=== PATIENT | male | born 1960 | race Caucasian/White ===

== ENCOUNTER 2020-07-30 09:34 | Outpatient (REF) | payer BC, SELFPAY ==
--- NOTE | 2020-07-30 09:30 | EMG_ITS ---
Bilateral median and ulnar motor and sensory studies were performed. Bilateral radial sensory study was performed and paraspinal muscles were tested. IMPRESSION: 1. Mild left median neuropathy across carpal tunnel, the right was normal. 2. No evidence of cervical radiculopathy or any other nerve entrapment neuropathy. MD JARROD Goodwin/CARLEE / [phone]
== END 2020-07-30 09:35 | disposition home or self-care (01) ==
LOC: HO.NEURO 09:34
PROVIDERS: Absent Provider Internal Medicine; Visit Provider Internal Medicine
DX: Z20.828 Contact with and (suspected) exposure to other viral communicable diseases (principal); G56.03 Carpal tunnel syndrome, bilateral upper limbs; M47.812 Spondylosis without myelopathy or radiculopathy, cervical region
CPT/HCPCS: 95860; 95886; 95911; C9803; U0003

== ENCOUNTER 2020-09-02 06:37 | Outpatient (REF) | payer BC, SELFPAY | END 2020-09-02 06:38 | disposition home or self-care (01) | LOC: HO.LAB 06:37 | PROVIDERS: Visit Provider Internal Medicine | DX: Z20.828 Contact with and (suspected) exposure to other viral communicable diseases (principal) | CPT/HCPCS: C9803; U0003 ==

== ENCOUNTER 2020-09-30 05:52 | Emergency (ER) | payer OTHER, SELFPAY ==
--- NOTE | 2020-09-30 | ECG_ITS ---
Test Reason : PALPATATIONS Blood Pressure : / mmHG Vent. Rate : 073 BPM Atrial Rate : 073 BPM P-R Int : 142 ms QRS Dur : 088 ms QT Int : 380 ms P-R-T Axes : 051 028 049 degrees QTc Int : 418 ms Normal sinus rhythm Possible Left atrial enlargement Borderline ECG When compared with ECG of 25-DEC-2019 04:15, No significant change was found Referred By: Audra Linsdey Electronically Signed By:Fidel Webster
[2020-09-30 05:57] VITALS: PULSE 73; RESP 19; TEMP 36.6; O2SAT 97; BMI 30.9
--- NOTE | 2020-09-30 06:16 | PC.NURSE ---
MD is at bedside for evaluation
--- NOTE | 2020-09-30 06:33 | ED.GENADULT ---
HPI - General Adult General Chief complaint: General Medical Stated complaint: TACHYCARDIA Time Seen by Provider: 09/30/20 06:23 Source: patient Mode of arrival: ambulatory History of Present Illness HPI narrative: This is a 60-year-old male who suffers from anxiety and states that he noticed that his heart was having palpitation once every 3rd beat and then began feeling the palpitation more frequently these are not associated with any headache, dizziness, lightheadedness, nausea, diaphoresis, chest pain, shortness of breath and patient states that he drink a glass of water and that his symptoms have since subsided. He states he is currently under workup and had an echo last week but no one has called him with the results and that he is in line to undergo a Holter monitor which he states was done approximately 5 years ago but states that that result was not significant. Patient states he does suffer from anxiety but not until his heart starts having palpitations. Related Data Home Medications Medication Instructions Recorded Confirmed amlodipine 1 tab PO DAILY 09/30/20 09/30/20 aspirin 1 tab PO DAILY 09/30/20 09/30/20 lisinopril-hydrochlorothiazide 1 tab PO BID 09/30/20 09/30/20 Allergies Allergy/AdvReac Type Severity Reaction Status Date / Time No Known Allergies Allergy Verified 09/30/20 06:08 [No Known Allergies*] Review of Systems Review of Systems: Pertinent positives and negatives as stated in HPI and 10 point review of systems is otherwise negative. [facility] Past Medical History Source: nursing notes reviewed Medical History HTN (hypertension) Palpitation Social History Social History Alcohol intake: unknown Smoking Status: Never smoker Use of substances other than those prescribed or required for medical reasons: No Advance Directives: No Physical Exam Vital Signs: Vital Signs: Last Vital Signs Temp 98 F 09/30/20 05:57 Pulse 73 09/30/20 05:57 Resp 19 09/30/20 05:57 Pulse Ox 97 09/30/20 05:57 Body Mass Index 30.9 VITAL SIGNS: Reviewed. GENERAL: Well developed, well nourished, in no acute distress. NOSE: Nares patent bilateral OROPHARYNX: no oral lesions noted, posterior pharynx clear and non-erythematous without noted tonsillar enlargement/erythema/exudates NECK: Supple, no adenopathy LUNGS: Normal breath sounds. No adventitious sounds or accessory muscle use. SpO2<97> CARDIOVASCULAR: Regular rate and rhythm without noted murmurs, no JVD or lower extremity edema. ABDOMEN: Soft, non-tender, non-distended with bowel sounds. No rigidity. No guarding. No palpable masses or hernias noted NEUROLOGIC: Alert and oriented x 4. Course Course Course Narrative: This is a 60 year male with history and clinical presentation most consistent with suspected anxiety associated with the palpitations and currently asymptomatic. Will evaluate with labs, EKG, TSH. On review of all investigations there are no acute findings from baseline. All results and findings were discussed with patient at bedside and he was discharged in stable condition and instructed to continue with his current workup. Medical Decision Making Lab Data Result diagrams: 09/30/20 06:26 09/30/20 06:26 Labs: Lab Results 09/30/20 09/30/20 09/30/20 Range/Units 06:26 06:26 06:26 WBC 6.4 (4.8-10.8) X10*3/uL RBC 4.60 (4.60-5.80) X10*6/uL Hgb 14.7 (14.0-18.0) g/dl Hct 43.4 (42-52) % MCV 94.3 (80-98) fL MCH 32.0 (27.0-33.0) pg MCHC 33.9 (31.0-36.0) g/dl RDW 13.2 (11.0-16.0) % Plt Count 172 (160-400) X10*3/uL MPV 11.0 (9.4-12.4) fL Immature Gran % (Auto) 0.2 (0.0-0.4) % Neut % (Auto) 52.2 (45-73) % Lymph % (Auto) 36.4 (20-40) % Dunn % (Auto) 9.1 (2-11) % Eos % (Auto) 1.6 (0-4) % Baso % (Auto) 0.5 (0-2) % Lymph # (Auto) 2.3 (1.2-4.9) X10*3/uL Dunn # (Auto) 0.6 (0.1-1.2) X10*3/uL Eos # (Auto) 0.1 (0.0-0.4) X10*3/uL Baso # (Auto) 0.0 (0.0-0.2) X10*3/uL Abs Immat Gran (auto) 0.01 (0.00-0.03) X10*3/uL Absolute Neuts (auto) 3.4 (2.0-8.3) X10*3/uL Absolute Nucleated RBC 0.000 (0.0-0.012) X10*3/uL Nucleated RBC % (auto) 0.0 (0.0-0.2) /100WBC Sodium 136 (135-145) mmol/L Potassium 3.9 (3.3-5.1) mmol/l Chloride 102 (96-108) mmol/L Carbon Dioxide 23 (22-29) mmol/L Anion Gap 15 (12-20) BUN 34 H (9-16) mg/dL Creatinine 1.25 (0.5-1.4) mg/dL Estim Creat Clear Calc 73.7 Estimated GFR 59 Random Glucose 135 H (60-115) mg/dL Calcium 9.0 (8.4-10.2) mg/dL Magnesium 1.8 (1.6-2.6) mg/dL Total Bilirubin 0.5 (0.0-1.0) mg/dL AST 20 (5-37) U/L ALT 29 (0-40) U/L Alkaline Phosphatase 60 (39-117) U/L Total Protein 6.9 (6.5-8.0) g/dL Albumin 4.2 (3.5-5.0) g/dL ECG Data Attestation: I personally reviewed and interpreted this ECG as follows: Prior ECG tracings: available for review (12/25/2019 no acute changes in comparison) Interpretation: Normal sinus rhythm, HR -73, no evidence of acute ischemia, AR/QRS/QTC are within normal limits. Discharge Plan Discharge Clinical Impression: Anxiety, Heart palpitations Patient Disposition: Home, Self-Care Instructions: Heart Palpitations (ED), Anxiety (ED) Additional Instructions: Resume all home medications as prescribed. Continue with recommended workup for your palpitations and follow-up with your primary care provider by calling the office today. Avoid caffeinated products, this includes sodas/T/coffee. Prescriptions: No Action lisinopril-hydrochlorothiazide 20-12.5 mg tablet 1 tab PO BID RF: 0 amlodipine 2.5 mg tablet 1 tab PO DAILY RF: 0 aspirin 81 mg tablet,chewable 1 tab PO DAILY RF: 0 Referrals: [facility] [Primary Care Provider] - 2 days (Re-evaluation for her palpitations)
[2020-09-30 06:38] LABS: MANUAL DIFF FLAG NO
[2020-09-30 06:45] LABS: Basophils Percent Auto 0.5 % (0-2); Eosinophils Absolute Auto 0.1 X10*3/uL (0.0-0.4); Eosinophils Percent Auto 1.6 % (0-4); Hematocrit 43.4 % (42-52); Hemoglobin 14.7 g/dl (14.0-18.0); Imm Gran Abs Auto 0.01 X10*3/uL (0.00-0.03); Imm Gran Pct Auto 0.2 % (0.0-0.4); Lymphocytes Absolute Auto 2.3 X10*3/uL (1.2-4.9); Lymphocytes Percent Auto 36.4 % (20-40); Mean Corpuscular HGB Conc 33.9 g/dl (31.0-36.0); Mean Corpuscular Volume 94.3 fL (80-98); Monocytes Absolute Auto 0.6 X10*3/uL (0.1-1.2); Monocytes Percent Auto 9.1 % (2-11); Neutrophils Absolute Auto 3.4 X10*3/uL (2.0-8.3); Neutrophils Percent Auto 52.2 % (45-73); Platelet Count 172 X10*3/uL (160-400); Red Cell Distribution Width 13.2 % (11.0-16.0); White Blood Count 6.4 X10*3/uL (4.8-10.8)
[2020-09-30 07:04] LABS: Magnesium 1.8 mg/dL (1.6-2.6)
[2020-09-30 07:05] LABS: Alanine Aminotransferase 29 U/L (0-40); Albumin Level 4.2 g/dL (3.5-5.0); Alkaline Phosphatase 60 U/L (39-117); Anion Gap 15 (12-20); Aspartate Amino Transferase 20 U/L (5-37); Bilirubin Total 0.5 mg/dL (0.0-1.0); Blood Urea Nitrogen 34 mg/dL (9-16); Carbon Dioxide 23 mmol/L (22-29); Chloride 102 mmol/L (96-108); Creatinine Clr Calc Pharmacy 73.7; Estimated Glomerular Filt Rate 59; Glucose Random 135 mg/dL (60-115); Potassium 3.9 mmol/l (3.3-5.1); Sodium 136 mmol/L (135-145); Total Protein 6.9 g/dL (6.5-8.0)
[2020-09-30 07:25] LABS: TSH reflex Free T4 0.88 mIU/mL (0.32-4.0)
[2020-09-30 07:48] VITALS: BP 169/97; PULSE 65; RESP 18; TEMP 36.7; O2SAT 96
== END 2020-09-30 07:52 | disposition home or self-care (01) ==
PROVIDERS: Emergency Provider Student in an Organized Health Care Education/Training Program
DX: R00.0 Tachycardia, unspecified (principal); R00.2 Palpitations; F41.9 Anxiety disorder, unspecified; Z79.899 Other long term (current) drug therapy
CPT/HCPCS: 36415; 80053; 83735; 84443; 85025; 93005; 99283; 99284

== ENCOUNTER 2020-10-18 03:43 | Emergency (ER) | payer OTHER, SELFPAY ==
--- NOTE | 2020-10-18 03:51 | ED.ARRPALP ---
HPI - Arrhythmia/Palpitations General Chief Complaint: Anxiety Stated Complaint: PALPITATIONS, ANXIETY Time Seen by Provider: 10/18/20 03:48 Source: patient and old records reviewed Mode of arrival: ambulatory Limitations: no limitations History of Present Illness HPI narrative: anxiety - states he was told by his Manager [employer] that he might have renal insufficiency and for the past 3 days he cannot get past it and wants his kidney function checked, c/o sore back that went away not sure if its where his kidneys are, took a xanax yesterday, noted its making his heart race, drank before bed complaint: heart racing Onset (ago): day(s) (3) Duration: intermittent Severity: mild Context: occurred during rest Arrhythmia history: other (hx of palpitations in the past has had holter and ECHO with cards follow up no known cause) Associated symptoms: denies other symptoms Related Data Home Medications Medication Instructions Recorded Confirmed amlodipine 1 tab PO DAILY 09/30/20 09/30/20 aspirin 1 tab PO DAILY 09/30/20 09/30/20 lisinopril-hydrochlorothiazide 1 tab PO BID 09/30/20 09/30/20 Allergies Allergy/AdvReac Type Severity Reaction Status Date / Time No Known Allergies Allergy Verified 09/30/20 06:08 [No Known Allergies*] Review of Systems Review of Systems: Constitutional : No Weight loss, No Fever, No Chills, No Fatigue, No Malaise ENT/Mouth : No sore throat, No Rhinorrhea Eyes: No Eye Pain, No Swelling, No Redness Cardiovascular : No Chest Pain, No SOB, No Dyspnea on Exertion, No Orthopnea, No Edema, pos Palpitations Respiratory : No Cough, No Sputum, No Wheezing Gastrointestinal : No Nausea, No Vomiting, No Diarrhea, No Constipation, No abdominal Pain, No Hematochezia, No Melena Genitourinary : No Dysuria, No Urinary Frequency, No Hematuria, Musculoskeletal : No joint pain, No Myalgias, No Joint Swelling, pos intermittent back pain Skin : No Skin Lesions, No rash Neuro : No Weakness, No Numbness, No Dizziness, No Headache Psych : pos Anxiety/Panic, No Depression Heme/Lymph: No Bruising, No Bleeding,No Lymphadenopathy Endocrine : No Polyuria, No Polydipsia All other systems reviewed and are negative [facility] Past Medical History Attestation statement: The following information was validated with the patient. Medical History HTN (hypertension) Palpitation Social History Social History Alcohol intake: unknown Smoking Status: Never smoker Advance Directives: No Advance Directives Information Provided: No Physical Exam Vital Signs: Vital Signs: Last Vital Signs Temp 97.3 F 10/18/20 03:58 Pulse 84 10/18/20 03:58 Resp 16 10/18/20 03:58 BP 173/111 H 10/18/20 03:58 Pulse Ox 96 10/18/20 03:58 Body Mass Index 30.9 Appearance: Alert. Oriented X3. No acute distress. Anxious Eyes: Pupils equal, round and reactive to light. ENT: Pharynx normal. Neck: Normal inspection. Neck supple. CVS: Normal heart rate and rhythm. Pulses normal. Respiratory: No respiratory distress. Breath sounds normal. Abdomen: Soft and nontender. Back: nontender, no CVA ttp Skin: Skin warm and dry. Normal skin color. Normal skin turgor. Extremities: No lower extremity edema. No calf ttp Neuro: Oriented X 3. No motor deficit. No sensory deficit. Course Course Course Narrative: BP improved, workup negative, stable for DC MDM - Arrhythmia/Palpitations MDM Narrative Medical decision making narrative: 60 yo male with anxiety and lonstanding palpitations with no source followed by Cardiology comes in requesting a blood test to make sure his kidneys are okay, patient is very anxious, he has no current pain to suggest stone - at this time will obtain EKG, UA, BMP - suspect ETOH is playing a part in his symptoms, xanax ordered, if workup negative stable for DC. Lab Data Result diagrams: 10/18/20 04:28 Labs: Lab Results 10/18/20 10/18/20 10/18/20 Range/Units 04:28 04:28 04:28 Sodium 137 (135-145) mmol/L Potassium 3.9 (3.3-5.1) mmol/l Chloride 102 (96-108) mmol/L Carbon Dioxide 25 (22-29) mmol/L Anion Gap 14 (12-20) BUN 39 H (9-16) mg/dL Creatinine 1.49 H (0.5-1.4) mg/dL Estim Creat Clear Calc 61.8 Estimated GFR 48 Random Glucose 155 H (60-115) mg/dL Calcium 9.2 (8.4-10.2) mg/dL Urine Color YELLOW Urine Appearance CLEAR Urine pH 6.0 (5.0-8.0) Ur Specific [place] 1.010 (1.005-1.025) Urine Protein NEG (NEG-TRACE) MG/DL Urine Glucose (UA) NEG (NEG) MG/DL Urine Ketones NEG (NEG) MG/DL Urine Blood NEG (NEG) Urine Nitrite NEG (NEG) Ur Leukocyte Esterase NEG (NEG) Ethyl Alcohol < 10 mg/dL ECG Data Attestation: I personally reviewed and interpreted this ECG as follows: ECG interpretation date: 10/18/20 ECG interpretation time: 04:24 Interpretation: Rate: 75 Rhythm: NSR [place]: normal Normal P waves. Normal DIVYA. Normal QRS complex. ST T wave : normal no CRISTEL qTC: normal prior studies: no acute ischemia The study has been interpreted contemporaneously by me. . Discharge Plan Discharge Clinical Impression: Acute anxiety, Chronic kidney insufficiency Patient Disposition: Home, Self-Care Instructions: Anxiety (ED), Chronic Kidney Disease (ED) Additional Instructions: return to ED for any worsening symptoms or concerns YOUR CREATININE IS 1.49 IN 2018 IT WAS 1.54 IT IS REMAINING STABLE AT THIS TIME Prescriptions: No Action lisinopril-hydrochlorothiazide 20-12.5 mg tablet 1 tab PO BID RF: 0 amlodipine 2.5 mg tablet 1 tab PO DAILY RF: 0 aspirin 81 mg tablet,chewable 1 tab PO DAILY RF: 0 Referrals: Navarro Saucedo PA-C [Primary Care Provider] - 2 days (if not better)
--- NOTE | 2020-10-18 03:52 | ECG_ITS ---
Test Reason : ANXIETY Blood Pressure : / mmHG Vent. Rate : 075 BPM Atrial Rate : 075 BPM P-R Int : 140 ms QRS Dur : 096 ms QT Int : 382 ms P-R-T Axes : 051 029 053 degrees QTc Int : 426 ms Normal sinus rhythm Normal ECG When compared with ECG of 30-SEP-2020 05:56, No significant change was found Referred By: Amada Whipple Electronically Signed By:ELMER CULVER
[2020-10-18 03:58] VITALS: BP 173/111; PULSE 84; RESP 16; TEMP 36.3; O2SAT 96; BMI 30.9
[2020-10-18] MEDS: ALPRAZolam 0.5 MG TABLET PO (04:17)
[2020-10-18 04:35] LABS: Glucose Urine UA NEG (NEG); Leukocyte Esterase Urine NEG (NEG); Nitrite Urine NEG (NEG); Urine Blood NEG (NEG); Urine Ketones NEG (NEG); Urine Protein NEG (NEG-TRACE)
[2020-10-18 04:36] LABS: Appearance Urine CLEAR; Color Urine YELLOW
[2020-10-18 04:57] LABS: Ethanol < 10 mg/dL
[2020-10-18 04:58] LABS: Anion Gap 14 (12-20); Blood Urea Nitrogen 39 mg/dL (9-16); Calcium 9.2 mg/dL (8.4-10.2); Carbon Dioxide 25 mmol/L (22-29); Chloride 102 mmol/L (96-108); Creatinine Clr Calc Pharmacy 61.8; Estimated Glomerular Filt Rate 48; Glucose Random 155 mg/dL (60-115); Potassium 3.9 mmol/l (3.3-5.1); Sodium 137 mmol/L (135-145)
[2020-10-18 05:02] VITALS: BP 139/86; PULSE 63; RESP 16; O2SAT 97
== END 2020-10-18 05:27 | disposition home or self-care (01) ==
PROVIDERS: Emergency Provider Emergency Medicine; PCP Physician Assistant
DX: R00.2 Palpitations (principal); F41.1 Generalized anxiety disorder; F43.0 Acute stress reaction; I12.9 Hypertensive chronic kidney disease with stage 1 through stage 4 chronic kidney disease, or unspecified chronic kidney disease; N18.9 Chronic kidney disease, unspecified; Z79.899 Other long term (current) drug therapy
CPT/HCPCS: 36415; 80048; 80320; 81003; 93005; 99283

== ENCOUNTER 2020-10-28 07:16 | Outpatient (REF) | payer OTHER, SELFPAY ==
[2020-10-28 08:01] LABS: Hematocrit 45.6 % (42-52); Mean Corpuscular HGB Conc 32.9 g/dl (31.0-36.0); Mean Corpuscular Hemoglobin 31.2 pg (27.0-33.0); Mean Corpuscular Volume 94.8 fL (80-98); Mean Platelet Volume 10.8 fL (9.4-12.4); Platelet Count 184 X10*3/uL (160-400); Red Blood Count 4.81 X10*6/uL (4.60-5.80); Red Cell Distribution Width 13.6 % (11.0-16.0); White Blood Count 6.5 X10*3/uL (4.8-10.8)
[2020-10-28 08:06] LABS: Estimated Average Glucose 114 mg/dL; Hemoglobin A1c % 5.6 %
[2020-10-28 08:43] LABS: Creatinine Urine 118.75 mg/dL; Microalbum/Creatinine Ratio Ur 9.2 ug/mg cr
[2020-10-28 08:43] LABS: Alanine Aminotransferase 26 U/L (0-40); Albumin Level 4.4 g/dL (3.5-5.0); Alkaline Phosphatase 58 U/L (39-117); Anion Gap 14 (12-20); Aspartate Amino Transferase 26 U/L (5-37); Bilirubin Total 0.8 mg/dL (0.0-1.0); Blood Urea Nitrogen 38 mg/dL (9-16); Calcium 9.4 mg/dL (8.4-10.2); Carbon Dioxide 27 mmol/L (22-29); Chloride 106 mmol/L (96-108); Cholesterol 207 mg/dL; Estimated Glomerular Filt Rate 47; Glucose Fasting 112 mg/dL (60-99); HDL Cholesterol 36 mg/dL; LDL Cholesterol Calculated 152 mg/dl; Potassium 4.6 mmol/L (3.3-5.1); Sodium 142 mmol/L (135-145); Total Protein 7.1 g/dL (6.5-8.0); Triglycerides 96 mg/dL
[2020-10-28 09:03] LABS: TSH reflex Free T4 0.69 uIU/mL (0.32-4.0)
== END 2020-10-28 07:17 | disposition home or self-care (01) ==
LOC: HO.LAB 07:16
PROVIDERS: PCP Physician Assistant; Visit Provider Physician Assistant
DX: I10 Essential (primary) hypertension (principal)
CPT/HCPCS: 36415; 80053; 80061; 82043; 83036; 84443; 85027

== ENCOUNTER → 2020-11-03 13:57 | Outpatient (BNVA) | payer OTHER, SELFPAY | PROVIDERS: PCP Physician Assistant; Visit Provider Internal Medicine ==

== ENCOUNTER 2020-11-13 12:06 | Outpatient (REF) | payer OTHER, SELFPAY ==
--- NOTE | 2020-11-16 11:24 | MHC.AU.P13 ---
Adult Audiological Evaluation Date of Visit: 11/13/20 Reason for Appointment: Audiological evaluation due to concern for tinnitus. Mr. Foley reports constant ringing in his ears which has become very loud and has been worsening over time. He notes that his hearing seems to gradually be worsening as well and he has been turning the TV up a bit louder. He denies any significant history of noise exposure. Mr. Foley also reports episodes of vertigo that became very frequent between May-2019. He notes that when he would turn his head in certain positions, look up or down, or going over bumps in the car, he would start to experience spinning sensations that would last for a few minutes. Mr. Foley notes that since having ear wax removed from his ears in August [address] Carrion, the vertigo has been occurring less frequently, but he still experiences it on occasion. Does patient feel they have a hearing loss?: Unsure Hearing Handicap Inventory: HHIE SCORE: 8 Based on HHIE score, patient has: No perceived hearing handicap Ear History: Recent Ear Pain: Both Ears History of Ear Wax Buildup: Both Ears Bothersome Tinnitus/Ringing/Noises in Ears: Both Ears Medical History: Medical History: High Blood Pressure Medical History (Other): Anxiety Medication List: Amlodipine 2.5 mg, Lisinopril HCTZ 20-12.5, IC Alprazolam 0.25 Otoscopy: Right Ear: Unremarkable Left Ear: Unremarkable Tympanometry: Tympanometry performed due to: To assess integrity of the middle ear system Right Ear: Normal Middle Ear System (Type A) Left Ear: Hypercompliant Middle Ear System (Type Ad) Hearing Evaluation: Transducer(s) Used: Insert Earphones, Bone Conduction Method: Conventional Audiometry Stimuli Used: Right Ear: Description of Hearing: Normal hearing from 250-1000 Hz, sloping to a mild sensorineural hearing loss at 2000 Hz, rising to normal hearing 4464-9484 Hz, and sloping to a mild hearing loss at 8000 Hz. Left Ear: Description of Hearing: Normal hearing from 250-2000 Hz, sloping to a mild sensorineural hearing loss at 3000 Hz, rising to normal hearing at 4000 Hz, and sloping to a mild hearing loss at 6000 Hz and a moderate hearing loss at 8000 Hz. Thresholds are 10-15 dBHL worse than the right ear at 5246-6225 Hz. Speech Recognition Threshold (SRT): Method Used: Monitored Live Voice Stimuli Used: Spondee Words Right Ear: 15 dBHL Left Ear: 15 dBHL Word Discrimination: Method: Recorded Lists Word Lists Used: NU-6 Right Ear: 100% at 55 dBHL Left Ear: 100% at 55 dBHL Recommendations: Audiological re-evaluation in one year. Amplification is not warranted at this time. Referral for vestibular testing (VNG or ENG) Referral to Ear, Nose, and Throat is recommended. Discussed tinnitus management and exacerbating factors, including high salt intake, caffeine, nicotine, certain medications, aspirin, and stress/anxiety. Recommend use of background noise (i.e. fan, music, radio, ambient noise generator) to help mask tinnitus when it is bothersome. Diagnosis: Primary Diagnosis: H90.3 Bilateral Sensorineural Hearing Loss Secondary Diagnosis: H93.13 Tinnitus, Bilateral Services Performed: Services Performed: Comprehensive Audiological Evaluation (CPT 92016) Tympanometry (CPT 63377) Signature: Provider: Pebbles Brice, CCC-A
== END 2020-11-13 12:07 | disposition home or self-care (01) ==
LOC: HO.SH 12:06
PROVIDERS: Visit Provider Physician Assistant
DX: H90.3 Sensorineural hearing loss, bilateral (principal); H93.13 Tinnitus, bilateral
CPT/HCPCS: 92557; 92567

== ENCOUNTER 2020-11-27 07:53 | Emergency (ER) | payer OTHER, SELFPAY ==
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
[2020-11-27 08:14] VITALS: BP 145/88; PULSE 68; RESP 20; TEMP 36.6; O2SAT 97; BMI 30.7
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
== END 2020-11-27 10:27 | disposition home or self-care (01) ==
PROVIDERS: Emergency Provider Emergency Medicine; PCP Physician Assistant
DX: R51.9 Headache, unspecified (principal); S13.4XXA Sprain of ligaments of cervical spine, initial encounter; V43.52XA Car driver injured in collision with other type car in traffic accident, initial encounter; Y93.89 Activity, other specified; Y92.414 Local residential or business street as the place of occurrence of the external cause; Y99.9 Unspecified external cause status
CPT/HCPCS: 70450; 99284

== ENCOUNTER → 2020-12-02 08:07 | Outpatient (BNVA) | payer OTHER, SELFPAY | PROVIDERS: PCP Physician Assistant; Visit Provider Internal Medicine ==

== ENCOUNTER → 2020-12-02 | Outpatient (REF) | payer OTHER, SELFPAY ==
--- NOTE | 2020-12-02 11:39 | HM_ITS ---
TEST PERFORMED: Cardiac event monitoring. ENROLLMENT PERIOD: 12/02/2020 to 01/01/2021 - 30 days. INDICATION: Palpitations. FINDINGS: In the above monitoring period, the underlying rhythm was sinus. Average rate was 71/min. Slowest was 46/min. Fastest 130/min. There was no evidence of any atrial fibrillation. There was evidence of supraventricular ectopy and some very short runs. There were also PVCs and ventricular couplets noted. During the time, he had reported palpitations, there was supraventricular ectopy. CONCLUSION: Study positive for PACs, short atrial runs, PVCs, ventricular couplets. Symptoms of palpitations correlate with atrial runs. Byron Peace MD HS/MODDes / [id number] MTDD
== END ==
LOC: HO.CARD
PROVIDERS: Visit Provider Internal Medicine
DX: R00.2 Palpitations (principal)
CPT/HCPCS: 93270; 93272

== ENCOUNTER → 2020-12-09 12:54 | Outpatient (REF) | payer OTHER, SELFPAY ==
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
== END ==
LOC: HO.CARD 12:54
PROVIDERS: Visit Provider Internal Medicine Cardiovascular Disease
DX: R00.2 Palpitations (principal)
CPT/HCPCS: 93306

== ENCOUNTER 2020-12-18 14:35 | Outpatient (REF) | payer OTHER, SELFPAY ==
--- NOTE | ~2020-12-18 | XR_ITS ---
EXAMINATION: XR SHOULDER, LEFT CLINICAL INFORMATION: Pain COMPARISON: None TECHNIQUE: AP external rotation, Grashey, scapular Y, and axillary views of the left shoulder. FINDINGS: Bone alignment is normal. No fracture or dislocation is seen. There is mild arthritis at the glenohumeral and acromioclavicular joint. There is mild soft tissue calcification adjacent to the left greater tuberosity suggestive of calcific tendinitis or bursitis. XR/XR shoulder LT min 2V IMPRESSION: Mild arthritis. Soft tissue calcification adjacent to the left greater tuberosity suggestive of calcific tendinitis or bursitis.
== END 2020-12-18 14:36 | disposition home or self-care (01) ==
LOC: HO.XRAY 14:35
PROVIDERS: PCP Physician Assistant; Visit Provider Physician Assistant
DX: M25.512 Pain in left shoulder (principal)
CPT/HCPCS: 73030

== ENCOUNTER 2020-12-21 15:57 | Outpatient (REF) | payer OTHER, SELFPAY ==
--- NOTE | ~2020-12-21 | XR_ITS ---
EXAMINATION: XR FOOT, LEFT CLINICAL INFORMATION: Pain left foot. COMPARISON: None TECHNIQUE: AP, lateral, and oblique views of the left foot. FINDINGS: There is loss of joint space with moderate periarticular spurring first MCP joint. No lytic or sclerotic process seen. The soft tissues are normal. The ankle mortise and subtalar joints are normal. There is a small retrocalcaneal spur. The soft tissues unremarkable. XR/XR foot LT 2V IMPRESSION: Small retrocalcaneal spur. Moderate degenerative changes first metacarpophalangeal joint. No visible acute fracture, dislocation or lytic process.
== END 2020-12-21 15:58 | disposition home or self-care (01) ==
LOC: HO.XRAY 15:57
PROVIDERS: PCP Physician Assistant; Visit Provider Physician Assistant
DX: M79.672 Pain in left foot (principal)
CPT/HCPCS: 73620

== ENCOUNTER 2021-01-12 08:07 | Outpatient (REF) | payer OTHER, SELFPAY ==
[2021-01-12 08:34] LABS: COVID-19 Test Negative (Negative)
== END 2021-01-12 08:08 | disposition home or self-care (01) ==
LOC: HO.LAB 08:07
PROVIDERS: Visit Provider Internal Medicine
DX: Z20.822 Contact with and (suspected) exposure to COVID-19 (principal)
CPT/HCPCS: 36415; 87635; C9803

== ENCOUNTER → 2021-01-13 08:03 | Outpatient (BNVA) | payer OTHER, SELFPAY | PROVIDERS: PCP Physician Assistant; Visit Provider Internal Medicine ==

== ENCOUNTER 2021-01-24 07:01 | Emergency (ER) | payer OTHER, SELFPAY ==
--- NOTE | ~2021-01-24 | CT_ITS ---
EXAMINATION: CT SOFT TISSUE NECK WITH CONTRAST CLINICAL INFORMATION: Throat pain. Evaluate for mass. COMPARISON: None TECHNIQUE: Following the intravenous administration of 100 mL of Omnipaque 350 intravenous contrast, helical imaging was performed in the axial plane with generation of coronal and sagittal reformatted images. This CT examination was performed using dose optimization techniques as appropriate, variously including the following: *Automated exposure control *Adjustment of mA and/or kV according to patient size (this includes techniques or standardized protocols for targeted exams where dose is matched to indication/reason for exam; i.e. extremities or head) *Use of iterative reconstruction technique DLP: 879 mGy-cm FINDINGS: No cervical adenopathy is identified. The parotid glands are homogeneous in attenuation. The submandibular glands are normal. No contour abnormality or pathologic enhancement is seen within the oral cavity or pharyngeal mucosal space. The laryngeal structures are normal. The parapharyngeal fat is preserved. The carotid sheath vasculature opacify normally. No extra mucosal soft tissue mass or fluid collection is seen. No retropharyngeal fluid collection is seen. The thyroid gland is normal. The superior mediastinum is unremarkable. The lung apices are clear. Small secretions present within the right anterior ethmoid air cells. Chronic the indwelling of the left lamina papyracea. Mastoid air cells are clear. Mandible and temporomandibular joints are intact. Imaged brain parenchyma unremarkable. CT/CT soft tissue neck w con IMPRESSION: No neck mass is identified. No evidence of inflammation or deep space infection.
--- NOTE | ~2021-01-24 | XR_ITS ---
EXAMINATION: XR CHEST CLINICAL INFORMATION: Rule out aspiration pneumonia COMPARISON: None TECHNIQUE: Frontal view of the chest was obtained. FINDINGS: Normal symmetric lung volumes. No parenchymal consolidation. No pleural effusion. No pneumothorax. Cardiomediastinal silhouette and pulmonary vascularity are within normal limits. No acute osseous abnormalities. XR/XR chest 1V IMPRESSION: Unremarkable examination.
[2021-01-24 07:08] VITALS: BP 174/100; PULSE 81; RESP 18; TEMP 36.5; O2SAT 97; BMI 30.9
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
[2021-01-24 08:42] VITALS: BP 152/87; PULSE 65; RESP 16; O2SAT 95
[2021-01-24] MEDS: 0.9 % Sodium Chloride 1,000 ML 999 ML IVCONT (08:45)
[2021-01-24 08:52] LABS: MANUAL DIFF FLAG NO
[2021-01-24 08:55] LABS: Basophils Percent Auto 0.5 % (0-2); Eosinophils Absolute Auto 0.1 X10*3/uL (0.0-0.4); Eosinophils Percent Auto 1.5 % (0-4); Hematocrit 45.1 % (42-52); Hemoglobin 14.8 g/dl (14.0-18.0); Imm Gran Abs Auto 0.02 X10*3/uL (0.00-0.03); Imm Gran Pct Auto 0.3 % (0.0-0.4); Lymphocytes Absolute Auto 1.8 X10*3/uL (1.2-4.9); Lymphocytes Percent Auto 29.3 % (20-40); Mean Corpuscular HGB Conc 32.8 g/dl (31.0-36.0); Mean Corpuscular Hemoglobin 30.9 pg (27.0-33.0); Mean Corpuscular Volume 94.2 fL (80-98); Mean Platelet Volume 10.6 fL (9.4-12.4); Monocytes Absolute Auto 0.7 X10*3/uL (0.1-1.2); Monocytes Percent Auto 10.7 % (2-11); Neutrophils Absolute Auto 3.5 X10*3/uL (2.0-8.3); Neutrophils Percent Auto 57.7 % (45-73); Platelet Count 181 X10*3/uL (160-400); Red Blood Count 4.79 X10*6/uL (4.60-5.80); Red Cell Distribution Width 13.4 % (11.0-16.0); White Blood Count 6.1 X10*3/uL (4.8-10.8)
[2021-01-24 09:28] LABS: Anion Gap 13 (12-20); Blood Urea Nitrogen 33 mg/dL (9-16); Calcium 9.4 mg/dL (8.4-10.2); Carbon Dioxide 28 mmol/L (22-29); Chloride 101 mmol/L (96-108); Creatinine Clr Calc Pharmacy 63.1; Estimated Glomerular Filt Rate 49; Glucose Random 126 mg/dL (60-115); Potassium 4.6 mmol/L (3.3-5.1); Sodium 137 mmol/L (135-145)
[2021-01-24 10:29] LABS: Glucose, Whole Blood 114 mg/dL (60-115)
[2021-01-24] MEDS: iohexoL 350 MG/ML 100 ML INFUS..BTL IV (10:54)
--- NOTE | 2021-01-24 11:25 | PC.NURSE ---
pt's is at bedside, pt states that he is not as anxious as he was earlier and has refused ativan 1mg and iv fluids. pt states that when he goes home he will drink alot of fluids. dr. cabrales aware.
[2021-01-24 11:27] VITALS: BP 158/91; PULSE 65; RESP 16; TEMP 36.7; O2SAT 97
== END 2021-01-24 12:16 | disposition home or self-care (01) ==
PROVIDERS: Emergency Provider Emergency Medicine; PCP Physician Assistant
DX: R68.89 Other general symptoms and signs (principal); K21.9 Gastro-esophageal reflux disease without esophagitis; I10 Essential (primary) hypertension
CPT/HCPCS: 36415; 70491; 71045; 80048; 82947; 85025; 96360; 96361; 99284; Q9967

== ENCOUNTER 2021-01-25 15:00 | Outpatient (RCR) | payer OTHER, SELFPAY ==
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
== END 2021-03-15 13:48 | disposition other institution (70) ==
LOC: HO.PT 15:00
PROVIDERS: PCP Physician Assistant; Visit Provider Physician Assistant
DX: M79.672 Pain in left foot (principal); V89.2XXA Person injured in unspecified motor-vehicle accident, traffic, initial encounter; H81.10 Benign paroxysmal vertigo, unspecified ear
CPT/HCPCS: 97110; 97112; 97140; 97162

== ENCOUNTER 2021-02-01 07:34 | Outpatient (REF) | payer OTHER, SELFPAY ==
[2021-02-01 07:51] LABS: COVID-19 Test Negative (Negative)
== END 2021-02-01 07:35 | disposition home or self-care (01) ==
LOC: HO.LAB 07:34
PROVIDERS: Visit Provider Internal Medicine
DX: Z20.822 Contact with and (suspected) exposure to COVID-19 (principal)
CPT/HCPCS: 36415; 87635; C9803

== ENCOUNTER 2021-02-01 14:16 | Outpatient (REF) | payer OTHER, SELFPAY ==
--- NOTE | ~2021-02-01 | FL_ITS ---
EXAMINATION: FL BARIUM SWALLOW CLINICAL INFORMATION: Dysphagia. COMPARISON: None TECHNIQUE: Barium swallow examination is performed using fluoroscopic evaluation in addition to multiple fluoroscopic spot views. The patient is imaged both upright and prone and using both thick and thin sulfate along with effervescent granules. Fluoroscopy time: 1.6 minutes DAP: 22.72 Gycm2 Images: 64 FINDINGS: Following oral administration of thick barium and barium coated turkey there is normal propagation of bolus from the oral cavity through the pharynx, esophagus into stomach without obstruction or narrowing or stricture. There is no laryngeal penetration or aspiration seen. On placing patient prone and oral administration of thin barium there is good opacification of entire esophagus without any intraluminal filling defect or extrinsic compression. Small hiatal hernia noted with minimal gastroesophageal reflux. FL/FL barium swallow IMPRESSION: Small hiatal hernia with minimal gastroesophageal reflux. Rest of the barium swallow exam is unremarkable.
== END 2021-02-01 14:17 | disposition home or self-care (01) ==
LOC: HO.XRAY 14:16
PROVIDERS: PCP Physician Assistant; Visit Provider Physician Assistant
DX: R13.14 Dysphagia, pharyngoesophageal phase (principal); K44.9 Diaphragmatic hernia without obstruction or gangrene
CPT/HCPCS: 74220

== ENCOUNTER 2021-02-08 07:12 | Emergency (ER) | payer OTHER, SELFPAY ==
--- NOTE | ~2021-02-08 | XR_ITS ---
EXAMINATION: CHEST AND LUMBAR SPINE.. CLINICAL INFORMATION: Low back pain with breathing. COMPARISON: Chest 01/24/2021 TECHNIQUE: Chest 2 views. Lumbar spine 3 views. FINDINGS: CHEST: Both lungs are fairly well-expanded and clear of acute process. Heart size and pulmonary vascularity is normal. There is moderate spondylosis dorsal spine. No lytic process. LUMBAR SPINE: There is normal lumbar lordosis. The vertebral heights, alignment and disc heights are normal. There is no visible acute fracture, dislocation or lytic process seen. The SI joints are normal. The soft tissues are normal. XR/XR chest 2V IMPRESSION: Unremarkable lumbar spine exam. Unremarkable chest exam. There is moderate spondylosis dorsal spine.
--- NOTE | ~2021-02-08 | XR_ITS ---
EXAMINATION: CHEST AND LUMBAR SPINE.. CLINICAL INFORMATION: Low back pain with breathing. COMPARISON: Chest 01/24/2021 TECHNIQUE: Chest 2 views. Lumbar spine 3 views. FINDINGS: CHEST: Both lungs are fairly well-expanded and clear of acute process. Heart size and pulmonary vascularity is normal. There is moderate spondylosis dorsal spine. No lytic process. LUMBAR SPINE: There is normal lumbar lordosis. The vertebral heights, alignment and disc heights are normal. There is no visible acute fracture, dislocation or lytic process seen. The SI joints are normal. The soft tissues are normal. XR/XR lumbar spine 2-3V IMPRESSION: Unremarkable lumbar spine exam. Unremarkable chest exam. There is moderate spondylosis dorsal spine.
[2021-02-08 07:45] VITALS: BP 140/81; PULSE 80; RESP 16; TEMP 36.6; O2SAT 97; BMI 29.9
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
[2021-02-08] MEDS: Acetaminophen 325 MG TABLET 650 MG PO (08:23)
[2021-02-08 08:37] LABS: Glucose Urine UA NEG (NEG); Leukocyte Esterase Urine NEG (NEG); Nitrite Urine NEG (NEG); Urine Blood NEG (NEG); Urine Ketones NEG (NEG); Urine Protein NEG (NEG-TRACE)
[2021-02-08 08:38] LABS: Appearance Urine CLEAR; Color Urine YELLOW
== END 2021-02-08 09:29 | disposition home or self-care (01) ==
PROVIDERS: Emergency Provider Emergency Medicine; PCP Physician Assistant
DX: S39.012A Strain of muscle, fascia and tendon of lower back, initial encounter (principal); X58.XXXA Exposure to other specified factors, initial encounter; I12.9 Hypertensive chronic kidney disease with stage 1 through stage 4 chronic kidney disease, or unspecified chronic kidney disease; N18.30 Chronic kidney disease, stage 3 unspecified; Y93.9 Activity, unspecified; Y92.9 Unspecified place or not applicable; Y99.9 Unspecified external cause status
CPT/HCPCS: 71046; 72100; 81003; 99283; 99284

== ENCOUNTER → 2021-03-16 12:49 | Outpatient (BNVA) | payer OTHER, SELFPAY | PROVIDERS: PCP Physician Assistant; Referring Provider Physician Assistant; Visit Provider Physician Assistant ==

== ENCOUNTER 2021-03-22 12:51 | Day surgery (SDC) | payer OTHER, SELFPAY ==
[2021-03-22 13:46] VITALS: BP 126/69; PULSE 74; RESP 16; TEMP 36.4; O2SAT 98; BMI 27.9
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
--- NOTE | 2021-03-22 14:21 | PM.OP ---
Brief Operative Note Date of Service: 03/22/21 Pre-op diagnosis: dysphagia Post-op diagnosis: same Procedure: see op note Surgeon: Navya Nicolas MD Anesthesia: MAC Was an Mill Beam Fitter used for this Procedure?: No Estimated blood loss (mL): 0 Condition: stable Disposition: PACU
--- NOTE | 2021-03-22 14:21 | W.PM.OPN ---
Operative Note Operative Note Date of Service: 03/22/21 Narrative: Procedure Description: EGD FLEXIBLE TRANSORAL UPPER GASTROINTESTINAL ENDOSCOPY UPPER ENDOSCOPY Consent: Indications for the procedure and potential complications of bleeding, perforation, reaction to medications and missed diagnosis were discussed with the patient and informed consent was obtained. Instrument: Olympus GIF H 190 J mid size upper endoscope Monitoring: Vital signs and clinical assessment, continuous EKG monitoring, Pulse oximetry, Carbon Dioxide monitoring and blood pressure monitoring were done throughout the procedure. Procedure: The patient was placed in the left lateral decubitis position and pre-procedure medications were administered and a bite block was placed. The endoscope was inserted into the mouth and advanced under direct vision to the third part of duodenum. A careful inspection was made as the upper endoscope was withdrawn including a retroflexed examination of the proximal stomach; Findings and interventions are described below. Findings: Larynx:normal Esophagus: GE junction at 38 cm, diaphragm hiatus at 38 cm, moderate severe esophagitis, LA grade B, bx taken, also non obstructive schatzki ring noted. The LES seemed a little lax. Stomach: Patchy gastric erythema. Biopsies were obtained. Grade 2 flap valve on retroflexed examination of the cardia. Duodenum: Moderate severe erosive duodenitis in bulb and second part of duodenum, bx taken Intervention: Biopsies as noted above Impression/Findings: schatzki ring esophagitis gastritis duodenitis PLAN: recommend high dose PPI for 3 months then titrated down confirm NSAId hx if h pylori pos then treat
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
[2021-03-22] MEDS: Lactated Ringers 500 ML 20 ML IVCONT (14:31)
[2021-03-22 14:55] VITALS: BP 83/47; PULSE 72; RESP 14; TEMP 36.4; O2SAT 96
[2021-03-22 15:10] VITALS: BP 101/67; PULSE 65; RESP 17; TEMP 36.4; O2SAT 98
== END 2021-03-22 15:44 | disposition home or self-care (01) ==
PROVIDERS: PCP Physician Assistant; Visit Provider Internal Medicine Gastroenterology
PROC: 0DJ08ZZ Inspection of Upper Intestinal Tract, Via Natural or Artificial Opening Endoscopic (ICD-10-PCS; CPT 43235; principal; 2021-03-22 14:30)
DX: K20.90 Esophagitis, unspecified without bleeding (principal); K22.2 Esophageal obstruction; K29.50 Unspecified chronic gastritis without bleeding; K29.80 Duodenitis without bleeding; K44.9 Diaphragmatic hernia without obstruction or gangrene; I10 Essential (primary) hypertension; Z79.899 Other long term (current) drug therapy; Z87.891 Personal history of nicotine dependence
CPT/HCPCS: 43239; 88305; 88342

== ENCOUNTER → 2021-04-07 08:06 | Outpatient (BNVA) | payer OTHER, SELFPAY | PROVIDERS: PCP Physician Assistant; Referring Provider Physician Assistant; Visit Provider Internal Medicine ==

== ENCOUNTER → 2021-06-22 11:33 | Outpatient (BNVA) | payer OTHER, SELFPAY | PROVIDERS: PCP Physician Assistant; Referring Provider Physician Assistant; Visit Provider Internal Medicine Gastroenterology ==

== ENCOUNTER 2021-09-03 11:35 | Outpatient (REF) | payer OTHER, SELFPAY ==
[2021-09-03 12:01] LABS: IDNOW Serial# 16C4AD1C
[2021-09-03 12:02] LABS: COVID-19 Test Negative (Negative)
== END 2021-09-03 11:36 | disposition home or self-care (01) ==
LOC: HO.LAB 11:35
PROVIDERS: Visit Provider Internal Medicine
DX: Z20.822 Contact with and (suspected) exposure to COVID-19 (principal)
CPT/HCPCS: 36415; 87635; C9803

== ENCOUNTER 2021-09-30 08:06 | Outpatient (REF) | payer OTHER, SELFPAY ==
[2021-09-30 11:56] LABS: Binax Now Covid-19 Ag Negative (Negative)
[2021-09-30 11:57] LABS: Binax Internal Control QC Valid
== END 2021-09-30 08:07 | disposition home or self-care (01) ==
LOC: HO.LAB 08:06
PROVIDERS: Visit Provider Internal Medicine
DX: Z20.822 Contact with and (suspected) exposure to COVID-19 (principal)
CPT/HCPCS: 36415; C9803

== ENCOUNTER → 2021-10-22 09:49 | Outpatient (BNVA) | payer OTHER, SELFPAY | PROVIDERS: PCP Physician Assistant; Referring Provider Physician Assistant; Visit Provider Internal Medicine Gastroenterology ==

== ENCOUNTER 2021-10-27 07:28 | Outpatient (REF) | payer OTHER, SELFPAY ==
--- NOTE | ~2021-10-27 | XR_ITS ---
EXAMINATION: XR SINUSES CLINICAL INFORMATION: Sinusitis COMPARISON: Chest radiographs 02/08/2021 TECHNIQUE: The sinuses are imaged in 4 views. FINDINGS: The sinuses show no air-fluid levels or polypoid mass or definite mucosal thickening. There is no sinus expansion or bony thickening or sclerosis or destructive process. Lateral view shows unremarkable nasopharynx. XR/XR sinus min 3V IMPRESSION: Unremarkable examination.
[2021-10-27 08:03] LABS: Hemoglobin 15.6 g/dl (14.0-18.0); Mean Corpuscular HGB Conc 32.5 g/dl (31.0-36.0); Mean Corpuscular Hemoglobin 30.8 pg (27.0-33.0); Mean Corpuscular Volume 94.7 fL (80.0-98.0); Mean Platelet Volume 10.6 fL (9.4-12.4); Platelet Count 174 X10*3/uL (160-400); Red Blood Count 5.07 X10*6/uL (4.60-5.80); Red Cell Distribution Width 14.2 % (11.0-16.0); White Blood Count 5.9 X10*3/uL (4.8-10.8)
[2021-10-27 08:39] LABS: Alanine Aminotransferase 20 U/L (0-40); Albumin Level 4.1 g/dL (3.5-5.0); Alkaline Phosphatase 81 U/L (39-117); Anion Gap 10 (12-20); Aspartate Amino Transferase 22 U/L (5-37); Bilirubin Total 0.4 mg/dL (0.0-1.0); Blood Urea Nitrogen 21 mg/dL (9-16); Calcium 9.5 mg/dL (8.4-10.2); Carbon Dioxide 29 mmol/L (22-29); Chloride 104 mmol/L (96-108); Cholesterol 184 mg/dL; Estimated Glomerular Filt Rate 60; Glucose Fasting 123 mg/dL (60-99); HDL Cholesterol 37 mg/dL; LDL Cholesterol Calculated 125 mg/dl; Potassium 4.5 mmol/L (3.3-5.1); Sodium 138 mmol/L (135-145); Total Protein 6.8 g/dL (6.5-8.0); Triglycerides 113 mg/dL
[2021-10-27 08:47] LABS: Prostate Specific Antigen Scr 1.81 ng/mL (<0.05-4.0); TSH reflex Free T4 0.79 uIU/mL (0.32-4.0)
== END 2021-10-27 07:29 | disposition home or self-care (01) ==
LOC: HO.LAB 07:28
PROVIDERS: Absent Provider Otolaryngology; PCP Physician Assistant; Visit Provider Physician Assistant
DX: J32.9 Chronic sinusitis, unspecified (principal); I10 Essential (primary) hypertension; Z12.5 Encounter for screening for malignant neoplasm of prostate
CPT/HCPCS: 36415; 70220; 80053; 80061; 84153; 84443; 85027

== ENCOUNTER 2021-11-03 10:59 | Outpatient (REF) | payer OTHER, SELFPAY ==
--- NOTE | ~2021-11-03 | XR_ITS ---
EXAMINATION: XR KNEE, RIGHT CLINICAL INFORMATION: Right knee pain. COMPARISON: None TECHNIQUE: AP and lateral views of the right knee. FINDINGS: There is no evidence of acute fracture or dislocation of the right knee. No right knee effusion identified. Right knee joint spaces are maintained. There is mild soft tissue prominence seen overlying the anterior patella. XR/XR knee RT 2V IMPRESSION: No significant bony abnormality of the right knee identified. No right knee effusion.
[2021-11-03 11:27] LABS: MANUAL DIFF FLAG NO
[2021-11-03 12:08] LABS: Basophils Percent Auto 0.3 % (0-2); Eosinophils Percent Auto 0.7 % (0-4); Hematocrit 48.6 % (42.0-52.0); Hemoglobin 15.9 g/dl (14.0-18.0); Imm Gran Abs Auto 0.02 X10*3/uL (0.00-0.03); Imm Gran Pct Auto 0.3 % (0.0-0.4); Lymphocytes Absolute Auto 1.8 X10*3/uL (1.2-4.9); Lymphocytes Percent Auto 31.2 % (20-40); Mean Corpuscular HGB Conc 32.7 g/dl (31.0-36.0); Mean Corpuscular Hemoglobin 31.2 pg (27.0-33.0); Mean Corpuscular Volume 95.3 fL (80.0-98.0); Mean Platelet Volume 10.9 fL (9.4-12.4); Monocytes Absolute Auto 0.5 X10*3/uL (0.1-1.2); Monocytes Percent Auto 8.7 % (2-11); Neutrophils Absolute Auto 3.5 x10*3/uL (2.0-8.3); Neutrophils Percent Auto 58.8 % (45-73); Platelet Count 175 X10*3/uL (160-400); Red Cell Distribution Width 14.5 % (11.0-16.0); White Blood Count 5.9 X10*3/uL (4.8-10.8)
[2021-11-03 12:30] LABS: Creatinine Urine 53.89 mg/dL; Microalbum/Creatinine Ratio Ur 35.2 ug/mg cr
[2021-11-03 12:33] LABS: Alanine Aminotransferase 26 U/L (0-40); Albumin Level 4.4 g/dL (3.5-5.0); Alkaline Phosphatase 65 U/L (39-117); Anion Gap 12 (12-20); Aspartate Amino Transferase 26 U/L (5-37); Carbon Dioxide 29 mmol/L (22-29); Chloride 102 mmol/L (96-108); Cholesterol 208 mg/dL; Estimated Glomerular Filt Rate > 60; Glucose Fasting 112 mg/dL (60-99); HDL Cholesterol 43 mg/dL; LDL Cholesterol Calculated 148 mg/dl; Potassium 4.8 mmol/L (3.3-5.1); Sodium 138 mmol/L (135-145); Total Protein 7.4 g/dL (6.5-8.0); Triglycerides 89 mg/dL
[2021-11-03 12:48] LABS: Erythrocyte Sedimentation Rate 4 MM/HR (0-15)
[2021-11-03 15:00] LABS: Blood Urea Nitrogen 24 mg/dL (9-16); Calcium 9.6 mg/dL (8.4-10.2)
[2021-11-03 15:19] LABS: Uric Acid 8.2 mg/dL (3.4-7.0)
== END 2021-11-03 11:00 | disposition home or self-care (01) ==
LOC: HO.XRAY 10:59
PROVIDERS: Absent Provider Physician Assistant; PCP Physician Assistant; Visit Provider Nurse Practitioner Family
DX: M25.561 Pain in right knee (principal); M25.461 Effusion, right knee; I10 Essential (primary) hypertension
CPT/HCPCS: 36415; 73560; 80053; 80061; 82043; 84550; 85025; 85652; 86140

== ENCOUNTER 2021-11-09 09:17 | Day surgery (SDC) | payer OTHER, SELFPAY ==
[2021-11-03 10:38] VITALS: BMI 28.7
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
[2021-11-09 09:55] VITALS: BP 157/97; PULSE 62; RESP 16; TEMP 36.4; O2SAT 97
[2021-11-09] MEDS: Lactated Ringers 1,000 ML 100 ML IVCONT (10:12)
--- NOTE | 2021-11-09 11:34 | PM.OP ---
Brief Operative Note Date of Service: 11/09/21 Pre-op diagnosis: barretts, esophagitis Post-op diagnosis: same Procedure: see op note Surgeon: Navya Nicolas MD Anesthesia: MAC Was an Cold Work Operator used for this Procedure?: No Estimated blood loss (mL): 0 Condition: stable Disposition: PACU
--- NOTE | 2021-11-09 11:34 | W.PM.OPN ---
Operative Note Operative Note Date of Service: 11/09/21 Narrative: Procedure Description: EGD FLEXIBLE TRANSORAL UPPER GASTROINTESTINAL ENDOSCOPY UPPER ENDOSCOPY Consent: Indications for the procedure and potential complications of bleeding, perforation, reaction to medications and missed diagnosis were discussed with the patient and informed consent was obtained. Instrument: Olympus GIF H 190 J mid size upper endoscope Monitoring: Vital signs and clinical assessment, continuous EKG monitoring, Pulse oximetry, Carbon Dioxide monitoring and blood pressure monitoring were done throughout the procedure. Procedure: The patient was placed in the left lateral decubitis position and pre-procedure medications were administered and a bite block was placed. The endoscope was inserted into the mouth and advanced under direct vision to the third part of duodenum. A careful inspection was made as the upper endoscope was withdrawn including a retroflexed examination of the proximal stomach; Findings and interventions are described below. Findings: Larynx:normal Esophagus: GE junction at 36? cm, diaphragm hiatus at 38 cm, 2 cm sliding hiatal hernia noted, moderate esophagitis, LA grade A, bx taken, also non obstructive schatzki ring noted. The LES seemed a little lax as before Stomach: Patchy gastric erythema. Biopsies were obtained. Grade 2 flap valve on retroflexed examination of the cardia. Duodenum: normal Intervention: Biopsies as noted above Impression/Findings: schatzki ring esophagitis gastritis hiatal hernia PLAN: increase PPI to BId dosing again- will change forumlation maybe prevacid if insurance allows reflux precautions
[2021-11-09 11:39] VITALS: BP 107/58; PULSE 62; RESP 18; TEMP 36.4; O2SAT 99
[2021-11-09 12:00] VITALS: BP 126/80; PULSE 61; RESP 16; TEMP 36.4; O2SAT 99
== END 2021-11-09 12:49 | disposition home or self-care (01) ==
PROVIDERS: PCP Physician Assistant; Visit Provider Internal Medicine Gastroenterology
PROC: 0DJ08ZZ Inspection of Upper Intestinal Tract, Via Natural or Artificial Opening Endoscopic (ICD-10-PCS; CPT 43235; principal; 2021-11-09 10:40)
DX: K22.70 Barrett's esophagus without dysplasia (principal); K22.2 Esophageal obstruction; K29.50 Unspecified chronic gastritis without bleeding; K20.80 Other esophagitis without bleeding; K44.9 Diaphragmatic hernia without obstruction or gangrene; K21.9 Gastro-esophageal reflux disease without esophagitis; I10 Essential (primary) hypertension; N28.9 Disorder of kidney and ureter, unspecified; R09.82 Postnasal drip; Z79.899 Other long term (current) drug therapy; Z87.891 Personal history of nicotine dependence
CPT/HCPCS: 43239; 88305; 88342

== ENCOUNTER → 2021-12-03 09:55 | Outpatient (REF) | payer OTHER, SELFPAY ==
--- NOTE | 2021-12-03 09:58 | CA_ITS ---
Acquisition Time: 2021-12-03 10:09:21 Total Exercise Time: 00:10:28 Test Indications: Chest Pain Medications: LISINOPRIL/HCTZ CROMOLYN PANTOPRAZOLE ALPRAZOLAM Protocol: KYLER Max HR: 153 BPM 96% of Pred: 159 BPM Max BP: 150/096 mmHG Max Work Load: 12.4 METS Exercise stress test with exercise 10 min 28 sec of Kyler protocol, achieving 96% MPHR, 12.4 METs, without anginal symptoms, with isolated PACs and a few atrial cuplets, with blunted BP response to exercise with baseline BP 140/90 and max BP 150/96 per er medical technician, without EKG changes meeting criteria for ischemia. In recovery there is J point depression with upsloping ST segements inferiorly - nonspecific. BP 134/88 after 7 min recovery. Test reviewed with Dr Quevedo. Referred By: Navarro Saucedo Overread By: MISHA GRANDE
== END ==
LOC: HO.CARD 09:55
PROVIDERS: Visit Provider Physician Assistant
DX: R07.89 Other chest pain (principal)
CPT/HCPCS: 93017

== ENCOUNTER → 2021-12-20 10:18 | Outpatient (BNVA) | payer OTHER, SELFPAY | PROVIDERS: PCP Physician Assistant; Referring Provider Physician Assistant; Visit Provider Internal Medicine Gastroenterology | DX: K22.70 Barrett's esophagus without dysplasia (principal); K21.9 Gastro-esophageal reflux disease without esophagitis | CPT/HCPCS: 99212 ==

== ENCOUNTER 2021-12-29 11:08 | Outpatient (REF) | payer OTHER, SELFPAY ==
[2021-12-29 12:36] LABS: Uric Acid 8.6 mg/dL (3.4-7.0)
== END 2021-12-29 11:09 | disposition home or self-care (01) ==
LOC: HO.LAB 11:08
PROVIDERS: Podiatrist; PCP Physician Assistant; Visit Provider Internal Medicine Rheumatology
DX: M10.072 Idiopathic gout, left ankle and foot (principal); M79.675 Pain in left toe(s)
CPT/HCPCS: 36415; 84550

== ENCOUNTER 2022-02-08 06:16 | Emergency (ER) | payer OTHER, SELFPAY ==
--- NOTE | ~2022-02-08 | XR_ITS ---
EXAMINATION: XR KNEE, LEFT CLINICAL INFORMATION: Left knee injury COMPARISON: None TECHNIQUE: Four views of the left knee. FINDINGS: No fracture or subluxation. Compartmental joint spaces are maintained. Small marginal osteophytes at the medial and patellofemoral compartments. No joint effusion. The soft tissues are unremarkable. XR/XR knee LT 4V IMPRESSION: No fracture or malalignment.
[2022-02-08 06:31] VITALS: BP 178/100; PULSE 70; RESP 18; TEMP 36.6; O2SAT 97; BMI 28.7
--- NOTE | 2022-02-08 06:58 | ED.LOWEXIN ---
HPI - Extremity Injury (Lower) General Chief Complaint: Extremity Injury, Lower Stated Complaint: work inj below L knee Time Seen by Provider: 02/08/22 06:51 Source: patient Mode of arrival: ambulatory Limitations: no limitations History of Present Illness HPI Narrative: this is 61 years old patient presentedto the emergency department complaining of left knee pain, he stated that he injured the left knee against a recliner and since then he has been experiencing pain. Denies any fever chills. complaint: knee injury Onset (ago): day(s) ( Four days) Injury: Left: knee Type of Injury: blunt Place: home Severity: moderate Severity scale (1-10): 4 Relieving factors: nothing Exacerbating factors: nothing Context: direct blow Associated symptoms: ambulatory Other symptoms: none Treatments prior to arrival: cold therapy Related Data Previous Rx's Medication Instructions Recorded omeprazole 40 mg capsule,delayed 40 mg PO BID #90 cap 03/23/21 release cephalexin 500 mg capsule 500 mg PO Q8H #21 cap 02/08/22 naproxen 500 mg tablet (Naprosyn) 500 mg PO BID PRN #20 tab 02/08/22 Allergies Allergy/AdvReac Type Severity Reaction Status Date / Time No Known Allergies Allergy Verified 02/08/22 06:57 Review of Systems Review of Systems: denies any fever chill any systemic symptoms Yes all other systems are reviewed and are negative Constitutional: Constitutional: Reports no additional constitutional complaints ENT: Reports system reviewed and no additional complaints, except as documented Cardiovascular: Cardiovascular: Reports no additional cardiovascular complaints Neurologic: Reports system reviewed and no additional complaints, except as documented PMFSH Past Medical History [facility] Narrative: patient denies any medical problems Social History Social History Advance Directives: No Advance Directives Information Provided: No Physical Exam Vital Signs: Vital Signs: Last Vital Signs Temp 97.9 F 02/08/22 06:31 Pulse 70 02/08/22 06:31 Resp 18 02/08/22 06:31 BP 178/100 H 02/08/22 06:31 Pulse Ox 97 02/08/22 06:31 BMI result Body Mass Index 28.7 Const: Other: he looks well he is not toxic-appearing General: healthy appearing, comfortable, no acute distress, well developed, alert and awake; No acute distress Nutritional Appearance: average body habitus Orientation/consciousness: patient oriented x3 Limitations: no limitations HEENT: Head: Yes normal to inspection and Yes No palpable skull fracture present General nose exam: Normal external nose present Face and sinus: Yes normal facial exam Mouth: Normal oral and palatal mucosa present Throat: Yes posterior oropharynx normal Neck: Neck: Yes normal visual inspection, Yes full ROM and Yes no lymphadenopathy Chest: Chest palpation & inspection: normal inspection of the chest and normal palpation of entire chest wall Resp: Effort & Inspection: normal respiratory effort Auscultation: clear to auscultation bilaterally Cardio: Rate: regular rate Rhythm: regular rhythm GI: Inspection: Yes normal to inspection Palpation (GI): Soft to palpation, not firm, nontender and no guarding Neuro: General: patient oriented x3 Extrem: Other: examination of the left lower extremity shows redness in the prepatellar area, no effusion noted clinically no laceration or abrasion seen. The patient has excellent pulses in the lower extremity General: Yes full ROM, Yes capillary refill normal and Yes normal exam except as noted Left lower extremity: full ROM, no joint enlargement and knee (redness ,warm, no deformity no effusion) Course Course Course Narrative: patient is afebrile, nontoxic, he looks well I do not think we need to do blood work on this patient MDM - Extremity Injury (Lower) Imaging Data left knee: Radiologist's impression: EXAMINATION: XR KNEE, LEFT CLINICAL INFORMATION: Left knee injury? COMPARISON: None? TECHNIQUE: Four views of the left knee. FINDINGS: No fracture or subluxation. Compartmental joint spaces are maintained. Small marginal osteophytes at the medial and patellofemoral compartments. No joint effusion. The soft tissues are unremarkable.? XR/XR knee LT 4V IMPRESSION: No fracture or malalignment. ? Discharge Plan Discharge Clinical Impression: Bursitis, prepatellar, left, Cellulitis and abscess of left lower extremity Patient Disposition: Home, Self-Care Instructions: Cellulitis (DC) Additional Instructions: please call your primary care physician to make an appointment for follow-up, return if you have a fever, vomiting, worse. Rest your left lower extremity keep it elevated Prescriptions: New cephalexin 500 mg capsule 500 mg PO Q8H Qty: 21 0RF naproxen [Naprosyn] 500 mg tablet 500 mg PO BID PRN (Reason: PAIN) Qty: 20 0RF No Action omeprazole 40 mg capsule,delayed release(DR/EC) 40 mg PO BID Qty: 90 2RF Referrals: Navarro Saucedo PA-C [Primary Care Provider] - Interventions: ED Discharge Assessment Last Done: 02/08/22 07:36 Discharge Date/Time: 02/08/22 07:37
[2022-02-08] MEDS: NaPROXEN 500 MG TABLET PO (07:21)
[2022-02-08] MEDS: cephALEXin 500 MG CAPSULE PO (07:22)
== END 2022-02-08 07:37 | disposition home or self-care (01) ==
LOC: HO.ED 07:15
PROVIDERS: Emergency Provider Emergency Medicine; PCP Physician Assistant
DX: M70.52 Other bursitis of knee, left knee (principal); L03.116 Cellulitis of left lower limb; Z79.899 Other long term (current) drug therapy
CPT/HCPCS: 73564; 99282; 99283

== ENCOUNTER 2022-03-27 07:52 | Emergency (ER) | payer OTHER, SELFPAY ==
--- NOTE | ~2022-03-27 | XR_ITS ---
EXAMINATION: XR KNEE, LEFT CLINICAL INFORMATION: Left knee pain and swelling. COMPARISON: Left knee radiographs dated 02/08/2022. TECHNIQUE: Four views of the left knee. FINDINGS: No significant segmental degenerative joint changes are seen. There is no acute fracture or dislocation. There is no joint effusion. Mild prepatellar soft tissue swelling is seen. XR/XR knee LT 3V IMPRESSION: Mild prepatellar soft tissue swelling was not seen previously. Correlate with physical exam. No acute underlying osseous abnormality.
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
[2022-03-27 08:56] VITALS: BP 147/87; PULSE 86; RESP 18; TEMP 36.6; O2SAT 96; BMI 28.7
[2022-03-27] MEDS: Ketorolac Tromethamine 30 MG/ML VIAL IM (09:40)
[2022-03-27 10:42] LABS: MANUAL DIFF FLAG NO
[2022-03-27 11:00] LABS: Basophils Percent Auto 0.4 % (0-2); Eosinophils Absolute Auto 0.1 X10*3/uL (0.0-0.4); Eosinophils Percent Auto 1.2 % (0-4); Hematocrit 45.7 % (42.0-52.0); Hemoglobin 15.5 g/dl (14.0-18.0); Imm Gran Abs Auto 0.01 X10*3/uL (0.00-0.03); Imm Gran Pct Auto 0.1 % (0.0-0.4); Lymphocytes Absolute Auto 1.7 X10*3/uL (1.2-4.9); Lymphocytes Percent Auto 25.6 % (20-40); Mean Corpuscular HGB Conc 33.9 g/dl (31.0-36.0); Mean Corpuscular Hemoglobin 32.5 pg (27.0-33.0); Mean Corpuscular Volume 95.8 fL (80.0-98.0); Mean Platelet Volume 10.9 fL (9.4-12.4); Monocytes Absolute Auto 0.8 X10*3/uL (0.1-1.2); Monocytes Percent Auto 11.2 % (2-11); Neutrophils Absolute Auto 4.1 x10*3/uL (2.0-8.3); Neutrophils Percent Auto 61.5 % (45-73); Platelet Count 158 X10*3/uL (160-400); Red Blood Count 4.77 X10*6/uL (4.60-5.80); Red Cell Distribution Width 13.5 % (11.0-16.0); White Blood Count 6.7 X10*3/uL (4.8-10.8)
[2022-03-27 11:08] LABS: Alanine Aminotransferase 22 U/L (0-40); Albumin Level 4.3 g/dL (3.5-5.0); Alkaline Phosphatase 72 U/L (39-117); Anion Gap 12 (12-20); Aspartate Amino Transferase 23 U/L (5-37); Bilirubin Total 0.8 mg/dL (0.0-1.0); Blood Urea Nitrogen 23 mg/dL (9-16); C Reactive Protein 2.36 mg/dL (< or = 0.50); Calcium 9.1 mg/dL (8.4-10.2); Carbon Dioxide 26 mmol/L (22-29); Chloride 103 mmol/L (96-108); Creatinine Clr Calc Pharmacy 73.5; Estimated Glomerular Filt Rate > 60; Glucose Random 118 mg/dL (60-115); Potassium 4.2 mmol/L (3.3-5.1); Sodium 137 mmol/L (135-145); Total Protein 6.9 g/dL (6.5-8.0)
[2022-03-27 11:38] LABS: Erythrocyte Sedimentation Rate 8 MM/HR (0-15)
== END 2022-03-27 12:37 | disposition home or self-care (01) ==
PROVIDERS: Physician Assistant; Emergency Provider Emergency Medicine Emergency Medical Services; PCP Physician Assistant
DX: M25.562 Pain in left knee (principal); Z79.899 Other long term (current) drug therapy
CPT/HCPCS: 36415; 73562; 80053; 85025; 85652; 86140; 96372; 99283; 99284; J1885

== ENCOUNTER → 2022-03-30 09:46 | Outpatient (BNVA) | payer OTHER, SELFPAY | PROVIDERS: PCP Physician Assistant; Visit Provider Physician Assistant | DX: S76.102A Unspecified injury of left quadriceps muscle, fascia and tendon, initial encounter (principal); S86.812A Strain of other muscle(s) and tendon(s) at lower leg level, left leg, initial encounter; M70.52 Other bursitis of knee, left knee; M25.462 Effusion, left knee | CPT/HCPCS: 99202 ==

== ENCOUNTER → 2022-04-01 09:59 | Outpatient (BNVA) | payer OTHER, SELFPAY | PROVIDERS: PCP Physician Assistant; Visit Provider Physician Assistant | DX: M70.42 Prepatellar bursitis, left knee (principal) | CPT/HCPCS: 20610; 99212; J1100 ==

== ENCOUNTER → 2022-04-07 08:41 | Outpatient (BNVA) | payer OTHER, SELFPAY | PROVIDERS: PCP Physician Assistant; Visit Provider Physician Assistant | DX: S76.102A Unspecified injury of left quadriceps muscle, fascia and tendon, initial encounter (principal) | CPT/HCPCS: 99212 ==

== ENCOUNTER 2022-04-14 07:57 | Outpatient (REF) | payer OTHER, SELFPAY ==
--- NOTE | ~2022-04-14 | XR_ITS ---
EXAMINATION: PRE-MRI SCREENING CLINICAL INFORMATION: Rule out foreign body pre-MRI COMPARISON: None TECHNIQUE: 3 views. FINDINGS: There is no radiopaque foreign body seen in the visualized orbits. Visualized paranasal sinuses and mastoid air cells are well-aerated and clear. The soft tissues are normal. XR/XR pre mri screening IMPRESSION: No radiopaque foreign body seen in the orbits.
--- NOTE | ~2022-04-14 | MR_ITS ---
EXAMINATION: MR KNEE WITHOUT CONTRAST, LEFT CLINICAL INFORMATION: Left knee pain and swelling. Superior to the patella. Effusion. COMPARISON: Most recent left knee radiographs dated 03/27/2022. TECHNIQUE: MRI of the knee without contrast was performed using routine sequences on a high-field scanner. FINDINGS: MENISCI: Medial Meniscus: Oblique inner margin/tibial articular surface tear of the posterior meniscal body and posterior horn with irregular tearing along the inner margin of the posterior root. Lateral Meniscus: Mild fraying of the posterior root. LIGAMENTS: Cruciate: Intact Collateral: Intact EXTENSOR MECHANISM: Distal quadriceps tendinosis. There is linear intrasubstance fluid signal proximally within the rectus femoris tendon measuring up to 2 cm in craniocaudal dimension with adjacent edema. Findings are consistent with partial tearing. Mild proximal patellar tendinosis. Subcutaneous edema with thin fluid signal anterior to the patella, consistent with mild prepatellar bursitis. ARTICULAR CARTILAGE/BONE: Patellofemoral Compartment: Inferior medial trochlear articular cartilage signal heterogeneity. Tiny marginal osteophytes. Medial Compartment: Articular cartilage signal heterogeneity and surface irregularity with tiny marginal osteophytes. Lateral Compartment: Normal. JOINT FLUID AND BURSAE: Small joint effusion. MR/MR knee LT wo con IMPRESSION: 1. Distal quadriceps tendinosis and tenosynovitis with focal undersurface partial tearing of the rectus femoris tendon measuring 2 cm in craniocaudal dimension. No full-thickness transverse tendon tear or tendon retraction. 2. Oblique inner margin/tibial articular surface tear of the medial meniscus posterior body and posterior horn with irregular tearing along the inner margin of the posterior root. 3. Mild fraying of the lateral meniscus posterior root. 4. Minimal patellofemoral and medial compartment arthrosis. Trace joint effusion.
== END 2022-04-14 07:58 | disposition home or self-care (01) ==
LOC: HO.MRI 07:57
PROVIDERS: Visit Provider Physician Assistant
DX: M25.462 Effusion, left knee (principal); S76.102A Unspecified injury of left quadriceps muscle, fascia and tendon, initial encounter; S86.812A Strain of other muscle(s) and tendon(s) at lower leg level, left leg, initial encounter
CPT/HCPCS: 73721

== ENCOUNTER → 2022-04-20 13:32 | Outpatient (BNVA) | payer OTHER, SELFPAY | PROVIDERS: Visit Provider Physician Assistant | DX: S83.207A Unspecified tear of unspecified meniscus, current injury, left knee, initial encounter (principal) | CPT/HCPCS: 99212 ==

== ENCOUNTER → 2022-05-16 08:43 | Outpatient (BNVA) | payer OTHER, SELFPAY | PROVIDERS: PCP Physician Assistant; Visit Provider Orthopaedic Surgery | DX: S83.242A Other tear of medial meniscus, current injury, left knee, initial encounter (principal) | CPT/HCPCS: 99212 ==

== ENCOUNTER 2022-05-24 12:46 | Day surgery (SDC) | payer OTHER, SELFPAY ==
[2022-05-19 16:00] VITALS: BMI 28.7
[2022-05-20 09:08] VITALS: BMI 28.7
[2022-05-24] VITALS (8 sets, daily range): BP systolic 83–153; BP diastolic 58–92; PULSE 57–64; RESP 14–16; TEMP 36.3–36.6; O2SAT 95–98
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
[2022-05-24] MEDS: Lactated Ringers 1,000 ML 50 ML IVCONT (13:39)
--- NOTE | 2022-05-24 15:15 | MHC.SHP ---
Pre-Procedural Eval Section A Date of Service: 05/24/22 The patient is an INPATIENT: No Changes since office visit: Yes Patient answered all questions; No Cold of Flu in the past 2 weeks, No New Medical Problems and No Changes in Medication The History & Physical has been completed within 30 days and I have reviewed it.: Yes Section B Chief Complaint: Unspecified tear of unspecified meniscus, current Allergies: Allergies Allergy/AdvReac Type Severity Reaction Status Date / Time venlafaxine [From Effexor] AdvReac Intermediate sweats Verified 05/24/22 12:54 Plan I have reviewed the history and physical and performed a pertinent physical examination on my patient. No changes have occurred unless specified.
[2022-05-24] MEDS: Acetaminophen 325 MG TABLET 650 MG PO (16:52)
--- NOTE | 2022-05-24 17:16 | PM.OP ---
Brief Operative Note Date of Service: 05/24/22 Pre-op diagnosis: Left knee MMT Post-op diagnosis: other (1) Left knee MMT 2) Left knee chondrocalcinosis) Procedure: Left knee with partial medial meniscectomy Surgeon: Arnulfo Lawler MD Anesthesia: GETA and local Was an Fitter Type Bar And Segment used for this Procedure?: No Estimated blood loss (mL): 0 Tourniquet time (min): 16 IV fluids (mL): 50 Pathology: none sent Condition: stable Disposition: PACU
--- NOTE | 2022-05-27 15:55 | W.PM.OPN ---
Operative Note Operative Note Date of Service: 05/24/22 Narrative: Date of Service: 05/24/22 Pre-op diagnosis: Left knee MMT Post-op diagnosis: other (1) Left knee MMT 2) Left knee chondrocalcinosis) Procedure: Left knee with partial medial meniscectomy Surgeon: Arnulfo Lawler MD Anesthesia: GETA and local Was an Securities Underwriter used for this Procedure?: No Estimated blood loss (mL): 0 Tourniquet time (min): 16 IV fluids (mL): 50 Pathology: none sent Condition: stable Disposition: PACU Procedure in detail: Patient was brought to the operating room placed supine on the arthroscopic table and prepped and draped in standard sterile fashion. A time-out was called to identify proper site proper procedure proper surgeon and IV antibiotics per weight were administered. I began by exsanguinating the limb and insufflating tourniquet to 300 mm Hg. Then made a standard anterolateral stab incision. The knee was insufflated with water and 30 degree arthroscope was placed. There was grade 1/2 fibrillations of the patella but overall suprapatellar pouch and the gutters were clean. I descended into the medial compartment where I made my medial portal under direct visualization. There was obvious of complex tear of the body and posterior horn of the medial meniscus. Root was intact and there was grade 1 changes with some scattered grade 2 changes throughout the medial compartment. There was chonrocalcinosis articularis involving the mensicus and scattered prortions of the MFC. I used a combination of biter shaver and cautery to remove unstable portions of the meniscus. Approximately 30% meniscal volume was removed. Once I was happy with this the ACL was examined and found to be intact and the lateral compartment also was without the need for intervention. I then removed all instrumentation and closed the portals with skin glue. 25 mL of 2% Marcaine with epinephrine was injected into the joint and the surrounding soft tissues. Patient was then placed in sterile dressing extubated brought recovery room stable condition. There were no known complications.
== END 2022-05-24 17:30 | disposition home or self-care (01) ==
LOC: HO.SSS 12:47
PROVIDERS: PCP Physician Assistant; Visit Provider Orthopaedic Surgery
PROC: (CPT 29870; principal; 2022-05-24 15:00)
DX: S83.232A Complex tear of medial meniscus, current injury, left knee, initial encounter (principal); M11.262 Other chondrocalcinosis, left knee; I12.9 Hypertensive chronic kidney disease with stage 1 through stage 4 chronic kidney disease, or unspecified chronic kidney disease; N18.9 Chronic kidney disease, unspecified; R00.2 Palpitations; Z79.899 Other long term (current) drug therapy; F41.1 Generalized anxiety disorder; F17.210 Nicotine dependence, cigarettes, uncomplicated
CPT/HCPCS: 29881; J0171; J0690; J1100; J2250; J2405; J2795; J3010

== ENCOUNTER 2022-07-12 10:00 | Outpatient (RCR) | payer OTHER, SELFPAY ==
[2022-05-31 10:46] VITALS: BP 131/85; PULSE 65; O2SAT 99
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
--- NOTE | 2022-07-13 14:47 | MHC.PT.DC ---
[facility] [place] Office [place] Office [place] Office [address] Brielle Bo [address] [phone] F: [phone] F: [phone] F: [phone] F: [phone] Physical Therapy Discharge Report Diagnosis: Left knee with partial medial meniscectomy 05/24/22 Date of Surgery: 05/24/22 Date of Evaluation: 05/31/22 Date of Discharge: 07/12/22 Treatments to Date: 10 Cancellations to Date: 1 No Shows to Date: 2 Discharge Status: Improved Function Independent with HEP Recommend MD Follow-up Discharge Summary: Pt HAD MADE SIGNIF PROGRESS IN PT DURING HIS POST-OP COURSE AND HE HAD MET THE GOALS SET FOR HIM IN PT. HOWEVER, HE ARRIVED TO PT TODAY NOTING HE TWISTED HIS LEFT ANKLE ON 07/11/22 AND WAS UNABLE TO PERFORM HIS REGULAR LEVEL OF EXER OR FUNCTIONAL MOBILITY. AROM IN LEFT KNEE 0* TO 125*; AT PREVIOUS PT APPT : LEFT SLS x 10 SEC, PROPER SQUAT MECHANICS AND RANGE, EFFICIENT GAIT MECHANICS W/O ASST DEVICE, IMPROVED SPADI SCORE, AND STRENGTH WAS 5/5 IN LEFT KNEE EXT AND FLEX. Pt IS D/C'D THIS DATE W A THOROUGH AND PROGRESSIVE HEP. WE EDUC AND RECOMMENDED Pt F/U WITH HIS MD RE THIS RECENT AND ACUTE LEFT ANKLE INJURY IF SXS PERSIST AND CONTINUE TO IMPACT HIS ADLs/ FUNCTIONAL MOBILITY. Electronically signed by: Tessy White,PT Please sign and return to therapist. Thank you for your referral.
== END 2022-07-13 14:48 | disposition home or self-care (01) ==
LOC: HO.PT 10:00
PROVIDERS: PCP Physician Assistant; Visit Provider Orthopaedic Surgery
DX: M70.40 Prepatellar bursitis, unspecified knee (principal)
CPT/HCPCS: 97110; 97140; 97162; 97530

== ENCOUNTER 2022-09-28 14:48 | Emergency (ER) | payer OTHER, SELFPAY | END 2022-09-28 15:20 | disposition left against medical advice (07) | LOC: HO.ED 15:07 | PROVIDERS: Emergency Provider Emergency Medicine | DX: Z77.21 Contact with and (suspected) exposure to potentially hazardous body fluids (principal) ==

== ENCOUNTER 2022-09-29 07:01 | Emergency (ER) | payer OTHER, SELFPAY ==
[2022-09-29 07:14] VITALS: BP 173/100; PULSE 65; RESP 18; TEMP 36.1; O2SAT 98; BMI 29.4
--- NOTE | 2022-09-29 07:47 | PC.NURSE ---
PT IS UNSURE OF LAST TETNUS
[2022-09-29 08:51] LABS: MANUAL DIFF FLAG NO
[2022-09-29 08:52] LABS: Basophils Percent Auto 0.5 % (0-2); Eosinophils Absolute Auto 0.1 X10*3/uL (0.0-0.4); Eosinophils Percent Auto 1.6 % (0-4); Hemoglobin 17.6 g/dl (14.0-18.0); Imm Gran Abs Auto 0.02 X10*3/uL (0.00-0.03); Imm Gran Pct Auto 0.3 % (0.0-0.4); Lymphocytes Absolute Auto 2.2 X10*3/uL (1.2-4.9); Lymphocytes Percent Auto 35.9 % (20-40); Mean Corpuscular HGB Conc 33.8 g/dl (31.0-36.0); Mean Corpuscular Volume 94.5 fL (80.0-98.0); Mean Platelet Volume 10.6 fL (9.4-12.4); Monocytes Absolute Auto 0.5 X10*3/uL (0.1-1.2); Monocytes Percent Auto 8.5 % (2-11); Neutrophils Absolute Auto 3.3 x10*3/uL (2.0-8.3); Neutrophils Percent Auto 53.2 % (45-73); Platelet Count 175 X10*3/uL (160-400); Red Cell Distribution Width 13.1 % (11.0-16.0); White Blood Count 6.1 X10*3/uL (4.8-10.8)
[2022-09-29 09:07] LABS: Alanine Aminotransferase 47 U/L (0-40); Albumin Level 4.4 g/dL (3.5-5.0); Alkaline Phosphatase 64 U/L (39-117); Anion Gap 13 (12-20); Aspartate Amino Transferase 37 U/L (5-37); Bilirubin Total 0.8 mg/dL (0.0-1.0); Blood Urea Nitrogen 20 mg/dL (9-16); Calcium 9.7 mg/dL (8.4-10.2); Carbon Dioxide 28 mmol/L (22-29); Chloride 102 mmol/L (96-108); Creatinine Clr Calc Pharmacy 67.4; Estimated Glomerular Filt Rate 56; Glucose Random 119 mg/dL (60-115); Potassium 4.8 mmol/L (3.3-5.1); Sodium 138 mmol/L (135-145); Total Protein 7.2 g/dL (6.5-8.0)
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
[2022-09-30 09:25] LABS: HBS Num1 80.54 mIU/mL (0-7.99); HBc Num1 0.12 S/CO (0.00-0.79); HBsAGNum1 0.35 S/CO (0.00-0.99); HIV AB/AG Nonreactive (Nonreactive); HIV Num 1 0.06 S/CO (0.00-0.99); Hepatitis B Core Antibody Nonreactive (Nonreactive); Hepatitis B Surface Antigen Negative (Negative); ~HepC Num1 0.06 S/CO (0.00-0.79); ~Hepatitis B Surface Antibody REACTIVE (Nonreactive); ~Hepatitis C Antibody Nonreactive (Nonreactive)
== END 2022-09-29 10:11 | disposition home or self-care (01) ==
PROVIDERS: Emergency Provider Emergency Medicine Emergency Medical Services; PCP Physician Assistant
DX: S61.230A Puncture wound without foreign body of right index finger without damage to nail, initial encounter (principal); Y28.9XXA Contact with unspecified sharp object, undetermined intent, initial encounter; Y93.9 Activity, unspecified; Y92.9 Unspecified place or not applicable; Y99.0 Civilian activity done for income or pay; Z79.899 Other long term (current) drug therapy; Z20.828 Contact with and (suspected) exposure to other viral communicable diseases
CPT/HCPCS: 36415; 80053; 85025; 86704; 86706; 86803; 87340; 87389; 99282; 99283

== ENCOUNTER → 2022-10-24 12:31 | Outpatient (BNVA) | payer OTHER, SELFPAY | PROVIDERS: PCP Physician Assistant; Visit Provider Internal Medicine | DX: I47.1 Supraventricular tachycardia (principal) | CPT/HCPCS: 93005; 99212 ==

== ENCOUNTER → 2022-10-25 10:43 | Outpatient (REF) | payer OTHER, SELFPAY ==
--- NOTE | 2022-10-25 10:46 | HM_ITS ---
* Total monitoring time 4 days and 13 hours. * Underlying rhythm is sinus. Average ventricular rate 70/Min. Range 45 to 144/Min. * Occasional PACs. [place] of 0.7%. Short runs noted. Longest 23 beats. Fastest 202/Min. * No significant pauses or AV blocks. * Palpitations could be from supraventricular ectopy, but patient also documents palpitations in diary when he is in sinus rhythm. MTDD
== END ==
LOC: HO.CARD 10:43
PROVIDERS: Visit Provider Internal Medicine
DX: I49.1 Atrial premature depolarization (principal); I49.3 Ventricular premature depolarization
CPT/HCPCS: 93242

== ENCOUNTER 2022-11-29 06:47 | Outpatient (REF) | payer OTHER, SELFPAY ==
[2022-11-29 07:46] LABS: Hematocrit 48.9 % (42.0-52.0); Hemoglobin 16.5 g/dl (14.0-18.0); Mean Corpuscular HGB Conc 33.7 g/dl (31.0-36.0); Platelet Count 182 X10*3/uL (160-400); Red Blood Count 5.15 X10*6/uL (4.60-5.80); Red Cell Distribution Width 13.2 % (11.0-16.0); White Blood Count 6.5 X10*3/uL (4.8-10.8)
[2022-11-29 08:16] LABS: Alanine Aminotransferase 35 U/L (0-40); Albumin Level 4.3 g/dL (3.5-5.0); Alkaline Phosphatase 57 U/L (39-117); Anion Gap 15 (12-20); Aspartate Amino Transferase 30 U/L (5-37); Bilirubin Total 1.1 mg/dL (0.0-1.0); Blood Urea Nitrogen 24 mg/dL (9-16); Calcium 9.1 mg/dL (8.4-10.2); Carbon Dioxide 24 mmol/L (22-29); Chloride 105 mmol/L (96-108); Cholesterol 240 mg/dL; Estimated Glomerular Filt Rate > 60; Glucose Fasting 118 mg/dL (60-99); HDL Cholesterol 32 mg/dL; LDL Cholesterol Calculated 172 mg/dl; Potassium 4.4 mmol/L (3.3-5.1); Sodium 140 mmol/L (135-145); Total Protein 6.9 g/dL (6.5-8.0); Triglycerides 180 mg/dL
[2022-11-29 08:32] LABS: TSH reflex Free T4 1.06 uIU/mL (0.32-4.0)
[2022-11-29 08:52] LABS: Creatinine Urine 219.25 mg/dL; Microalbum/Creatinine Ratio Ur 7.7 ug/mg cr
== END 2022-11-29 06:48 | disposition home or self-care (01) ==
LOC: HO.LAB 06:47
PROVIDERS: PCP Physician Assistant; Visit Provider Physician Assistant
DX: I10 Essential (primary) hypertension (principal)
CPT/HCPCS: 36415; 80053; 80061; 82043; 84443; 85027

== ENCOUNTER → 2022-12-16 10:50 | Outpatient (BNVA) | payer OTHER, SELFPAY | PROVIDERS: PCP Physician Assistant; Visit Provider Internal Medicine Gastroenterology | DX: Z13.89 Encounter for screening for other disorder (principal) ==

== ENCOUNTER 2023-01-02 09:45 | Outpatient (REF) | payer OTHER, SELFPAY ==
--- NOTE | ~2023-01-02 | XR_ITS ---
EXAMINATION: XR LUMBOSACRAL SPINE CLINICAL INFORMATION: Lower back pain. COMPARISON: Radiographs dated 02/08/2021. TECHNIQUE: AP and lateral views of the lumbar spine and lateral view of the lumbosacral junction. FINDINGS: There is bony demineralization. Vertebral body heights and alignment are normal. The disc spaces are well-maintained. No acute fracture or spondylolisthesis is seen. There is multi-level marked lower thoracic and moderate lumbar spondylosis. There is marked facet arthropathy at L4-L5 and L5-S1. The paravertebral soft tissues are unremarkable. XR/XR lumbar spine 2-3V IMPRESSION: 1. The lumbar disc spaces are well-maintained. 2. There is multi-level thoracolumbar spondylosis. 3. There is marked facet arthropathy L4-L5 and L5-S1.
--- NOTE | ~2023-01-02 | US_ITS ---
EXAMINATION: US ABDOMEN LIMITED CLINICAL INFORMATION: Right upper quadrant pain. Rule out gallstone. COMPARISON: CT abdomen and pelvis 06/30/2018. TECHNIQUE: Real-time imaging of the right upper quadrant abdominal viscera. FINDINGS: PANCREAS: Visualized portions of the pancreas are unremarkable. The pancreatic tail is obscured by bowel gas. LIVER: The liver is normal in size. The liver contour is normal. There is diffuse increased liver parenchymal echogenicity, consistent with hepatic steatosis, with focal fatty sparing. No focal hepatic lesion. There is no intrahepatic biliary duct dilatation seen. GALLBLADDER: The gallbladder is physiologically distended without evidence of stones, sludge, polyps, or pericholecystic fluid. Focal wall thickening of the gallbladder fundus possibly reflective of fundal adenomyomatosis, however recommend confirmation with MR. COMMON BILE DUCT: Normal in caliber measuring 0.4 cm in diameter. RIGHT KIDNEY: Normal. No hydronephrosis. No renal calculi or focal parenchymal lesions. The kidney measures 11.3 cm in maximum dimension. FREE FLUID: None. US/US abdomen limited IMPRESSION: 1. No cholelithiasis or evidence of acute cholecystitis. 2. Focal wall thickening of the gallbladder fundus possibly reflective of fundal adenomyomatosis, however recommend confirmation with/MRCP abdomen with and without contrast. 3. Hepatic steatosis.
--- NOTE | ~2023-01-02 | XR_ITS ---
EXAMINATION: XR SHOULDER, RIGHT CLINICAL INFORMATION: Disorder of right shoulder synovium and tendon. COMPARISON: None available. TECHNIQUE: AP external rotation, Grashey, scapular Y, and axillary views of the right shoulder. FINDINGS: Bony alignment and mineralization are normal. The glenohumeral joint is intact and shows mild osteoarthritic change. The acromioclavicular joint is widened to 9 mm, and the coracoclavicular interval is widened to 1.4 cm. There is a small distal acromial osteophyte. No soft tissue calcification or body is seen. There is no right pneumothorax. XR/XR shoulder RT min 2V IMPRESSION: 1. Findings are consistent with mild right acromioclavicular and coracoclavicular separation injuries of indeterminate chronicity. 2. There is mild osteoarthritic change of the right glenohumeral joint.
== END 2023-01-02 09:46 | disposition home or self-care (01) ==
LOC: HO.US 09:45
PROVIDERS: PCP Physician Assistant; Visit Provider Physician Assistant
DX: R10.11 Right upper quadrant pain (principal); M54.50 Low back pain, unspecified; M67.911 Unspecified disorder of synovium and tendon, right shoulder
CPT/HCPCS: 72100; 73030; 76705

== ENCOUNTER 2023-02-16 09:00 | Outpatient (REF) | payer OTHER, SELFPAY ==
--- NOTE | ~2023-02-16 | MR_ITS ---
EXAMINATION: MR ABDOMEN WITHOUT AND WITH CONTRAST CLINICAL INFORMATION: Benign neoplasm of extrahepatic bile ducts pain and nausea. COMPARISON: Previous abdominal ultrasound December [address] of the abdomen and pelvis June 2018 TECHNIQUE: MR abdomen was performed without and with use of 10 mL intravenous gadolinium contrast. Postcontrast images are performed in multiphase dynamic sequences. Imaging was performed in 3 planes. FINDINGS: LUNG BASES: The visualized lung bases are unremarkable. LIVER, GALLBLADDER, AND BILIARY TREE: The liver is normal in size and shape. There is fatty infiltration of the liver. There is abnormal signal seen in the fundus of the gallbladder. This is not well-visualized on T1-weighted sequences. This is a heterogeneous in signal on T2 weighted and probably represents focal adenomyomatosis of the gallbladder wall. The intra and extrahepatic bile ducts are normal in caliber. The common bile duct measures 3 mm. No common bile duct stone is seen. PANCREAS: Unremarkable. The main pancreatic duct is normal. SPLEEN: Normal. ADRENAL GLANDS: Normal. KIDNEYS AND URETERS: 1.2 x 2.2 cm lobulated lesion exophytic to the posterior upper pole of the right kidney in AP and transverse dimension and 2.3 cm in longitudinal dimension. This is heterogeneous in signal on T1 and T2-weighted sequences. This demonstrates enhancement following contrast suggestive of enhancing renal mass. GASTROINTESTINAL TRACT: No bowel obstruction. Diverticulosis of the colon. No ascites or fluid collection. ABDOMINAL WALL: Umbilical hernia containing fat. LYMPH NODES: No lymphadenopathy. VASCULAR: Unremarkable. OSSEOUS STRUCTURES: Marrow signal normal. Degenerative disc disease. MR/MR abdomen wo/w con IMPRESSION: Probable focal adenomyomatosis of the fundus of the gallbladder. Fatty infiltration of the liver. 1.2 x 2.2 x 2.3 cm heterogeneous enhancing lesion exophytic to the posterior upper pole the right kidney suggestive of a renal mass. Urology consultation recommended. Diverticulosis of the colon. Findings will be communicated by the [facility] work flow slate picker.
== END 2023-02-16 09:01 | disposition home or self-care (01) ==
LOC: HO.MRI 09:00
PROVIDERS: PCP Physician Assistant; Visit Provider Physician Assistant
DX: D13.5 Benign neoplasm of extrahepatic bile ducts (principal); R10.11 Right upper quadrant pain
CPT/HCPCS: 74183; A9585

== ENCOUNTER 2023-03-16 08:21 | Outpatient (REF) | payer OTHER, SELFPAY ==
[2023-03-16 16:48] LABS: Urine Cytology See Pathology rpt
== END 2023-03-16 08:22 | disposition home or self-care (01) ==
LOC: HO.LAB 08:21
PROVIDERS: PCP Physician Assistant; Visit Provider Urology
DX: N28.89 Other specified disorders of kidney and ureter (principal); Z79.899 Other long term (current) drug therapy
CPT/HCPCS: 88112

== ENCOUNTER 2023-03-16 08:21 | Outpatient (AMB) | payer OTHER, SELFPAY ==
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
== END 2023-03-16 09:10 | disposition home or self-care (01) ==
LOC: HO.HUSH 08:21
PROVIDERS: PCP Physician Assistant; Visit Provider Urology
DX: N28.89 Other specified disorders of kidney and ureter (principal)
CPT/HCPCS: 99204

== ENCOUNTER 2023-03-21 11:37 | Outpatient (REF) | payer OTHER, SELFPAY ==
--- NOTE | ~2023-03-21 | XR_ITS ---
EXAMINATION: XR FOOT, RIGHT CLINICAL INFORMATION: Right foot pain without injury COMPARISON: None available. TECHNIQUE: AP, lateral, and oblique views of the right foot. FINDINGS: There is no evidence of acute fracture or dislocation of the right foot. Right foot joint spaces are maintained. There is some mild spurring with calcification about the 1st metatarsophalangeal joint. There is soft tissue swelling seen overlying the metatarsophalangeal joints. 2 mm calcification seen along the lateral base of the 4th proximal phalanx likely represents an old avulsion injury. No radiopaque foreign body. Small plantar calcaneal spur. XR/XR foot RT 2V IMPRESSION: 1. Mild degenerative change of the 1st metatarsophalangeal joint. 2. Small plantar calcaneal spur.
== END 2023-03-21 11:38 | disposition home or self-care (01) ==
LOC: HO.XRAY 11:37
PROVIDERS: Visit Provider Nurse Practitioner Family
DX: M79.671 Pain in right foot (principal)
CPT/HCPCS: 73620

== ENCOUNTER 2023-04-03 08:25 | Outpatient (AMB) | payer OTHER, SELFPAY ==
[2023-04-03 08:33] VITALS: BP 132/72; PULSE 61; O2SAT 96; BMI 32.0
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
== END 2023-04-03 09:09 | disposition home or self-care (01) ==
PROVIDERS: PCP Physician Assistant; Visit Provider Physician Assistant
DX: I10 Essential (primary) hypertension (principal); F17.210 Nicotine dependence, cigarettes, uncomplicated; F41.1 Generalized anxiety disorder; Z68.32 Body mass index [BMI] 32.0-32.9, adult; E78.2 Mixed hyperlipidemia; M79.671 Pain in right foot; F10.10 Alcohol abuse, uncomplicated; E66.09 Other obesity due to excess calories; M67.911 Unspecified disorder of synovium and tendon, right shoulder; N28.89 Other specified disorders of kidney and ureter
CPT/HCPCS: 99214

== ENCOUNTER 2023-04-06 08:48 | Day surgery (SDC) | payer OTHER, MEDICAID, SELFPAY ==
[2023-04-06] VITALS (9 sets, daily range): BP systolic 123–146; BP diastolic 63–84; PULSE 52–78; RESP 16–20; TEMP 36.1–36.6; O2SAT 97–99; BMI 30.6
--- NOTE | ~2023-04-06 | CT_ITS ---
History: 63-year-old male with posterior right upper pole renal mass suspicious for renal cell carcinoma Procedure performed: 1. CT-guided core biopsy of right renal mass. 2. CT-guided cryoablation of right renal mass [employer]: Mary Jo Clifton M.D. Anesthesia: IV MAC sedation. See anesthesiology note. Specimen: Single 18-gauge core specimen Drain: None Estimated blood loss: Minimal Complications: None Procedure in detail: Informed and written consent was obtained. The patient was positioned prone on the CT examination table. Preliminary CT scan with contrast demonstrated an enhancing mass at the posterior superior cortex of the right kidney. The appropriate sites for both the biopsy as well as a subsequent ablation were marked on the skin. The overlying skin was prepped and draped. 1% lidocaine was injected subcutaneously at the biopsy site as well as flanking this on either side for the two planned locations for the cryoablation needles. Local anesthesia was extended to the deep soft tissues. Three small incisions were made in the skin with a #11 blade. Through the central incision and under progressive CT guidance, a 17-gauge coaxial needle was advanced to the edge of the mass. Through this, a single 18-gauge core specimen of the mass was obtained and placed directly in formalin. The tissue was deemed to be adequate. The 17-gauge coaxial needle was then removed. Measurements had been obtained on the preprocedural MRI. Based upon this, we selected two Icepearl cryoablation needles. Individually, these produce a lethal -20 degree sphere that is 3.2 cm in length and 2.7 cm in width. The needles were first tested on the back table and confirmed to be functional. Under CT guidance, the two needles spaced roughly 1 cm apart from one another were advanced directly into the mass. The needles were activated simultaneously producing an ablation zone of 3.4 cm in depth x 4.1 cm in transverse diameter. Our ablation consisted of an initial 10 minute freeze followed by a 5 minute passive thaw followed by a second 10 minute freeze cycle followed by a 3 minute active thaw cycle. We monitored the ice ball production with follow-up CT examinations. We felt that we had an excellent ablative zone that peripherally encompassed the mass with surgical margins. The needles were removed after an appropriate thaw cycle. Follow-up CT showed no evidence of hemorrhage nor other complication. A sterile dressing was applied at the needle access sites. Summary: Successful CT-guided biopsy and cryoablation of a right renal mass.
[2023-04-06 09:51] LABS: MANUAL DIFF FLAG NO
[2023-04-06 09:56] LABS: Basophils Absolute Auto 0.1 X10*3/uL (0.0-0.2); Eosinophils Absolute Auto 0.1 X10*3/uL (0.0-0.4); Eosinophils Percent Auto 1.9 % (0-4); Hemoglobin 16.4 g/dl (14.0-18.0); Imm Gran Abs Auto 0.04 X10*3/uL (0.00-0.03); Imm Gran Pct Auto 0.6 % (0.0-0.4); Lymphocytes Absolute Auto 1.8 X10*3/uL (1.2-4.9); Lymphocytes Percent Auto 28.9 % (20-40); Mean Corpuscular HGB Conc 34.2 g/dl (31.0-36.0); Mean Corpuscular Hemoglobin 32.6 pg (27.0-33.0); Mean Corpuscular Volume 95.4 fL (80.0-98.0); Monocytes Absolute Auto 0.5 X10*3/uL (0.1-1.2); Monocytes Percent Auto 8.5 % (2-11); Neutrophils Absolute Auto 3.7 x10*3/uL (2.0-8.3); Neutrophils Percent Auto 59.1 % (45-73); Platelet Count 183 X10*3/uL (160-400); Red Blood Count 5.03 X10*6/uL (4.60-5.80); White Blood Count 6.2 X10*3/uL (4.8-10.8)
[2023-04-06 10:02] LABS: INTERNATIONAL NORM RATIO 0.9 (0.9-1.1); Prothrombin Time 10.8 SEC (10.0-13.1)
[2023-04-06 10:05] LABS: Partial Thromboplastin Time 34.5 SEC (26.0-36.4)
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
[2023-04-06 10:41] LABS: Anion Gap 13 (12-20); Blood Urea Nitrogen 22 mg/dL (9-16); Carbon Dioxide 22 mmol/L (22-29); Chloride 106 mmol/L (96-108); Creatinine Clr Calc Pharmacy 76.5; Estimated Glomerular Filt Rate > 60; Potassium 4.3 mmol/L (3.3-5.1); Sodium 137 mmol/L (135-145)
[2023-04-06] MEDS: Acetaminophen 325 MG TABLET 650 MG PO (13:43)
[2023-04-06] MEDS: oxyCODONE HCl Immed Release 5 MG TABLET PO (13:55)
== END 2023-04-06 15:45 | disposition home or self-care (01) ==
PROVIDERS: Radiology Diagnostic Radiology; PCP Physician Assistant; Visit Provider Radiology Diagnostic Radiology
DX: N28.89 Other specified disorders of kidney and ureter (principal); I12.9 Hypertensive chronic kidney disease with stage 1 through stage 4 chronic kidney disease, or unspecified chronic kidney disease; F17.211 Nicotine dependence, cigarettes, in remission; N18.9 Chronic kidney disease, unspecified; F41.1 Generalized anxiety disorder; K76.0 Fatty (change of) liver, not elsewhere classified; K57.30 Diverticulosis of large intestine without perforation or abscess without bleeding; K42.9 Umbilical hernia without obstruction or gangrene; Z79.899 Other long term (current) drug therapy; Z88.1 Allergy status to other antibiotic agents
CPT/HCPCS: 36415; 50593; 77013; 80051; 82565; 84520; 85025; 85610; 85730; 88305; C2618; J0171; J0690; J2250; J3010

== ENCOUNTER → 2023-04-06 11:15 | Outpatient (BNV) | payer OTHER, SELFPAY | PROVIDERS: PCP Physician Assistant; Visit Provider Radiology Vascular & Interventional Radiology | DX: N28.89 Other specified disorders of kidney and ureter (principal) | CPT/HCPCS: 50593 ==

== ENCOUNTER 2023-04-11 14:40 | Outpatient (REF) | payer OTHER, MEDICAID, SELFPAY ==
[2023-04-11 16:00] LABS: Appearance Urine Clear; Color Urine Yellow; Glucose Urine UA Negative (Negative); Leukocyte Esterase Urine Trace (Negative); Nitrite Urine Negative (Negative); Specific Gravity - Urine 1.025 (1.005-1.025); UMIC TRIGGER UA YES; Urine Blood Large (3+) (Negative); Urine Ketones Negative (Negative); Urine Protein 30 (1+) mg/dL (Neg-Trace)
[2023-04-11 16:10] LABS: Bacteria Urine None Seen (None Seen); Hyaline Casts Urine 0-2 /LPF (0-2); Squamous Epithelial Cell Urine 0-2 /HPF (0-2); WBC Urine 0-5 /HPF (0-5)
== END 2023-04-11 14:41 | disposition home or self-care (01) ==
LOC: HO.LAB 14:40
PROVIDERS: PCP Physician Assistant; Visit Provider Radiology Vascular & Interventional Radiology
DX: N15.1 Renal and perinephric abscess (principal)
CPT/HCPCS: 81001; 87086

== ENCOUNTER → 2023-06-19 13:04 | Outpatient (REF) | payer OTHER, SELFPAY ==
--- NOTE | 2023-06-19 13:18 | HM_ITS ---
Conclusion: 1. Patient was monitored for total period of 7 days 2. Baseline was normal sinus with average heart of 66 beats per minute 3. No significant pauses noted 4. Occasional PACs and PVCs noted with frequent short runs of supraventricular arrhythmias with fastest at 185 beats per minute and longest of 8 beats 5. Patient reported 13 events including skipped heartbeats and palpitations some of which correlated with artifact data others with isolated PVCs MTDD
[2023-06-19 14:16] LABS: Blood Urea Nitrogen 23 mg/dL (9-16); Estimated Glomerular Filt Rate 59
[2023-06-19 14:17] LABS: Alanine Aminotransferase 67 U/L (0-40); Albumin Level 4.4 g/dL (3.5-5.0); Alkaline Phosphatase 64 U/L (39-117); Anion Gap 13 (12-20); Aspartate Amino Transferase 48 U/L (5-37); Bilirubin Total 0.8 mg/dL (0.0-1.0); Blood Urea Nitrogen 24 mg/dL (9-16); Calcium 9.3 mg/dL (8.4-10.2); Carbon Dioxide 24 mmol/L (22-29); Chloride 103 mmol/L (96-108); Cholesterol 226 mg/dL (<200); Estimated Glomerular Filt Rate 60; Glucose Fasting 97 mg/dL (60-99); HDL Cholesterol 30 mg/dL (>40); LDL Cholesterol Calculated 154 mg/dL (<100); Potassium 3.6 mmol/L (3.3-5.1); Sodium 136 mmol/L (135-145); Total Protein 7.8 g/dL (6.5-8.0); Triglycerides 213 mg/dL (<150)
[2023-06-19 14:24] LABS: Estimated Average Glucose 111 mg/dL; Hemoglobin A1c % 5.5 % (<6.0)
== END ==
LOC: HO.CARD 13:04
PROVIDERS: Absent Provider Radiology Vascular & Interventional Radiology; PCP Physician Assistant; Visit Provider Nurse Practitioner Family
DX: I47.1 Supraventricular tachycardia (principal); R00.2 Palpitations; R73.01 Impaired fasting glucose; E78.2 Mixed hyperlipidemia; R79.89 Other specified abnormal findings of blood chemistry; R94.4 Abnormal results of kidney function studies
CPT/HCPCS: 36415; 80053; 80061; 82565; 83036; 84520; 93242

== ENCOUNTER 2023-07-12 14:10 | Outpatient (AMB) | payer OTHER, SELFPAY ==
[2023-07-12 14:26] VITALS: BP 132/74; PULSE 64; BMI 31.8
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
== END 2023-07-12 14:53 | disposition home or self-care (01) ==
PROVIDERS: PCP Physician Assistant; Visit Provider Internal Medicine
DX: I47.1 Supraventricular tachycardia (principal); I49.1 Atrial premature depolarization; I49.3 Ventricular premature depolarization; I10 Essential (primary) hypertension
CPT/HCPCS: 93010; 99214

== ENCOUNTER → 2023-07-12 14:10 | Outpatient (BNVA) | payer OTHER, SELFPAY | PROVIDERS: PCP Physician Assistant; Visit Provider Internal Medicine | DX: I49.1 Atrial premature depolarization (principal); I49.3 Ventricular premature depolarization; I10 Essential (primary) hypertension; I47.10 Supraventricular tachycardia, unspecified | CPT/HCPCS: 93005; 99212 ==

== ENCOUNTER 2023-08-10 08:33 | Outpatient (AMB) | payer OTHER, SELFPAY ==
[2023-08-10 08:41] VITALS: BP 134/74; PULSE 58; O2SAT 98; BMI 32.0
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
== END 2023-08-10 10:08 | disposition home or self-care (01) ==
PROVIDERS: PCP Physician Assistant; Visit Provider Physician Assistant
DX: I10 Essential (primary) hypertension (principal); E78.2 Mixed hyperlipidemia; M79.671 Pain in right foot; F41.1 Generalized anxiety disorder; N28.89 Other specified disorders of kidney and ureter; E66.09 Other obesity due to excess calories; Z68.32 Body mass index [BMI] 32.0-32.9, adult; I49.3 Ventricular premature depolarization; M79.672 Pain in left foot
CPT/HCPCS: 99214

== ENCOUNTER 2023-08-21 13:34 | Outpatient (AMB) | payer OTHER, SELFPAY ==
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
[2023-08-21 13:42] VITALS: BP 145/85; PULSE 60; BMI 31.8
== END 2023-08-21 14:24 | disposition home or self-care (01) ==
PROVIDERS: PCP Physician Assistant; Visit Provider Internal Medicine Gastroenterology
DX: K21.9 Gastro-esophageal reflux disease without esophagitis (principal)
CPT/HCPCS: 99213

== ENCOUNTER → 2023-08-21 13:34 | Outpatient (BNVA) | payer OTHER, SELFPAY | PROVIDERS: PCP Physician Assistant; Visit Provider Internal Medicine Gastroenterology | DX: K21.9 Gastro-esophageal reflux disease without esophagitis (principal); R00.2 Palpitations | CPT/HCPCS: 99212 ==

== ENCOUNTER → 2023-08-24 08:51 | Outpatient (REF) | payer OTHER, SELFPAY | LOC: HO.SL 08:51 | PROVIDERS: PCP Physician Assistant; Visit Provider Internal Medicine | DX: G47.33 Obstructive sleep apnea (adult) (pediatric) (principal) | CPT/HCPCS: 95806 ==

== ENCOUNTER → 2023-08-24 09:08 | Outpatient (BNV) | payer OTHER, SELFPAY | PROVIDERS: PCP Physician Assistant; Visit Provider Internal Medicine | DX: G47.33 Obstructive sleep apnea (adult) (pediatric) (principal) | CPT/HCPCS: 95806 ==

== ENCOUNTER 2023-10-18 10:47 | Outpatient (AMB) | payer OTHER, SELFPAY ==
[2023-10-18 10:49] VITALS: BP 148/102; PULSE 56; O2SAT 97; BMI 31.7
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
== END 2023-10-18 11:45 | disposition home or self-care (01) ==
PROVIDERS: PCP Physician Assistant; Visit Provider Physician Assistant
DX: S76.312A Strain of muscle, fascia and tendon of the posterior muscle group at thigh level, left thigh, initial encounter (principal); K57.92 Diverticulitis of intestine, part unspecified, without perforation or abscess without bleeding
CPT/HCPCS: 99214

== ENCOUNTER 2023-10-18 11:53 | Outpatient (REF) | payer OTHER, SELFPAY ==
[2023-10-18 12:57] LABS: Urine Cytology See Pathology rpt
[2023-10-18 13:03] LABS: Appearance Urine Clear; Color Urine Yellow; Glucose Urine UA Negative (Negative); Leukocyte Esterase Urine Negative (Negative); Nitrite Urine Negative (Negative); PH 5.5 (5.0-9.0); Specific Gravity - Urine 1.015 (1.005-1.025); Urine Blood Negative (Negative); Urine Ketones Negative (Negative); Urine Protein Negative (Neg-Trace)
== END 2023-10-18 11:54 | disposition home or self-care (01) ==
LOC: HO.LAB 11:53
PROVIDERS: PCP Physician Assistant; Visit Provider Physician Assistant
DX: N28.89 Other specified disorders of kidney and ureter (principal); R30.0 Dysuria
CPT/HCPCS: 81003; 88112

== ENCOUNTER 2023-10-19 10:00 | Outpatient (AMB) | payer OTHER, SELFPAY ==
[2023-10-19 10:16] VITALS: BMI 32.0
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
[2023-10-31 13:47] VITALS: BMI 32.0
== END 2023-10-19 10:52 | disposition home or self-care (01) ==
PROVIDERS: PCP Physician Assistant; Visit Provider Dietitian, Registered
DX: K75.81 Nonalcoholic steatohepatitis (NASH) (principal)

== ENCOUNTER → 2023-10-19 10:00 | Outpatient (BNVA) | payer OTHER, SELFPAY | PROVIDERS: PCP Physician Assistant; Visit Provider Dietitian, Registered | DX: K75.81 Nonalcoholic steatohepatitis (NASH) (principal) | CPT/HCPCS: 97802 ==

== ENCOUNTER 2023-11-15 07:16 | Day surgery (SDC) | payer OTHER, SELFPAY ==
[2023-11-10 14:01] VITALS: BMI 31.7
[2023-11-15 08:05] VITALS: BMI 31.8; BMI 32.4
[2023-11-15 08:08] VITALS: BP 160/106; PULSE 51; RESP 18; TEMP 36.8; O2SAT 98
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
[2023-11-15] MEDS: Lactated Ringers 1,000 ML 50 ML IVCONT (08:45)
--- NOTE | 2023-11-15 09:13 | W.PM.OPN ---
Operative Note Operative Note Date of Service: 11/15/23 Narrative: Procedure Description: EGD Indication: hx of esophagitis Anesthesia: MAC FLEXIBLE TRANSORAL UPPER GASTROINTESTINAL ENDOSCOPY UPPER ENDOSCOPY Consent: Indications for the procedure and potential complications of bleeding, perforation, reaction to medications and missed diagnosis were discussed with the patient and informed consent was obtained. Instrument: Olympus GIF H 190 J mid size upper endoscope Monitoring: Vital signs and clinical assessment, continuous EKG monitoring, Pulse oximetry, Carbon Dioxide monitoring and blood pressure monitoring were done throughout the procedure. Procedure: The patient was placed in the left lateral decubitis position and pre-procedure medications were administered and a bite block was placed. The endoscope was inserted into the mouth and advanced under direct vision to the third part of duodenum. A careful inspection was made as the upper endoscope was withdrawn including a retroflexed examination of the proximal stomach; Findings and interventions are described below. Findings: Larynx:normal Esophagus: GE junction at 36? cm, diaphragm hiatus at 38 cm, 2 cm sliding hiatal hernia noted, moderate erosive esophagitis, LA grade B with short linear streaks noted, bx taken, also non obstructive schatzki ring noted. The LES was lax as before. Bx also taken from distal and proximal esophagus Stomach: Patchy gastric erythema. Biopsies were obtained. Grade 2 flap valve on retroflexed examination of the cardia. Duodenum: normal Intervention: Biopsies as noted above Impression/Findings: schatzki ring erosive esophagitis gastritis hiatal hernia PLAN: try to get back on PPI, and repeat EGD at some point when he is able to at least take PPI for 3 months to r/o underlying barretts reflux precautions
[2023-11-15 09:23] VITALS: BP 111/52; PULSE 52; RESP 16; TEMP 36.1; O2SAT 95
[2023-11-15 09:38] VITALS: BP 116/70; PULSE 59; RESP 15; O2SAT 97
[2023-11-15 09:53] VITALS: BP 158/95; PULSE 56; RESP 16; TEMP 36.3; O2SAT 98
== END 2023-11-15 10:28 | disposition home or self-care (01) ==
PROVIDERS: PCP Physician Assistant; Visit Provider Internal Medicine Gastroenterology
PROC: 0DJ08ZZ Inspection of Upper Intestinal Tract, Via Natural or Artificial Opening Endoscopic (ICD-10-PCS; CPT 43235; principal; 2023-11-15 10:00)
DX: K22.2 Esophageal obstruction (principal); K22.10 Ulcer of esophagus without bleeding; K29.60 Other gastritis without bleeding; K44.9 Diaphragmatic hernia without obstruction or gangrene; I10 Essential (primary) hypertension; E78.5 Hyperlipidemia, unspecified; K21.9 Gastro-esophageal reflux disease without esophagitis; K75.81 Nonalcoholic steatohepatitis (NASH); F17.200 Nicotine dependence, unspecified, uncomplicated; Z87.19 Personal history of other diseases of the digestive system
CPT/HCPCS: 43239; 88305; 88313; 88342; J1596; J2250; J2704

== ENCOUNTER → 2023-11-15 07:16 | Outpatient (BNV) | payer OTHER, SELFPAY | PROVIDERS: PCP Physician Assistant; Visit Provider Internal Medicine Gastroenterology | DX: K22.2 Esophageal obstruction (principal); K20.90 Esophagitis, unspecified without bleeding; K29.70 Gastritis, unspecified, without bleeding; K44.9 Diaphragmatic hernia without obstruction or gangrene | CPT/HCPCS: 43239 ==

== ENCOUNTER 2023-11-20 13:18 | Outpatient (AMB) | payer OTHER, SELFPAY ==
--- NOTE | 2023-11-20 12:50 | AM.OFFVISNUR ---
Intake Intake Visit Reasons: EKG Intake Note: Pt came to office w c/o palpitations and fast HR. Denies CP, SOB, dizziness. He states before he got here he was feeling rapid heart rate and like he couldn't catch his breath. States it feels weird and does provoke anxiety . Quality Engineering Manager Required: No Accompanied by: Self / Same As Patient Allergies venlafaxine [From Effexor] Adverse Reaction (Intermediate, Verified 10/18/23 10:57) sweats Followed by:: Dr. Torres Nursing Note I connected pt to EKG and ran it continuously for ~ 6-7 mins. No abnormal rhythm or palpitations noted. EKG completed, EKG auto-reading sinus bradycardia at 54bpm. He also had a single lead telephone device that did show a 30 second rhythm strip that had a small section of what appeared to be artifact. The EKG was reviewed by Dr. Peace as normal and he reviewed the single lead telephone device rhythm as artifact. Pt was offered reassurance and his holter monitor appt will be moved to a sooner date. Office Procedures EKG [id number], Complete Coding Level of Care Code Est Pt Level 1 (64864) CPT Codes EKG - CPT: 88217-[id number], Complete ([id number]) Time Spent (min) 30 Comment EKG, Med Rec, Document, Reassurance, Ed, Physician communication, diagnostic arrangement
== END 2023-11-20 13:19 | disposition home or self-care (01) ==
LOC: HO.HCS 13:19
PROVIDERS: PCP Physician Assistant; Visit Provider Internal Medicine
DX: R00.1 Bradycardia, unspecified (principal)
CPT/HCPCS: 93010

== ENCOUNTER → 2023-11-20 13:18 | Outpatient (BNVA) | payer OTHER, SELFPAY | PROVIDERS: PCP Physician Assistant; Visit Provider Internal Medicine | DX: R00.2 Palpitations (principal) | CPT/HCPCS: 93005; 99211 ==

== ENCOUNTER 2023-11-21 10:56 | Outpatient (AMB) | payer OTHER, SELFPAY ==
[2023-11-21 10:57] VITALS: BP 162/92; PULSE 53; O2SAT 98; BMI 32.0
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
[2023-11-21 11:31] VITALS: BP 142/70
== END 2023-11-21 11:49 | disposition home or self-care (01) ==
PROVIDERS: PCP Physician Assistant; Visit Provider Physician Assistant
DX: I10 Essential (primary) hypertension (principal); F41.1 Generalized anxiety disorder; E78.2 Mixed hyperlipidemia; N28.89 Other specified disorders of kidney and ureter; E66.09 Other obesity due to excess calories; Z68.32 Body mass index [BMI] 32.0-32.9, adult; I49.3 Ventricular premature depolarization
CPT/HCPCS: 99214

== ENCOUNTER 2023-12-02 08:01 | Emergency (ER) | payer OTHER, SELFPAY ==
--- NOTE | 2023-12-02 08:04 | ECG_ITS ---
Test Reason : CP Blood Pressure : / mmHG Vent. Rate : 119 BPM Atrial Rate : 000 BPM P-R Int : 000 ms QRS Dur : 078 ms QT Int : 314 ms P-R-T Axes : 000 015 042 degrees QTc Int : 441 ms Atrial fibrillation with rapid ventricular response Abnormal ECG When compared with ECG of 18-OCT-2020 04:17, Atrial fibrillation has replaced Sinus rhythm Vent. rate has increased BY 44 BPM Referred By: Generic ED Physician Electronically Signed By:RAVEN ALEXANDRE MD
[2023-12-02 08:21] VITALS: BP 145/90; PULSE 101; RESP 20; TEMP 37.1; O2SAT 97; BMI 36.9
[2023-12-02 08:22] LABS: MANUAL DIFF FLAG NO
[2023-12-02 08:27] LABS: Basophils Percent Auto 0.4 % (0-2); Eosinophils Absolute Auto 0.1 X10*3/uL (0.0-0.4); Eosinophils Percent Auto 1.8 % (0-4); Hematocrit 49.5 % (42.0-52.0); Hemoglobin 16.9 g/dl (14.0-18.0); Imm Gran Abs Auto 0.02 X10*3/uL (0.00-0.03); Imm Gran Pct Auto 0.3 % (0.0-0.4); Lymphocytes Absolute Auto 2.9 X10*3/uL (1.2-4.9); Lymphocytes Percent Auto 40.2 % (20-40); Mean Corpuscular HGB Conc 34.1 g/dl (31.0-36.0); Mean Corpuscular Hemoglobin 31.2 pg (27.0-33.0); Mean Corpuscular Volume 91.5 fL (80.0-98.0); Mean Platelet Volume 10.8 fL (9.4-12.4); Monocytes Absolute Auto 0.7 X10*3/uL (0.1-1.2); Monocytes Percent Auto 9.6 % (2-11); Neutrophils Absolute Auto 3.4 x10*3/uL (2.0-8.3); Neutrophils Percent Auto 47.7 % (45-73); Platelet Count 183 X10*3/uL (160-400); Red Blood Count 5.41 X10*6/uL (4.60-5.80); White Blood Count 7.1 X10*3/uL (4.8-10.8)
--- NOTE | 2023-12-02 08:34 | ECG_ITS ---
Test Reason : ? AFIB Blood Pressure : / mmHG Vent. Rate : 056 BPM Atrial Rate : 056 BPM P-R Int : 154 ms QRS Dur : 084 ms QT Int : 400 ms P-R-T Axes : 030 036 050 degrees QTc Int : 386 ms Sinus bradycardia Nonspecific ST abnormality Abnormal ECG When compared with ECG of 02-DEC-2023 08:09, Sinus rhythm has replaced Atrial fibrillation Vent. rate has decreased BY 63 BPM Referred By: Audra Lindsey Electronically Signed By:RAVEN ALEXANDRE MD
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
[2023-12-02 08:50] LABS: Anion Gap 13 (12-20); Blood Urea Nitrogen 28 mg/dL (9-16); Calcium 10.3 mg/dL (8.4-10.2); Carbon Dioxide 24 mmol/L (22-29); Chloride 105 mmol/L (96-108); Creatinine Clr Calc Pharmacy 57.2; Estimated Glomerular Filt Rate 48; Ethanol < 10 mg/dL; Glucose Random 140 mg/dL (60-115); Potassium 3.7 mmol/L (3.3-5.1); Sodium 138 mmol/L (135-145)
[2023-12-02 08:52] LABS: Troponin-I High Sensitivity 4.6 ng/L (<3.5-35.0)
--- NOTE | 2023-12-02 09:00 | PC.NURSE ---
This RN brought patient to room, was noted to have a HR of 100-160, IV placed, provider at bedside. repeat EKG completed, pt HR now 53, provider aware, 5 Lopressor on hold at this time per provider. Pt remains on monitor 50-60. Denies SOB at this time, at bedside
[2023-12-02] MEDS: 0.9 % Sodium Chloride 1,000 ML 999 ML IV (09:07)
[2023-12-02 09:29] LABS: Influenza A PCR NEGATIVE (Negative); Influenza B PCR NEGATIVE (Negative); Resp Syncy Virus RNA Qual PCR NEGATIVE (Negative); SARS COV2 PCR INHOUSE NEGATIVE (Negative)
[2023-12-02 09:56] LABS: Appearance Urine Clear; Color Urine Yellow; Glucose Urine UA Negative (Negative); Leukocyte Esterase Urine Negative (Negative); Nitrite Urine Negative (Negative); PH 6.5 (5.0-9.0); Specific Gravity - Urine <= 1.005 (1.005-1.025); Urine Blood Negative (Negative); Urine Ketones Negative (Negative); Urine Protein Trace mg/dL (Neg-Trace)
[2023-12-02 10:54] VITALS: BP 158/87; PULSE 52; RESP 18; TEMP 36.5; O2SAT 98
[2023-12-02 11:20] LABS: Anion Gap 11 (12-20); Blood Urea Nitrogen 27 mg/dL (9-16); Calcium 9.9 mg/dL (8.4-10.2); Carbon Dioxide 28 mmol/L (22-29); Chloride 107 mmol/L (96-108); Creatinine Clr Calc Pharmacy 55.3; Estimated Glomerular Filt Rate 46; Glucose Random 121 mg/dL (60-115); Potassium 4.5 mmol/L (3.3-5.1); Sodium 141 mmol/L (135-145)
[2023-12-02 12:02] VITALS: BP 145/90; PULSE 68; RESP 18; O2SAT 97
== END 2023-12-02 12:03 | disposition home or self-care (01) ==
PROVIDERS: Emergency Provider Student in an Organized Health Care Education/Training Program; PCP Physician Assistant
DX: I48.0 Paroxysmal atrial fibrillation (principal); N17.9 Acute kidney failure, unspecified; R00.2 Palpitations; I12.9 Hypertensive chronic kidney disease with stage 1 through stage 4 chronic kidney disease, or unspecified chronic kidney disease; N18.9 Chronic kidney disease, unspecified; Z11.52 Encounter for screening for COVID-19; Z20.828 Contact with and (suspected) exposure to other viral communicable diseases
CPT/HCPCS: 0241U; 36415; 80048; 80307; 81003; 84484; 85025; 93005; 99284; 99285

== ENCOUNTER → 2023-12-02 08:04 | Outpatient (BNV) | payer OTHER, SELFPAY | PROVIDERS: Emergency Provider Student in an Organized Health Care Education/Training Program; PCP Physician Assistant; Visit Provider Internal Medicine Cardiovascular Disease | DX: I48.91 Unspecified atrial fibrillation (principal); R00.1 Bradycardia, unspecified | CPT/HCPCS: 93010 ==

== ENCOUNTER → 2023-12-06 08:42 | Outpatient (REF) | payer OTHER, SELFPAY ==
--- NOTE | 2023-12-06 08:45 | HM_ITS ---
Conclusion: 1. Patient was monitored for total period of 6 days and 23 hours 2. Baseline was normal sinus rhythm with average heart of 62 beats per minute 3. Frequent sinus bradycardia noted with 59% of time heart rate below 60 beats per minute with no significant pauses 4. Occasional PVCs noted 5. Rare PACs noted with for Supra ventricular runs, longest 16 beats at 144 beats per minute suggestive atrial tachycardia 6. Patient reported about 22 events mostly fluttering in chest correlating with isolated PVCs or PACs and also 1 episode rapid heart rate that correlates with 1 SVT at 112 beats per minute MTDD
== END ==
LOC: HO.CARD 08:42
PROVIDERS: PCP Physician Assistant; Visit Provider Internal Medicine
DX: I47.10 Supraventricular tachycardia, unspecified (principal); I49.1 Atrial premature depolarization; I49.3 Ventricular premature depolarization; R00.2 Palpitations
CPT/HCPCS: 93242

== ENCOUNTER → 2023-12-06 08:45 | Outpatient (BNV) | payer OTHER, SELFPAY | PROVIDERS: PCP Physician Assistant; Visit Provider Internal Medicine Cardiovascular Disease | DX: R00.1 Bradycardia, unspecified (principal) | CPT/HCPCS: 93244 ==

== ENCOUNTER 2023-12-12 11:40 | Outpatient (AMB) | payer OTHER, SELFPAY ==
[2023-12-12 11:48] VITALS: BP 120/80; PULSE 67; TEMP 36.8; O2SAT 95
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
== END 2023-12-12 13:02 | disposition home or self-care (01) ==
PROVIDERS: PCP Physician Assistant; Visit Provider Nurse Practitioner Primary Care
DX: M10.9 Gout, unspecified (principal)
CPT/HCPCS: 99214

== ENCOUNTER 2023-12-12 12:10 | Outpatient (REF) | payer OTHER, SELFPAY ==
--- NOTE | ~2023-12-12 | XR_ITS ---
EXAMINATION: XR FOOT, RIGHT CLINICAL INFORMATION: Pain COMPARISON: None available. TECHNIQUE: AP, lateral, and oblique views of the right foot. FINDINGS: The ankle mortise and subtalar joints are normal. There is a small calcaneal heel and retrocalcaneal enthesophyte. No visible fracture or dislocation seen. The soft tissues are normal. XR/XR foot RT min 3V IMPRESSION: Small calcaneal heel and retrocalcaneal enthesophyte. No visible acute fracture, dislocation or subluxation seen.
[2023-12-12 16:05] LABS: MANUAL DIFF FLAG NO
[2023-12-12 16:21] LABS: Basophils Percent Auto 0.3 % (0-2); Eosinophils Percent Auto 0.4 % (0-4); Hematocrit 50.2 % (42.0-52.0); Hemoglobin 16.6 g/dl (14.0-18.0); Imm Gran Abs Auto 0.04 X10*3/uL (0.00-0.03); Imm Gran Pct Auto 0.4 % (0.0-0.4); Lymphocytes Absolute Auto 2.3 X10*3/uL (1.2-4.9); Lymphocytes Percent Auto 23.4 % (20-40); Mean Corpuscular HGB Conc 33.1 g/dl (31.0-36.0); Mean Corpuscular Hemoglobin 30.8 pg (27.0-33.0); Mean Corpuscular Volume 93.1 fL (80.0-98.0); Mean Platelet Volume 11.4 fL (9.4-12.4); Monocytes Absolute Auto 0.9 X10*3/uL (0.1-1.2); Monocytes Percent Auto 9.1 % (2-11); Neutrophils Absolute Auto 6.6 x10*3/uL (2.0-8.3); Neutrophils Percent Auto 66.4 % (45-73); Platelet Count 189 X10*3/uL (160-400); Red Blood Count 5.39 X10*6/uL (4.60-5.80); Red Cell Distribution Width 14.4 % (11.0-16.0); White Blood Count 9.9 X10*3/uL (4.8-10.8)
[2023-12-12 16:42] LABS: Alanine Aminotransferase 20 U/L (0-40); Albumin Level 4.4 g/dL (3.5-5.0); Alkaline Phosphatase 65 U/L (39-117); Anion Gap 13 (12-20); Aspartate Amino Transferase 17 U/L (5-37); Bilirubin Total 1.2 mg/dL (0.0-1.0); Blood Urea Nitrogen 16 mg/dL (9-16); Calcium 9.6 mg/dL (8.4-10.2); Carbon Dioxide 26 mmol/L (22-29); Chloride 103 mmol/L (96-108); Estimated Glomerular Filt Rate > 60; Glucose Random 106 mg/dL (60-115); Potassium 3.8 mmol/L (3.3-5.1); Sodium 138 mmol/L (135-145); Uric Acid 7.4 mg/dL (3.4-7.0)
== END 2023-12-12 12:11 | disposition home or self-care (01) ==
LOC: HO.HMGCX 12:10
PROVIDERS: PCP Physician Assistant; Visit Provider Nurse Practitioner Primary Care
DX: M79.671 Pain in right foot (principal); D72.829 Elevated white blood cell count, unspecified; Z91.89 Other specified personal risk factors, not elsewhere classified
CPT/HCPCS: 36415; 73630; 80053; 84550; 85025

== ENCOUNTER 2023-12-18 08:38 | Outpatient (AMB) | payer OTHER, SELFPAY ==
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
[2023-12-18 08:48] VITALS: BP 150/86; PULSE 78; BMI 35.9
== END 2023-12-18 09:20 | disposition home or self-care (01) ==
PROVIDERS: PCP Physician Assistant; Visit Provider Internal Medicine
DX: I48.0 Paroxysmal atrial fibrillation (principal); I47.10 Supraventricular tachycardia, unspecified; I49.1 Atrial premature depolarization; I49.3 Ventricular premature depolarization; I10 Essential (primary) hypertension
CPT/HCPCS: 99214

== ENCOUNTER → 2023-12-18 08:38 | Outpatient (BNVA) | payer OTHER, SELFPAY | PROVIDERS: PCP Physician Assistant; Visit Provider Internal Medicine | DX: I48.0 Paroxysmal atrial fibrillation (principal); I49.1 Atrial premature depolarization; I49.3 Ventricular premature depolarization; I10 Essential (primary) hypertension; I47.19 Other supraventricular tachycardia | CPT/HCPCS: 99212 ==

== ENCOUNTER → 2024-01-10 10:42 | Outpatient (BNVA) | payer OTHER, SELFPAY | PROVIDERS: PCP Physician Assistant; Visit Provider Internal Medicine | DX: R00.1 Bradycardia, unspecified (principal) | CPT/HCPCS: 93005 ==

== ENCOUNTER 2024-01-10 10:44 | Outpatient (AMB) | payer OTHER, SELFPAY ==
--- NOTE | 2024-01-10 10:44 | AM.OFFVISNUR ---
Intake Intake Visit Reasons: EKG Allergies venlafaxine [From Effexor] Adverse Reaction (Intermediate, Verified 12/18/23 08:48) sweats Nursing Note PT is here For Nurse Visit PT is taking Flecanide 50 mg PO PT states feels flatters when resting or laying down , or sitting EKG was done in OV EKG is reviewed by configuration management analyst Procedures EKG [id number], Complete Coding CPT Codes EKG - CPT: 83314-[id number], Complete ([id number])
== END 2024-01-10 14:12 | disposition home or self-care (01) ==
PROVIDERS: PCP Physician Assistant; Visit Provider Internal Medicine
DX: R00.1 Bradycardia, unspecified (principal)
CPT/HCPCS: 93010

== ENCOUNTER 2024-02-01 07:40 | Outpatient (REF) | payer OTHER, SELFPAY ==
[2024-02-01 08:54] LABS: Alanine Aminotransferase 22 U/L (0-40); Albumin Level 4.1 g/dL (3.5-5.0); Alkaline Phosphatase 67 U/L (39-117); Anion Gap 13 (12-20); Aspartate Amino Transferase 23 U/L (5-37); Bilirubin Total 0.9 mg/dL (0.0-1.0); Blood Urea Nitrogen 20 mg/dL (9-16); Calcium 9.4 mg/dL (8.4-10.2); Carbon Dioxide 26 mmol/L (22-29); Chloride 103 mmol/L (96-108); Cholesterol 204 mg/dL (<200); Estimated Glomerular Filt Rate > 60; Glucose Fasting 134 mg/dL (60-99); HDL Cholesterol 31 mg/dL (>40); LDL Cholesterol Calculated 145 mg/dL (<100); Potassium 3.9 mmol/L (3.3-5.1); Sodium 138 mmol/L (135-145); Total Protein 7.5 g/dL (6.5-8.0); Triglycerides 141 mg/dL (<150)
[2024-02-01 09:09] LABS: TSH reflex Free T4 1.25 uIU/mL (0.32-4.0)
[2024-02-01 09:10] LABS: Prostate Specific Antigen Scr 1.87 ng/mL (<0.05-4.0)
[2024-02-01 09:37] LABS: Creatinine Urine 168.61 mg/dL; Microalbum/Creatinine Ratio Ur 5.9 ug/mg cr (<30)
== END 2024-02-01 07:41 | disposition home or self-care (01) ==
LOC: HO.LAB 07:40
PROVIDERS: PCP Physician Assistant; Visit Provider Internal Medicine
DX: I10 Essential (primary) hypertension (principal); Z12.5 Encounter for screening for malignant neoplasm of prostate; E78.2 Mixed hyperlipidemia; R00.2 Palpitations
CPT/HCPCS: 36415; 80053; 80061; 82043; 82570; 84153; 84443

== ENCOUNTER 2024-02-29 07:00 | Day surgery (SDC) | payer OTHER, SELFPAY ==
[2024-02-27 16:30] VITALS: BMI 35.9
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
[2024-02-28 10:17] VITALS: BMI 30.7
[2024-02-29 07:07] VITALS: BP 104/65; PULSE 80; RESP 18; TEMP 36.6; O2SAT 97
[2024-02-29] MEDS: Lactated Ringers 1,000 ML 100 ML IVCONT (07:17)
--- NOTE | 2024-02-29 07:40 | MHC.SHP ---
Pre-Procedural Eval Section A - 24 Hr Update-Section A only Date of Service: 02/29/24 Section B - Complete if H&P > 30 days Chief Complaint: Encounter for screening for malignant neoplasm of Relevant Family History (Specify if Yes): No Relevant Social History: None Present Medications: see Short Stay Collaborative assessment Medical History: Significant History (CKD (chronic kidney disease) stage 3, GFR 30-59 ml/min Adenomyomatosis of gallbladder History of blood transfusion Prepatellar bursitis COVID-19 vaccine administered Barretts esophagus Hiatal hernia Cervical stenosis of spine GERD (gastroesophageal reflux disease) Anxiety Chronic renal insufficiency) History of Previous Operations: Relevant previous surgery/procedure and date(s) (Hx of knee surgery History of esophagogastroduodenoscopy (EGD) Hx of colonoscopy History of surgery on arm History of appendectomy) Allergies: Allergies Allergy/AdvReac Type Severity Reaction Status Date / Time venlafaxine [From Effexor] AdvReac Intermediate sweats Verified 02/28/24 10:16 Review of Systems Sugical H&P ROS: Negative: Constitution, Cardiovascular, Respiratory, Neurological, Psychiatric, Hem-Onc, Allergic/Immunologic, Gastrointestinal, Genitourinary, Musculoskeletal, Integumentary, Endocrine and Eyes/Ears/Nose/Throat Exam Surgical H&P Exam: Normal: HEENT, Normal: Heart, Normal: Lungs, Normal: Extremities, Normal: Abdomen, Normal: Skin and Normal: Neurological Plan Diagnosis/Plan: Unchanged I have reviewed the history and physical and performed a pertinent physical examination on my patient. No changes have occurred unless specified. Time Spent With Patient Time: Total time managing care of this patient today ____ minutes.
--- NOTE | 2024-02-29 08:05 | HO.OPN-COLON ---
Colonoscopy Operative Note Operative Note Date of Service: 02/29/24 Narrative: Operative Information Procedure Description: Colonoscopy Indication: screening Anesthesia: MAC COLONOSCOPY Instrument: Olympus variable stiffness pediatric scope 190L Colonoscopy Monitoring: Vital signs and clinical assessment, continuous EKG monitoring, Pulse oximetry, Carbon Dioxide monitoring and blood pressure monitoring were done throughout the procedure. Colon withdrawal time was 9 minutes. Procedure: The patient was placed in the left lateral decubitis position and pre-procedure medications were administered. After a digital rectal examination of the ano-rectum, the video colonoscope was inserted into the rectum and advanced through the colon to the cecum/TI. The colonoscope was slowly withdrawn in a retrograde panoramic fashion and the colon mucosa was carefully examined including a retroflexed view of the rectum. Findings and interventions are described below. Procedure Difficulty: easy Findings: Terminal Ileum-normal Cecum: flat polyp 7-9 mm lifted with eleview and then removed with cold snare Right sided retroflexion- normal Ascending Colon: normal Transverse Colon -normal Descending Colon:normal Sigmoid Colon: diverticulosis - moderate Rectum: Retroflexion with small internal hemorrhoids seen, grade I Anorectum - normal Intervention: cold snare and eleview lift Colon preparation: [place] Bowel Preparation Scale Right colon; 1-2 Transverse colon: 1-2 Left colon; 2 (0 = Unprepared colon segment with mucosa not seen due to solid stool that cannot be cleared. 1 = Portion of mucosa of the colon segment seen, but other areas of the colon segment not well seen due to staining, residual stool and/or opaque liquid. 2 = Minor amount of residual staining, small fragments of stool and/or opaque liquid, but mucosa of colon segment seen well. 3 = Entire mucosa of colon segment seen well with no residual staining, small fragments of stool or opaque liquid) Impression and Post Procedure Diagnosis: diverticulosis colon polyp internal hemorrhoids Plan: High fiber diet leaflet Avoid straining at stool, epsom salts and sitz bath, anusol supps or cream Repeat Colonoscopy in 5 years or earlier if clinically indicated Above findings were reviewed with the patient and relevant handouts were provided if indicated.
[2024-02-29 08:17] VITALS: BP 80/33; PULSE 48; RESP 18; TEMP 36.1; O2SAT 94
[2024-02-29 08:32] VITALS: BP 99/53; PULSE 55; RESP 18; TEMP 36.2; O2SAT 96
== END 2024-02-29 08:59 | disposition home or self-care (01) ==
PROVIDERS: PCP Physician Assistant; Visit Provider Internal Medicine Gastroenterology
PROC: 0DJD8ZZ Inspection of Lower Intestinal Tract, Via Natural or Artificial Opening Endoscopic (ICD-10-PCS; CPT 45378; principal; 2024-02-29 09:20)
DX: Z12.11 Encounter for screening for malignant neoplasm of colon (principal); D12.0 Benign neoplasm of cecum; K57.30 Diverticulosis of large intestine without perforation or abscess without bleeding; K64.0 First degree hemorrhoids; I12.9 Hypertensive chronic kidney disease with stage 1 through stage 4 chronic kidney disease, or unspecified chronic kidney disease; N18.30 Chronic kidney disease, stage 3 unspecified
CPT/HCPCS: 45385; 45381; 88305; J2704

== ENCOUNTER → 2024-02-29 07:00 | Outpatient (BNV) | payer OTHER, SELFPAY | PROVIDERS: PCP Physician Assistant; Visit Provider Internal Medicine Gastroenterology | DX: Z12.11 Encounter for screening for malignant neoplasm of colon (principal); D12.0 Benign neoplasm of cecum; K64.0 First degree hemorrhoids; K57.90 Diverticulosis of intestine, part unspecified, without perforation or abscess without bleeding | CPT/HCPCS: 45381; 45385 ==

== ENCOUNTER 2024-03-12 08:26 | Outpatient (AMB) | payer OTHER, SELFPAY ==
[2024-03-12 08:46] VITALS: BP 102/60; PULSE 53; BMI 30.7
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
== END 2024-03-12 09:07 | disposition home or self-care (01) ==
PROVIDERS: PCP Physician Assistant; Visit Provider Internal Medicine
DX: I48.0 Paroxysmal atrial fibrillation (principal); I47.10 Supraventricular tachycardia, unspecified; I49.1 Atrial premature depolarization; I49.3 Ventricular premature depolarization; I10 Essential (primary) hypertension; I25.10 Atherosclerotic heart disease of native coronary artery without angina pectoris
CPT/HCPCS: 93010; 99214

== ENCOUNTER → 2024-03-12 08:26 | Outpatient (BNVA) | payer OTHER, SELFPAY | PROVIDERS: PCP Physician Assistant; Visit Provider Internal Medicine | DX: I48.0 Paroxysmal atrial fibrillation (principal); I47.10 Supraventricular tachycardia, unspecified; I49.1 Atrial premature depolarization; I49.3 Ventricular premature depolarization; I10 Essential (primary) hypertension; I25.10 Atherosclerotic heart disease of native coronary artery without angina pectoris; Z79.899 Other long term (current) drug therapy | CPT/HCPCS: 93005; 99212 ==

== ENCOUNTER 2024-06-14 09:29 | Outpatient (AMB) | payer OTHER, SELFPAY ==
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
[2024-06-14 09:37] VITALS: BP 124/64; PULSE 58; RESP 15; O2SAT 98; BMI 31.1
== END 2024-06-14 11:30 | disposition home or self-care (01) ==
PROVIDERS: PCP Physician Assistant; Visit Provider Nurse Practitioner Family
DX: M25.461 Effusion, right knee (principal); M25.561 Pain in right knee

== ENCOUNTER → 2024-06-14 09:29 | Outpatient (BNVA) | payer OTHER, SELFPAY | PROVIDERS: PCP Physician Assistant ==

== ENCOUNTER 2024-06-14 10:50 | Outpatient (REF) | payer OTHER, SELFPAY ==
--- NOTE | ~2024-06-14 | XR_ITS ---
EXAMINATION: XR KNEE, RIGHT CLINICAL INFORMATION: Right knee pain. COMPARISON: November 03, 2021 TECHNIQUE: Four views of the right knee. FINDINGS: Alignment is anatomic. Joint spaces are maintained. No significant joint effusion. Prepatellar soft tissue swelling. XR/XR knee RT 4V IMPRESSION: Prepatellar soft tissue swelling. Electronically signed by: Parveen Sweeney MD 06/14/2024 01:03 PM EDT
== END 2024-06-14 10:51 | disposition home or self-care (01) ==
LOC: HO.HMGCX 10:50
PROVIDERS: PCP Physician Assistant; Visit Provider Nurse Practitioner Family
DX: M25.461 Effusion, right knee (principal); M25.561 Pain in right knee
CPT/HCPCS: 73564; 99212

== ENCOUNTER 2024-07-01 13:38 | Outpatient (AMB) | payer OTHER, SELFPAY ==
[2024-07-01 13:39] VITALS: BMI 31.0
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
== END 2024-07-01 14:14 | disposition home or self-care (01) ==
PROVIDERS: PCP Physician Assistant; Visit Provider Orthopaedic Surgery
DX: M25.561 Pain in right knee (principal)
CPT/HCPCS: 99213

== ENCOUNTER → 2024-07-01 13:38 | Outpatient (BNVA) | payer OTHER, SELFPAY | PROVIDERS: PCP Physician Assistant; Visit Provider Orthopaedic Surgery | DX: M25.561 Pain in right knee (principal) | CPT/HCPCS: 99212 ==

== ENCOUNTER 2024-07-26 11:31 | Outpatient (REF) | payer OTHER, SELFPAY ==
--- NOTE | ~2024-07-26 | XR_ITS ---
EXAMINATION: XR ANKLE, LEFT XR FOOT, LEFT CLINICAL INFORMATION: Left ankle and foot pain. COMPARISON: Left foot radiographs dated 12/21/2020. TECHNIQUE: AP, oblique, and lateral views of the left ankle and foot. FINDINGS: LEFT ANKLE: Ossification at the inferior aspect of the medial malleolus, consistent with an age-indeterminate avulsion injury. Correlate for focal tenderness to exclude acute fracture. Corticated ossification adjacent to the lateral malleolus, consistent with a remote, unfused avulsion injury. No dislocation. The ankle mortise is maintained. No talar osteochondral lesion. Small tibiotalar joint effusion. Prominent circumferential soft tissue swelling. Plantar and dorsal calcaneal spurs. LEFT FOOT: No acute fracture or dislocation. Severe joint space narrowing with marginal osteophytes and bony remodeling at the first metatarsophalangeal joint and hallux sesamoids. No concerning lytic or blastic osseous lesion. Plantar and dorsal calcaneal spurs. XR/XR foot LT 2V IMPRESSION: LEFT ANKLE: Ossification at the inferior aspect of the medial malleolus, consistent with an age-indeterminate avulsion injury. Correlate for focal tenderness to exclude acute fracture. Corticated ossification adjacent to the lateral malleolus, consistent with a remote, unfused avulsion injury. Prominent circumferential soft tissue swelling. Small tibiotalar joint effusion. 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 Plantar and dorsal calcaneal spurs. Electronically signed by: Ramón Cruz MD 07/26/2024 04:32 PM EDT
--- NOTE | ~2024-07-26 | US_ITS ---
EXAMINATION: US TRIPLEX LOWER EXTREMITY, LEFT CLINICAL INFORMATION: Left leg swelling, rule out DVT. COMPARISON: None available. TECHNIQUE: Color-flow triplex imaging with spectral analysis and compression Doppler were performed on the left lower extremity. FINDINGS: Respiratory variation, normal compression and augmented flow are noted throughout the left lower extremity. The visualized common femoral vein, superficial femoral vein, profunda femoral vein, popliteal vein and midcalf peroneal and posterior tibial venous segments show no evidence of deep venous thrombosis. There is no Brandon's cyst. US/US venous duplex LE LT IMPRESSION: No evidence of deep venous thrombosis involving the left lower extremity. Electronically signed by: South Bhatia MD 07/26/2024 03:56 PM EDT
--- NOTE | ~2024-07-26 | XR_ITS ---
EXAMINATION: XR ANKLE, LEFT XR FOOT, LEFT CLINICAL INFORMATION: Left ankle and foot pain. COMPARISON: Left foot radiographs dated 12/21/2020. TECHNIQUE: AP, oblique, and lateral views of the left ankle and foot. FINDINGS: LEFT ANKLE: Ossification at the inferior aspect of the medial malleolus, consistent with an age-indeterminate avulsion injury. Correlate for focal tenderness to exclude acute fracture. Corticated ossification adjacent to the lateral malleolus, consistent with a remote, unfused avulsion injury. No dislocation. The ankle mortise is maintained. No talar osteochondral lesion. Small tibiotalar joint effusion. Prominent circumferential soft tissue swelling. Plantar and dorsal calcaneal spurs. LEFT FOOT: No acute fracture or dislocation. Severe joint space narrowing with marginal osteophytes and bony remodeling at the first metatarsophalangeal joint and hallux sesamoids. No concerning lytic or blastic osseous lesion. Plantar and dorsal calcaneal spurs. XR/XR ankle LT 2V IMPRESSION: LEFT ANKLE: Ossification at the inferior aspect of the medial malleolus, consistent with an age-indeterminate avulsion injury. Correlate for focal tenderness to exclude acute fracture. Corticated ossification adjacent to the lateral malleolus, consistent with a remote, unfused avulsion injury. Prominent circumferential soft tissue swelling. Small tibiotalar joint effusion. 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 Plantar and dorsal calcaneal spurs. Electronically signed by: Ramón Cruz MD 07/26/2024 04:32 PM EDT
== END 2024-07-26 11:32 | disposition home or self-care (01) ==
LOC: HO.HMGCX 11:31
PROVIDERS: PCP Physician Assistant; Visit Provider Physician Assistant Medical
DX: M79.672 Pain in left foot (principal); M10.9 Gout, unspecified; R60.0 Localized edema; M79.89 Other specified soft tissue disorders
CPT/HCPCS: 73600; 73620; 93971; 99212

== ENCOUNTER 2024-07-26 11:31 | Outpatient (AMB) | payer OTHER, SELFPAY ==
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
[2024-07-26 12:42] VITALS: BP 140/90; PULSE 60; O2SAT 98; BMI 31.4
== END 2024-07-26 14:43 | disposition home or self-care (01) ==
PROVIDERS: PCP Physician Assistant; Visit Provider Physician Assistant Medical
DX: M10.9 Gout, unspecified (principal)

== ENCOUNTER → 2024-07-26 13:44 | Outpatient (BNV) | payer OTHER, SELFPAY | PROVIDERS: PCP Physician Assistant; Visit Provider Radiology Diagnostic Radiology | DX: M79.672 Pain in left foot (principal) | CPT/HCPCS: 93971 ==

== ENCOUNTER 2024-08-21 10:24 | Outpatient (REF) | payer OTHER, SELFPAY ==
[2024-08-21 11:42] LABS: Hematocrit 47.9 % (42.0-52.0); Mean Corpuscular HGB Conc 33.4 g/dl (31.0-36.0); Mean Corpuscular Hemoglobin 31.9 pg (27.0-33.0); Mean Corpuscular Volume 95.6 fL (80.0-98.0); Platelet Count 181 X10*3/uL (160-400); Red Blood Count 5.01 X10*6/uL (4.60-5.80); Red Cell Distribution Width 13.6 % (11.0-16.0); White Blood Count 7.7 X10*3/uL (4.8-10.8)
[2024-08-21 12:05] LABS: Estimated Average Glucose 117 mg/dL; Hemoglobin A1C 152.9233 umol/L; Hemoglobin A1c % 5.7 % (<6.0); Total Hemoglobin (HGBA1C) 3995.9804 umol/L
[2024-08-21 12:22] LABS: Alanine Aminotransferase 22 U/L (0-40); Anion Gap 16 (12-20); Aspartate Amino Transferase 28 U/L (5-37); Bilirubin Total 0.9 mg/dL (0.0-1.0); Blood Urea Nitrogen 16 mg/dL (9-16); Calcium 9.6 mg/dL (8.4-10.2); Carbon Dioxide 25 mmol/L (22-29); Chloride 104 mmol/L (96-108); Cholesterol 191 mg/dL (<200); Estimated Glomerular Filt Rate 60; Glucose Fasting 119 mg/dL (60-99); HDL Cholesterol 37 mg/dL (>40); LDL Cholesterol Calculated 123 mg/dL (<100); Potassium 4.7 mmol/L (3.3-5.1); Sodium 140 mmol/L (135-145); Total Protein 7.1 g/dL (6.5-8.0); Triglycerides 156 mg/dL (<150); Uric Acid 8.6 mg/dL (3.4-7.0)
[2024-08-21 12:23] LABS: Alkaline Phosphatase 75 U/L (39-117)
== END 2024-08-21 10:25 | disposition home or self-care (01) ==
LOC: HO.LAB 10:24
PROVIDERS: PCP Physician Assistant; Visit Provider Physician Assistant
DX: M25.571 Pain in right ankle and joints of right foot (principal); I10 Essential (primary) hypertension; R73.01 Impaired fasting glucose; M10.9 Gout, unspecified; E78.2 Mixed hyperlipidemia; S93.401A Sprain of unspecified ligament of right ankle, initial encounter; S82.891A Other fracture of right lower leg, initial encounter for closed fracture
CPT/HCPCS: 36415; 80053; 80061; 83036; 84550; 85027; 99212

== ENCOUNTER 2024-08-21 13:28 | Outpatient (AMB) | payer OTHER, SELFPAY ==
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
[2024-08-21 14:28] VITALS: BP 122/90; PULSE 63; O2SAT 97; BMI 31.6
== END 2024-08-21 15:53 | disposition home or self-care (01) ==
PROVIDERS: PCP Physician Assistant; Visit Provider Physician Assistant
DX: M25.571 Pain in right ankle and joints of right foot (principal); S93.401A Sprain of unspecified ligament of right ankle, initial encounter; S82.891A Other fracture of right lower leg, initial encounter for closed fracture

== ENCOUNTER 2024-08-21 14:50 | Outpatient (REF) | payer OTHER, SELFPAY ==
--- NOTE | ~2024-08-21 | XR_ITS ---
EXAMINATION: XR ANKLE, RIGHT CLINICAL INFORMATION: M25.571 - Pain in right ankle and joints of right foot COMPARISON: None available. TECHNIQUE: AP, lateral, and mortise views of the right ankle. FINDINGS: No fracture. Alignment is anatomic. No erosions. Joint spaces are maintained. Soft tissues are normal. XR/XR ankle RT min 3V IMPRESSION: Normal right ankle. Electronically signed by: Nupur Lucio MD 08/22/2024 10:34 AM DEEPA DUGAN
== END 2024-08-21 14:51 | disposition home or self-care (01) ==
LOC: HO.HMGCX 14:50
PROVIDERS: PCP Physician Assistant; Visit Provider Physician Assistant
DX: M25.571 Pain in right ankle and joints of right foot (principal); S93.401A Sprain of unspecified ligament of right ankle, initial encounter
CPT/HCPCS: 73610

== ENCOUNTER 2024-08-28 13:07 | Outpatient (AMB) | payer OTHER, SELFPAY ==
[2024-08-28 13:19] VITALS: BP 132/86; PULSE 51; O2SAT 98; BMI 30.8
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
--- OUTSIDE RECORDS SUMMARY | 2024-09-03 19:24 | XMS_ITS | Continuity of Care Document ---
Author Organization [facility] Address [address] [place] [address] Phone Care Team Providers Care Pharmacy Care Coordinator Name Role Phone Woodrow OD, Kiah Unavailable Unavailable Allergies, Adverse Reactions, Alerts Substance Reaction Status Criticality No Known allergies Medications Medication Instructions Dosage Effective Dates (start - stop) Status Comments CLONIDINE (unknown strength) Not Available - Active ALPRAZOLAM INTENSOL (unknown strength) Not Available - Active metoprolol tartrate (unknown strength) Not Available - Active MECLIZINE HCL (unknown strength) Not Available - Active Procedures Procedure Date FACILITY FEE 40322 CATARACT SURG W/IOL, 1 STAGE ANESTH, LENS SURGERY OPHTHALMIC BIOMETRY OFFICE/OUTPATIENT VISIT, [facility] Advance Directives Directive Yes / No Effective Date File Name No Information Encounters Encounter Description Practice Location Reason(s) For Visit Diagnoses Date Provider Providers Copied on Encounter [facility] , [address], [place], [place], [id number] , [place] tel:[phone] [facility] No Information 3 Woodrow Kiah. [address] [place] [address], [id number], [place]. tel:[phone] [facility] , [address], [place], [place], [id number] , [place] tel:[phone] [facility] Posterior subcapsular polar senile cataract 3 [facility]. [address], [place], [place], [id number], [place]. tel:[phone] Referring Provider: JUDI SUGGS, [address], [place], [address] . tel:[phone] [facility] , [address] [place], [place], [id number] , [place] tel:[phone] [facility] Posterior subcapsular polar senile cataract Jul-2 0 3 Gwendolyn Rubin. [address], [address], [place], [id number], [place]. tel:[phone] Referring Provider: JUDI GIANNA SUGGS, [address], [place], [address] . tel:[phone] [facility] , [address] [place], [place], [id number] , [place] tel:[phone] [facility] Posterior subcapsular polar senile cataract 3 Sadaf Mccoy. [address] [place], [place], [address], [place]. tel:[phone] Referring Provider: JUDI GIANNA SUGGS, [address], [place], [address] . tel:[phone] [facility] , [address], [place], [place], [address] , [place] tel:[phone] [facility] Posterior subcapsular polar senile cataract 0 3 Gwendolyn Rubin. [address], [address], [place], [place], [address], [place]. tel:[phone] Referring Provider: Scottie Alexandre, [address], [address], [place], [address] . tel:[phone] OFFICE/OUTPA TIENT VISIT, [facility] , [address] [place], [place], [id number] , [place] tel:[phone] [facility] Posterior subcapsular polar senile cataractDermatochala sisDermatochalasisPo sterior subcapsular polar senile cataractDermatochala sisHypertensive retinopathy Oct-201 3 Claudio jose alfredo Holman. [address], [place], [place], [id number], . tel:[phone] Referring Provider: JUDI SUGGS, [address], [place], [address] . tel:[phone] Family History Family Member Type Diagnosis Age At Onset No Information Payers Payer name Insurance type Covered constitution party ID Authoriza tibryan(s) [place] GLENKylee [id number] Social History Type Description Quantity Date Captured Comments Sex Male Smoking Status No Information Chief Complaint And Reason For Visit No Information Reason For Referral Reason For Referral No Information History Of Present Illness Encounter Date Complaint History Of Prese nt Illness No Information Functional Status Date Functional Assessmen t No Information Instructions Date Instruction Additional Infor matcherelle Retinopathy, hyperte nsive OU. Entering BP today was 167/108, pulse 73, though 20 mins. later dropped to 158/97. - Discussed surgery requirement that BP be under 200 systolic and 100 diastolic, otherwise surgery will be cancelled. Pt understands. Related to Retinopathy, hypertensive Senile, (PSC) OD>OS - Discussed cataracts with [...] due to astigmatism. Related to Senile, (PSC) Dermatochalasis OU - Continue to monitor. Related to Dermatochalasis Assessments Type Assessment Date No Information Patient Care Teams Name Effective Dates (start - stop) Status Members No Information
== END 2024-08-28 14:07 | disposition home or self-care (01) ==
PROVIDERS: PCP Physician Assistant; Visit Provider Physician Assistant
DX: I10 Essential (primary) hypertension (principal); F41.1 Generalized anxiety disorder; E78.2 Mixed hyperlipidemia; I48.0 Paroxysmal atrial fibrillation; M25.471 Effusion, right ankle; S82.891A Other fracture of right lower leg, initial encounter for closed fracture; F10.10 Alcohol abuse, uncomplicated

== ENCOUNTER → 2024-08-28 13:07 | Outpatient (BNVA) | payer OTHER, SELFPAY | PROVIDERS: PCP Physician Assistant; Visit Provider Physician Assistant | DX: Z00.01 Encounter for general adult medical examination with abnormal findings (principal); I10 Essential (primary) hypertension; E78.2 Mixed hyperlipidemia; F41.1 Generalized anxiety disorder; M25.471 Effusion, right ankle; F10.10 Alcohol abuse, uncomplicated; I48.0 Paroxysmal atrial fibrillation; S82.891D Other fracture of right lower leg, subsequent encounter for closed fracture with routine healing; Z79.899 Other long term (current) drug therapy | CPT/HCPCS: 96127; 99212 ==

== ENCOUNTER 2024-08-29 08:00 | Outpatient (AMB) | payer OTHER, SELFPAY ==
[2024-08-29 10:10] VITALS: BP 142/68; PULSE 63
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
--- OUTSIDE RECORDS SUMMARY | 2024-09-03 23:30 | XMS_ITS | Continuity of Care Document ---
Author Organization [facility] Address [address] [place] [address] Phone Care Team Providers Care Drupal Web Developer Name Role Phone Woodrow OD, Kiah Unavailable [...] - Active Procedures Procedure Date FACILITY FEE 41848 CATARACT SURG W/IOL, 1 STAGE ANESTH, LENS SURGERY OPHTHALMIC BIOMETRY OFFICE/OUTPATIENT VISIT, [facility] Advance Directives Directive Yes / No Effective Date File Name No Information Encounters Encounter Description Practice Location Reason(s) For Visit Diagnoses Date Provider Providers Copied on Encounter [facility] , [address], [place], [place], [id number] , [place] tel:[phone] [facility] No Information 3 Woodrow Kiah. [address] [place] [address], [id number], [place]. tel:[phone] [facility] , [address], [place], [place], [address] , [place] tel:[phone] [facility] Posterior subcapsular polar senile cataract 3 [facility]. [address], [place], [place], [id number], [place]. tel:[phone] Referring Provider: JUDI SUGGS, [address], [place], [address] . tel:[phone] [facility] , [address] [place], [place], [id number] , [place] tel:[phone] [facility] Posterior subcapsular polar senile cataract Jul-2 0 3 Gwendolyn Rubin. [address], [address], [place], [id number], [place]. tel:[phone] Referring Provider: JUDI GIANNA SUGGS, [address], [place], [address] . tel:[phone] [facility] , [address] [place], [place], [address] , [place] tel:[phone] [facility] Posterior subcapsular polar senile cataract 3 Sadaf Mccoy. [address] [place], [place], [id number], [place]. tel:[phone] Referring Provider: JUDI GIANNA SUGGS, [address], [place], [address] . tel:[phone] [facility] , [address], [place], [place], [address] , [place] tel:[phone] [facility] Posterior subcapsular polar senile cataract 0 3 Gwendolyn Rubin. [address], [address], [place], [place], [id number], [place]. tel:[phone] Referring Provider: Scottie Alexandre, [address], [address], [place], [address] . tel:[phone] OFFICE/OUTPA TIENT VISIT, [facility] , [address] [place], [place], [address] , [place] tel:[phone] [facility] Posterior subcapsular polar senile cataractDermatochala sisDermatochalasisPo sterior subcapsular polar senile cataractDermatochala sisHypertensive retinopathy Oct-201 3 Claudio jose alfredo [address]man. [address], [place], [place], [id number], . tel:[phone] Referring Provider: JUDI SUGGS, [address], [place], [address] . tel:[phone] Family History Family Member Type Diagnosis Age At Onset No Information Payers Payer name Insurance type Covered libertarian ID Authoriza tibryan(s) LANDIS GLENKylee [id number] Social History Type Description Quantity Date Captured [...]
== END 2024-08-29 08:46 | disposition home or self-care (01) ==
PROVIDERS: PCP Physician Assistant; Visit Provider Internal Medicine
DX: I48.0 Paroxysmal atrial fibrillation (principal); I10 Essential (primary) hypertension
CPT/HCPCS: 93010; 99214; G2211

== ENCOUNTER 2024-08-29 08:00 | Outpatient (REF) | payer OTHER, SELFPAY ==
--- OUTSIDE RECORDS SUMMARY | 2024-09-04 04:25 | XMS_ITS | Continuity of Care Document ---
Author Organization [facility] Address [address] [place] [address] Phone Care Team Providers Care Rehab Tech Name Role Phone Woodrow OD, Kiah Unavailable [...] - Active Procedures Procedure Date FACILITY FEE 42685 CATARACT SURG W/IOL, 1 STAGE ANESTH, LENS SURGERY OPHTHALMIC BIOMETRY OFFICE/OUTPATIENT VISIT, [facility] Advance Directives Directive Yes / No Effective Date File Name No Information Encounters Encounter Description Practice Location Reason(s) For Visit Diagnoses Date Provider Providers Copied on Encounter [facility] , [address], [place], [place], [id number] , [place] tel:[phone] [facility] No Information 3 Woodrow Kiah. [address] [place] [address], [id number], [place]. tel:[phone] [facility] , [address], [place], [place], [address] , [place] tel:[phone] [facility] Posterior subcapsular polar senile cataract 3 [facility]. [address], [place], [place], [address], [place]. tel:[phone] Referring Provider: JUDI SUGGS, [address], [place], [address] . tel:[phone] [facility] , [address] [place], [place], [address] , [place] tel:[phone] [facility] Posterior subcapsular polar senile cataract Jul-2 0 3 Gwendolyn Rubin. [address], [address], [place], [id number], [place]. tel:[phone] Referring Provider: JUDI GIANNA SUGGS, [address], [place], [address] . tel:[phone] [facility] , [address] [place], [address] , [place] tel:[phone] [facility] Posterior subcapsular polar senile cataract 3 Sadaf Mccoy. [address] [place], [place], [address], [place]. tel:[phone] Referring Provider: JUDI GIANNA SUGGS, [address], [place], [address] . tel:[phone] [facility] , [address], [place], [place], [address] , [place] tel:[phone] [facility] Posterior subcapsular polar senile cataract 0 3 Gwendolyn Rubin. [address], [address], [place], [place], [address], [place]. tel:[phone] Referring Provider: Scottie Alexandre, [address], [address], [place], [address] . tel:[phone] OFFICE/OUTPA TIENT VISIT, [facility] , [address] [place], [place], [address] , [place] tel:[phone] [facility] Posterior subcapsular polar senile cataractDermatochala sisDermatochalasisPo sterior subcapsular polar senile cataractDermatochala sisHypertensive retinopathy Oct-201 [address], [place], [place], [id number], . tel:[phone] Referring Provider: JUDI SUGGS, [address], [place], [address] . tel:[phone] Family History Family Member Type Diagnosis Age At Onset No Information Payers Payer name Insurance type Covered libertarian ID Authoriza tibryan(s) INDEPENDENCE GLENLakisha [id number] Social History Type Description Quantity Date Captured Comments Sex Male Smoking Status No Information Chief Complaint And Reason For Visit No Information Reason For Referral Reason For Referral No Information History Of Present Illness Encounter Date Complaint History Of Prese nt Illness No Information Functional Status Date Functional Assessmen t No Information Instructions Date Instruction Additional Infor matcherelle Dermatochalasis OU - Continue to monitor. Related [...] due to astigmatism. Related to Senile, (PSC) Retinopathy, hyperte nsive OU. Entering BP today was 167/108, pulse 73, though 20 mins. later dropped to 158/97. - Discussed surgery requirement that BP be under 200 systolic and 100 diastolic, otherwise surgery will be cancelled. Pt understands. Related to Retinopathy, hypertensive Assessments Type Assessment Date No Information Patient Care Teams Name Effective Dates (start - stop) Status Members No Information
== END 2024-08-29 08:01 | disposition home or self-care (01) ==
LOC: HO.MRI 08:00
PROVIDERS: PCP Physician Assistant; Visit Provider Internal Medicine
DX: I48.0 Paroxysmal atrial fibrillation (principal); I10 Essential (primary) hypertension
CPT/HCPCS: 93005; 99212

== ENCOUNTER 2024-08-30 13:28 | Outpatient (AMB) | payer OTHER, SELFPAY ==
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
--- OUTSIDE RECORDS SUMMARY | 2024-09-04 09:38 | XMS_ITS | Continuity of Care Document ---
Author Organization [facility] Address [address] [place] [address] Phone Care Team Providers Care Fabrication Inspector Name Role Phone Woodrow OD, Kiah Unavailable [...] - Active Procedures Procedure Date FACILITY FEE 79138 CATARACT SURG W/IOL, 1 STAGE ANESTH, LENS SURGERY OPHTHALMIC BIOMETRY OFFICE/OUTPATIENT VISIT, [facility] Advance Directives Directive Yes / No Effective Date File Name No Information Encounters Encounter Description Practice Location Reason(s) For Visit Diagnoses Date Provider Providers Copied on Encounter [facility] , [address], [place], [place], [id number] , [place] tel:[phone] [facility] No Information 3 Woodrow Kiah. [address] [place] [address], [id number], [place]. tel:[phone] [facility] , [address], [place], [place], [address] , [place] tel:[phone] [facility] Posterior subcapsular polar senile cataract 3 [facility]. [address], [place], [place], [id number], [place]. tel:[phone] Referring Provider: JUDI SUGGS, [address], [place], [address] . tel:[phone] [facility] , [address] [place], [place], [address] , [place] tel:[phone] [facility] Posterior subcapsular polar senile cataract Jul-2 0 3 Gwendolyn Rubin. [address], [address], [place], [id number], [place]. tel:[phone] Referring Provider: JUDI GIANNA SUGGS, [address], [place], [address] . tel:[phone] [facility] , [address] [place], [place], [address] , [place] tel:[phone] [facility] Posterior subcapsular polar senile cataract 3 Sadaf Mccoy. [address] [place], [place], [address], [place]. tel:[phone] Referring Provider: JUDI GIANNA SUGGS, [address], [place], [address] . tel:[phone] [facility] , [address], [place], [place], [address] , [place] tel:[phone] [facility] Posterior subcapsular polar senile cataract 0 3 Gwendolyn Rubin. [address], [address], [place], [place], [address], [place]. tel:[phone] Referring Provider: Scottie Alexandre, [address], [address], [place], [address] . tel:[phone] OFFICE/OUTPA TIENT VISIT, [facility] , [address] [place], [place], [address] , [place] tel:[phone] [facility] Posterior subcapsular polar senile cataractDermatochala sisDermatochalasisPo sterior subcapsular polar senile cataractDermatochala sisHypertensive retinopathy Oct-201 3 Claudio jose alfredo [address]man. [address], [place], [place], [address], . tel:[phone] Referring Provider: JUDI SUGGS, [address], [place], [address] . tel:[phone] Family History Family Member Type Diagnosis Age At Onset No Information Payers Payer name Insurance type Covered republican ID Authoriza tibryan(s) [place] GLENKylee [id number] Social History Type Description Quantity Date Captured [...]
== END 2024-08-30 14:16 | disposition home or self-care (01) ==
PROVIDERS: PCP Physician Assistant; Visit Provider Physician Assistant
DX: S93.401A Sprain of unspecified ligament of right ankle, initial encounter (principal); M76.61 Achilles tendinitis, right leg
CPT/HCPCS: 99213; G2211

== ENCOUNTER 2024-08-30 15:07 | Outpatient (REF) | payer OTHER, SELFPAY ==
--- NOTE | ~2024-08-30 | MR_ITS ---
EXAMINATION: MR ANKLE WITHOUT CONTRAST, RIGHT CLINICAL INFORMATION: Right ankle pain, swelling, numbness, effusion. COMPARISON: Right ankle radiographs 08/21/2024. TECHNIQUE: MRI of the ankle was performed using routine sequences on a high-field scanner. FINDINGS: BONE AND ARTICULAR CARTILAGE: Cortical irregularity along the anterior SUV distal lateral malleolus consistent with an avulsion injury. Prominent marrow edema extends proximally through the posterior aspect of the lateral malleolus. Bone detail somewhat limited on MR examination. Corticated ossification without significant marrow edema adjacent to the medial malleolus as seen on the prior radiographs and consistent with a remote, unfused avulsion injury. No dislocation. The ankle mortise is maintained. No talar osteochondral lesion. Small plantar calcaneal spur. Focal articular cartilage loss with underlying subchondral cystic change at the medial cuneonavicular joint. No concerning lytic or blastic osseous lesion. ACHILLES TENDON: Mild distal Achilles tendinosis. No transverse tendon tear or tendon retraction. OTHER TENDONS: Prominent posterior tibialis tenosynovitis with mild distal tendinosis. Possible trace peroneal brevis and peroneal longus tenosynovitis. No transverse tendon tear or tendon retraction. LIGAMENTS: Significant attenuation of the anterior talofibular ligament as well as diffuse heterogeneity of the posterior talofibular ligament, consistent with grade 2 sprain/partial tears. Prominent adjacent soft tissue edema. Remote sprain/partial tear of the deltoid ligament. JOINT FLUID AND SOFT TISSUES: Moderate tibiotalar and subtalar joint effusions with synovitis. Anterolateral subcutaneous edema. No soft tissue mass. PLANTAR FASCIA: Mild proximal plantar fasciitis with minimal reactive marrow edema within the plantar calcaneal spur. No measurable tear. SINUS TARSI AND TARSAL TUNNEL: Patent. MR/MR ankle RT wo con IMPRESSION: 1. Acute grade 2 sprain/partial tears of the anterior and posterior talofibular ligaments with prominent adjacent soft tissue edema. Remote sprain/partial tear of the deltoid ligament. 2. Prominent posterior tibialis tenosynovitis with mild distal tendinosis. Possible trace peroneal brevis and peroneal longus tenosynovitis. No transverse tendon tear or tendon retraction. 3. Moderate tibiotalar and subtalar joint effusions with synovitis. Anterolateral subcutaneous edema. 4. Mild proximal plantar fasciitis with a small plantar calcaneal spur. Mild reactive marrow edema within the plantar calcaneal spur. Electronically signed by: Ramón Cruz MD 08/30/2024 04:20 PM DEEPA
--- OUTSIDE RECORDS SUMMARY | 2024-09-04 10:47 | XMS_ITS | Continuity of Care Document ---
Author Organization [facility] Address [address] [place] [address] Phone Care Team Providers Care Cytopathology Technologist Name Role Phone Woodrow OD, Kiah Unavailable [...] - Active Procedures Procedure Date FACILITY FEE 68301 CATARACT SURG W/IOL, 1 STAGE ANESTH, LENS SURGERY OPHTHALMIC BIOMETRY OFFICE/OUTPATIENT VISIT, [facility] Advance Directives Directive Yes / No Effective Date File Name No Information Encounters Encounter Description Practice Location Reason(s) For Visit Diagnoses Date Provider Providers Copied on Encounter [facility] , [address], [place], [place], [id number] , [place] tel:[phone] [facility] No Information 3 Woodrow Kiah. [address] [place] [address], [id number], [place]. tel:[phone] [facility] , [address], [place], [place], [address] , [place] tel:[phone] [facility] Posterior subcapsular polar senile cataract 3 [facility] [address], [place], [place], [address], [place]. tel:[phone] Referring Provider: JUDI SUGGS, [address], [place], [address] . tel:[phone] [facility] , [address] [place], [place], [id number] , [place] tel:[phone] [facility] Posterior subcapsular polar senile cataract Jul-2 0 3 Gwendolyn Rubin. [address], [address], [place], [id number], [place]. tel:[phone] Referring Provider: JUDI GIANNA SUGGS, [address], [place], [address] . tel:[phone] [facility] , [address] [place], [place], [id number] , [place] tel:[phone] [facility] Posterior subcapsular polar senile cataract 3 Sadaf Mccoy. [address] [place], [place], [id number], [place]. tel:[phone] Referring Provider: JUDI GIANNA SUGGS, [address], [place], [address] . tel:[phone] [facility] , [address], [place], [place], [address] , [place] tel:[phone] [facility] Posterior subcapsular polar senile cataract 0 3 Gwendolyn Rubin. [address], [address], [place], [place], [id number], [place]. tel:[phone] Referring Provider: Scottie Alexandre, [address], [address], [place], [address] . tel:[phone] OFFICE/OUTPA TIENT VISIT, [facility] , [address] [place], [place], [id number] , [place] tel:[phone] [facility] Posterior subcapsular polar senile cataractDermatochala sisDermatochalasisPo sterior subcapsular polar senile cataractDermatochala sisHypertensive retinopathy Oct-201 3 Claudio jose alfredo Holman. [address], [place], [place], [id number], . tel:[phone] Referring Provider: JUDI SUGGS, [address], [place], [address] . tel:[phone] Family History Family Member Type Diagnosis Age At Onset No Information Payers Payer name Insurance type Covered alliance party ID Authoriza tibryan(s) [place] GLENKylee [id number] Social History Type Description Quantity Date Captured [...]
== END 2024-08-30 15:08 | disposition home or self-care (01) ==
LOC: HO.MRI 15:07
PROVIDERS: PCP Physician Assistant; Visit Provider Physician Assistant
DX: M24.271 Disorder of ligament, right ankle (principal); M25.471 Effusion, right ankle; S82.891A Other fracture of right lower leg, initial encounter for closed fracture
CPT/HCPCS: 73721; 99212

== ENCOUNTER 2024-09-27 08:47 | Outpatient (RCR) | payer OTHER, SELFPAY ==
--- NOTE | 2024-09-12 11:01 | MHC.PT.EP ---
[facility] [place] [facility] [place] Office [place] Office [address] Brielle Bo [address] [phone] F: [phone] F: [phone] F: [phone] F: [phone] Physical Therapy Plan of Care Date of Evaluation: 09/12/24 Date of Surgery: Diagnosis: sprain unspecified ligament of R ankle achilles tendinitis R leg R ankle sprain, R achilles teninitis, ROM, gentle strength, proprioceptive training, heel cord strengthening Assessment: 64 y/o male referred to PT with sprain unspecified ligament of R ankle; achilles tendinitis R leg; R ankle sprain, R achilles teninitis, ROM, gentle strength, proprioceptive training, heel cord strengthening. Pt had MRI showing grade 2 lateral ankle sprain of ATFL/ PTFL, mild sprain deltoid ligament, posterior tibialis tenosynovitis, and effusion. He reports pain and difficulty with everything such as walking, stairs, getting in/OOB, chores, dressing with LEFS 5/80. Examination shows limited ankle ROM, limited gastroc-soleus length, decreased strength, swelling, pain and impaired gait pattern. Recommend PT 2x/week for 5 weeks to address impairments, implement HEP, and optimize functional mobility. Frequency and Duration: The patient will be seen 2x/week for 5 weeks Short Term Goals: 3 weeks I with HEP Improve R ankle dorsiflexion to 10* Volleyball Commentator Goals: 5 weeks I with HEP and self management of sx Pt will be able to ambulate with symetrical stride length > 15 min with pain < 3/10 Pt will be able to ascend/descend stairs in step through pattern with one rail pain < 3/10 Treatment Plan: Modalities to reduce pain, spasms and effusion. Manual therapy to restore motion and function. Therapeutic exercise to improve strength and flexibility. Neuromuscular re-education for posture and balance. Therapeutic activities to return to functional activities of daily living. Electronically signed by: Radha Flynn PT Please sign and return to therapist. Thank you for your referral.
--- NOTE | 2024-10-30 10:49 | MHC.PT.DC ---
[facility] [place] [facility] [place] [facility] [place] [facility] [address] 140 [facility] [phone] F: [phone] F: [phone] F: [phone] F: [phone] Physical Therapy Discharge Report Diagnosis: sprain unspecified ligament of R ankle achilles tendinitis R leg R ankle sprain, R achilles teninitis, ROM, gentle strength, proprioceptive training, heel cord strengthening Date of Surgery: Date of Evaluation: 09/12/24 Date of Discharge: 10/30/24 Treatments to Date: 1 Cancellations to Date: 0 No Shows to Date: 0 Discharge Status: Patient Elected to Stop Discharge Summary: Pt did not f/u with further visits following evaluation stating he has second opinion with another MD. D/c at this time Electronically signed by: Radha Flynn PT Please sign and return to therapist. Thank you for your referral.
== END 2024-10-30 10:50 | disposition home or self-care (01) ==
LOC: HO.PT 08:47
PROVIDERS: PCP Physician Assistant; Visit Provider Physician Assistant
DX: S93.401D Sprain of unspecified ligament of right ankle, subsequent encounter (principal); M76.61 Achilles tendinitis, right leg
CPT/HCPCS: 97110; 97162

== ENCOUNTER 2024-10-16 10:26 | Outpatient (AMB) | payer OTHER, SELFPAY ==
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
[2024-10-16 11:17] VITALS: BP 140/100; PULSE 55; TEMP 36.4; O2SAT 98
--- OUTSIDE RECORDS SUMMARY | 2024-10-16 11:31 | XMS_ITS | Clinical Summary ---
Author Organization [address] [place] [address] [facility] Address [address] [place] [address] Phone Care Team Providers Care Life Support Technician Name Role Phone Navarro Saucedo Primary Care Provider Allergies Active Allergy Reactions Criticality Noted Date Comments Venlafaxine 08/31/2023 Medications Medication Sig Dispensed Refills Start Date End Date Status diclofenac (VOLTAREN) 1 % topical gel Apply 4 g topically 2 times daily. 08/31/2023 Active Social History Tobacco Use Types Packs/Day Years Used Date Smoking Tobacco: Never Assessed Sex and Gender Information Value Date Recorded Sex Assigned at Not on file Gender Identity Not on file Sexual Orientation Not on file Last Filed Vital Signs Vital Sign Reading Time Taken Comments Blood Pressure - - Pulse - - Temperature - - Respiratory Rate - - Oxygen Saturation - - Inhaled Oxygen Concentration - - Weight 99.8 kg (220 lb) 10/12/2023 9:59 AM EST Height 177.8 cm (5' 10 ) 10/12/2023 9:59 AM EST Body Mass Index 31.57 10/12/2023 9:59 AM EST Plan of Treatment Upcoming Encounters Date Type Department Care Team (Late st Contact Info) Description 11/21/2024 2:45 PM EST Consult Orthopedic Surgery - [place] [address] [phone] Simon Shirley DPM [address] [address] Health Maintenance Due Date Last Done Comments DTaP,Tdap,and Td Vaccines (1 - Tdap) 02/16/1979 Zoster Vaccines (1 of 2) 02/16/2010 Cholesterol Screening (Lipid Panel) 10/20/2023 Colorectal Cancer Screening: Colonoscopy 10/20/2023 Depression Screening 10/20/2023 HIV Screening 10/20/2023 Hepatitis C Screening 10/20/2023 Social Influencers of Health Screening 10/20/2023 COVID-19 Vaccine (1 - 2023-2 5 season) 2024 Influenza Vaccine (#1) 2024 RSV Immunization Patients 60 + Years Old (1 - 1-dose 75+ series) 02/16/2035 HIB Vaccines Aged Out No longer eligi ble based on patient's age to complete this topic HPV Vaccines Aged Out No longer eligi ble based on patient's age to complete this topic Hepatitis A Vaccines Aged Out No long er eligible based on patient's age to complete this topic Hepatitis B Vaccines Aged Out No long er eligible based on patient's age to complete this topic IPV Vaccines Aged Out No longer eligi ble based on patient's age to complete this topic MMR Vaccines Aged Out No longer eligi ble based on patient's age to complete this topic Meningococcal ACWY Vaccine Aged Out N o longer eligible based on patient's age to complete this topic Pneumococcal Vaccine: Pediat rics (0 to 5 Years) and At-Risk Patients (6 to 64 Years) Aged Out No longer eligible b ased on patient's age to complete this topic RSV Immunization Patients Un opal 20 months Aged Out No longer eligible b ased on patient's age to complete this topic Varicella Vaccines Aged Out No longer eligible based on patient's age to complete this topic Care Teams Life Support Technician Relationship Specialty Start Date End Date Navarro Saucedo PA [address] [place] [address] PCP - General Physician School Attendance Secretary 09/04/24
--- OUTSIDE RECORDS SUMMARY | 2024-10-16 11:31 | XMS_ITS | Continuity of Care Document ---
Author Organization [facility] Address [address] [place] [address] Phone Care Team Providers Care Janitorial Cleaner Name Role Phone Woodrow OD, Kiah Unavailable [...] - Active Procedures Procedure Date FACILITY FEE 32247 CATARACT SURG W/IOL, 1 STAGE ANESTH, LENS SURGERY OPHTHALMIC BIOMETRY OFFICE/OUTPATIENT VISIT, [facility] Advance Directives Directive Yes / No Effective Date File Name No Information Encounters Encounter Description Practice Location Reason(s) For Visit Diagnoses Date Provider Providers Copied on Encounter [facility] , [address], [place], [place], [id number] , [place] tel:[phone] [facility] No Information 3 Woodrow Kiah. [address] [place] [address], [id number], [place]. tel:[phone] [facility] , [address], [place], [place], [address] , [place] tel:[phone] [facility] Posterior subcapsular polar senile cataract 3 [facility]. [address], [place], [place], [id number], [place]. tel:[phone] Referring Provider: JUDI SUGGS, [address], [place], [address] . tel:[phone] [facility] , [address] [place], [place], [address] , [place] tel:[phone] [facility] Posterior subcapsular polar senile cataract Jul-2 0 3 Gwendolyn Rubin. [address], [address], [place], [id number], [place]. tel:[phone] Referring Provider: JUDI GIANNA SUGGS, [address], [place], [address] . tel:[phone] [facility] , [address] [place], [place], [address] , [place] tel:[phone] [facility] Posterior subcapsular polar senile cataract 3 Sadaf Mccoy. [address] [place], [place], [id number], [place]. tel:[phone] Referring Provider: JUDI GIANNA SUGGS, [address], [place], [address] . tel:[phone] [facility] , [address], [place], [place], [address] , [place] tel:[phone] [facility] Posterior subcapsular polar senile cataract 0 3 Gwendolyn Rubin. [address], [place], [place], [id number], [place]. tel:[phone] Referring Provider: Scottie Alexandre, [address], [address], [place], [address] . tel:[phone] OFFICE/OUTPA TIENT VISIT, [facility] , [address] [place], [place], [address] , [place] tel:[phone] [facility] Posterior subcapsular polar senile cataractDermatochala sisDermatochalasisPo sterior subcapsular polar senile cataractDermatochala sisHypertensive retinopathy Oct-201 3 Claudio jose alfredo [address]man. [address], [place], [place], [id number], . tel:[phone] Referring Provider: JUDI SUGGS, [address], [place], [address] . tel:[phone] Family History Family Member Type Diagnosis Age At Onset No Information Payers Payer name Insurance type Covered republican ID Authoriza tibryan(s) [place] GLENKylee [id number] Social History Type Description Quantity Date Captured [...]
== END 2024-10-16 12:59 | disposition home or self-care (01) ==
PROVIDERS: PCP Physician Assistant; Visit Provider Physician Assistant
DX: J02.9 Acute pharyngitis, unspecified (principal); H61.22 Impacted cerumen, left ear

== ENCOUNTER 2024-10-16 10:26 | Outpatient (REF) | payer OTHER, SELFPAY ==
--- OUTSIDE RECORDS SUMMARY | 2024-10-16 13:18 | XMS_ITS | Continuity of Care Document ---
Author Organization [facility] Address [address] [place] [address] Phone Care Team Providers Care Manufacturing Director Name Role Phone Woodrow OD, Kiah Unavailable [...] - Active Procedures Procedure Date FACILITY FEE 52678 CATARACT SURG W/IOL, 1 STAGE ANESTH, LENS SURGERY OPHTHALMIC BIOMETRY OFFICE/OUTPATIENT VISIT, [facility] Advance Directives Directive Yes / No Effective Date File Name No Information Encounters Encounter Description Practice Location Reason(s) For Visit Diagnoses Date Provider Providers Copied on Encounter [facility] , [address], [place], [place], [id number] , [place] tel:[phone] [facility] No Information 3 Woodrow Kiah. [address] [place] [address], [id number], [place]. tel:[phone] [facility] , [address], [place], [place], [id number] , [place] tel:[phone] [facility] Posterior subcapsular polar senile cataract 3 [facility]. [address], [place], [place], [id number], [place]. tel:[phone] Referring Provider: JUDI SUGGS, [address], [place], [address] . tel:[phone] [facility] , [address] [place], [place], [id number] , [place] tel:[phone] [facility] Posterior subcapsular polar senile cataract Jul-2 0 3 Gwendolyn Rubin. [address], [address], [place], [id number], [place]. tel:[phone] Referring Provider: JUDI GIANNA SUGGS, [address], [place], [address] . tel:[phone] [facility] , [address] [place], [place], [id number] , [place] tel:[phone] [facility] Posterior subcapsular polar senile cataract 3 Sadaf Mccoy. [address] [place], [place], [id number], [place]. tel:[phone] Referring Provider: JUDI GIANNA SUGGS, [address], [place], [address] . tel:[phone] [facility] , [address], [place], [place], [id number] , [place] tel:[phone] [facility] Posterior subcapsular polar senile cataract 0 3 Gwendolyn Rubin. [address], [place], [place], [id number], [place]. tel:[phone] Referring Provider: Scottie Alexandre, [address], [address], [place], [address] . tel:[phone] OFFICE/OUTPA TIENT VISIT, [facility] , [address] [place], [place], [id number] , [place] tel:[phone] [facility] Posterior subcapsular polar senile cataractDermatochala sisDermatochalasisPo sterior subcapsular polar senile cataractDermatochala sisHypertensive retinopathy Oct-201 3 Claudio jose alfredo [address]man[address], [place], [place], [id number], . tel:[phone] Referring Provider: JUDI SUGGS, [address], [place], [address] . tel:[phone] Family History Family Member Type Diagnosis Age At Onset No Information Payers Payer name Insurance type Covered libertarian ID Authoriza tibryan(s) [place] GLENKylee [id number] Social History Type Description Quantity Date Captured [...]
--- OUTSIDE RECORDS SUMMARY | 2024-10-16 13:18 | XMS_ITS | Clinical Summary ---
Author Organization [address] [place] [address] [facility] Address [address] [place] [address] Phone Care Team Providers Care Brim Raiser Name Role Phone Navarro Saucedo Primary Care [...] 2:45 PM EST Consult Orthopedic Surgery - [place] [address] [phone] Simon Shirley DPM [address] [address] Health Maintenance Due Date Last Done Comments [...] age to complete this topic Care Teams Brim Raiser Relationship Specialty Start Date End Date Navarro Saucedo PA [address] [place] [address] PCP - General Physician Inspector Finishing 09/04/24
== END 2024-10-16 10:27 | disposition home or self-care (01) ==
LOC: HO.LAB 10:26
PROVIDERS: PCP Physician Assistant; Visit Provider Physician Assistant
DX: H61.22 Impacted cerumen, left ear (principal); J02.9 Acute pharyngitis, unspecified
CPT/HCPCS: 69210; 87070; 87880; 99212

== ENCOUNTER 2024-10-16 12:04 | Outpatient (REF) | payer OTHER, SELFPAY ==
--- OUTSIDE RECORDS SUMMARY | 2024-10-16 14:01 | XMS_ITS | Clinical Summary ---
Author Organization [address] [place] [address] [facility] Address [address] [place] [address] Phone Care Team Providers Care Competitive Athlete Name Role Phone Navarro Saucedo Primary Care [...] 2:45 PM EST Consult Orthopedic Surgery - [place] [address] [phone] Simon Shirley DPM [address] [address] Health Maintenance Due Date Last Done Comments [...] age to complete this topic Care Teams Competitive Athlete Relationship Specialty Start Date End Date Navarro Saucedo PA [address] [place] [address] PCP - General Physician Family Centered Specialist 09/04/24
[2024-10-16 15:11] LABS: Monotest Negative (Negative)
== END 2024-10-16 12:05 | disposition home or self-care (01) ==
LOC: HO.HMGCLDS 12:04
PROVIDERS: Visit Provider Physician Assistant
DX: J02.9 Acute pharyngitis, unspecified (principal)
CPT/HCPCS: 36415; 86308

== ENCOUNTER 2024-10-18 08:36 | Outpatient (REF) | payer OTHER, SELFPAY ==
--- OUTSIDE RECORDS SUMMARY | 2024-10-21 12:45 | XMS_ITS | Clinical Summary ---
Author Organization [address] [place] [address] [facility] Address [address] [place] [address] Phone Care Team Providers Care Grade Checker Name Role Phone Navarro Saucedo Primary Care [...] 2:45 PM EST Consult Orthopedic Surgery - [place] [address] [phone] Simon Shirley DPM [address] [address] Health Maintenance Due Date Last Done Comments [...] age to complete this topic Care Teams Grade Checker Relationship Specialty Start Date End Date Navarro Saucedo PA [address] [place] [address] PCP - General Physician Department Editor 09/04/24
--- OUTSIDE RECORDS SUMMARY | 2024-10-21 12:45 | XMS_ITS | Continuity of Care Document ---
Author Organization [facility] Address [address] [place] [address] Phone Care Team Providers Care Parts Manager Name Role Phone Woodrow OD, Kiah Unavailable [...] - Active Procedures Procedure Date FACILITY FEE 81521 CATARACT SURG W/IOL, 1 STAGE ANESTH, LENS SURGERY OPHTHALMIC BIOMETRY OFFICE/OUTPATIENT VISIT, [facility] Advance Directives Directive Yes / No Effective Date File Name No Information Encounters Encounter Description Practice Location Reason(s) For Visit Diagnoses Date Provider Providers Copied on Encounter [facility] , [address], [place], [place], [address] , [place] tel:[phone] [facility] No Information 3 Woodrow Kiah. [address] [place] [address], [id number], [place]. tel:[phone] [facility] , [address], [place], [place], [address] , [place] tel:[phone] [facility] Posterior subcapsular polar senile cataract 3 [facility]. [address], [place], [place], [address], [place]. tel:[phone] Referring Provider: JUDI SUGGS, [address], [place], [address] . tel:[phone] [facility] , [address] [place], [place], [address] , [place] tel:[phone] [facility] Posterior subcapsular polar senile cataract Jul-2 0 3 Gwendolyn Rubin. [address], [address], [place], [id number], [place]. tel:[phone] Referring Provider: JUDI GIANNA SUGGS, [address], [place], [address] . tel:[phone] [facility] , [address] [place], [place], [address] , [place] tel:[phone] [facility] Posterior subcapsular polar senile cataract 3 Sadaf Mccoy. [address] [place], [place], [address], [place]. tel:[phone] Referring Provider: JUDI GIANNA SUGGS, [address], [place], [address] . tel:[phone] [facility] , [address], [place], [place], [address] , [place] tel:[phone] [facility] Posterior subcapsular polar senile cataract 0 3 Gwendolyn Rubin. [address], [address], [place], [place], [address], [place]. tel:[phone] Referring Provider: Scottie Alexandre, [address], [address], [place], [address] . tel:[phone] OFFICE/OUTPA TIENT VISIT, [facility] , [address] [place], [place], [address] , [place] tel:[phone] [facility] Posterior subcapsular polar senile cataractDermatochala sisDermatochalasisPo sterior subcapsular polar senile cataractDermatochala sisHypertensive retinopathy Oct-201 3 Claudio jose alfredo Holman. [address], [place], [place], [address], . tel:[phone] Referring Provider: JUDI SUGGS, [address], [place], [address] . tel:[phone] Family History Family Member Type Diagnosis Age At Onset No Information Payers Payer name Insurance type Covered libertarian ID Authoriza tibryan(s) [facility] [id number] Social History Type Description Quantity Date Captured [...]
== END 2024-10-18 08:37 | disposition home or self-care (01) ==
LOC: HO.HOSX 08:36
PROVIDERS: Visit Provider Physician Assistant
DX: Z13.89 Encounter for screening for other disorder (principal)

== ENCOUNTER 2025-02-25 09:22 | Outpatient (REF) | payer MEDICARE, MEDICAID, SELFPAY ==
[2025-02-25 09:48] LABS: Hematocrit 47.6 % (42.0-52.0); Hemoglobin 16.1 g/dl (14.0-18.0); Mean Corpuscular HGB Conc 33.8 g/dl (31.0-36.0); Mean Corpuscular Hemoglobin 31.8 pg (27.0-33.0); Mean Corpuscular Volume 94.1 fL (80.0-98.0); Mean Platelet Volume 10.9 fL (9.4-12.4); Platelet Count 168 X10*3/uL (160-400); Red Blood Count 5.06 X10*6/uL (4.60-5.80); Red Cell Distribution Width 14.5 % (11.0-16.0); White Blood Count 7.5 X10*3/uL (4.8-10.8)
--- OUTSIDE RECORDS SUMMARY | 2025-02-25 10:22 | XMS_ITS | Continuity of Care Document ---
Author Organization [facility] Address [address] [place] [address] Phone Care Team Providers Care Learning And Development Manager Name Role Phone Woodrow OD, Kiah [...] Location Reason(s) For Visit Diagnoses Date Provider [facility] , [address] [address], [place], [place], [id number] , tel:[phone] [facility] No Information 3 Woodrow Kiah. [address] [place], [place], [address], . tel:[phone] [facility] , [facility] [address], [place], [place], [address] , [place] tel:[phone] [facility] Posterior subcapsular polar senile cataract 3 [facility]. [address], [place], [place], [address], [place]. tel:[phone] [facility] , [address], [place], [place], [address] , [place] tel:[phone] [facility] Posterior subcapsular polar senile cataract 3 Gwendolyn Rubin. [address], [address], [place], [id number], [place]. tel:[phone] [facility] , [facility] [place], [place], [address] , [place] tel:[phone] [facility] Posterior subcapsular polar senile cataract 3 Sadaf Mccoy. [address] [place], [place], [address], [place]. tel:[phone] [facility] , [address] [place], [place], [address] , [place] tel:[phone] [facility] Posterior subcapsular polar senile cataract 3 Gwendolyn Rubin. [address], [address], [place], [address], . tel:[phone] [facility] , [address] [place], [place], [address] , [place] tel:[phone] [facility] cat eval (chief complaint) Posterior subcapsular polar senile cataractDermatochalasisDermato chalasisPosterior subcapsular polar senile cataractDermatochalasisHyperte nsive retinopathy 3 Claudio Holman. [address], [address], [place], [address], . tel:[phone] Family History Family Member Type Diagnosis Age At Onset No Information Payers Payer name Insurance type Covered alliance party ID Authoriza tibryan(s) [facility] [id number] Social History Type Description Quantity Date Captured [...]
[2025-02-25 10:53] LABS: Alanine Aminotransferase 39 U/L (0-40); Albumin Level 4.2 g/dL (3.5-5.0); Alkaline Phosphatase 75 U/L (39-117); Anion Gap 10 (12-20); Aspartate Amino Transferase 34 U/L (5-37); Bilirubin Total 0.6 mg/dL (0.0-1.0); Blood Urea Nitrogen 24 mg/dL (9-16); Calcium 9.1 mg/dL (8.4-10.2); Carbon Dioxide 24 mmol/L (22-29); Chloride 108 mmol/L (96-108); Cholesterol 195 mg/dL (<200); Estimated Glomerular Filt Rate 50; Glucose Fasting 116 mg/dL (60-99); HDL Cholesterol 28 mg/dL (>40); LDL Cholesterol Calculated 131 mg/dL (<100); Potassium 4.3 mmol/L (3.3-5.1); Sodium 138 mmol/L (135-145); Total Protein 7.2 g/dL (6.5-8.0); Triglycerides 181 mg/dL (<150); Uric Acid 10.4 mg/dL (3.4-7.0)
[2025-02-25 10:54] LABS: Prostate Specific Antigen Scr 1.59 ng/mL (<0.05-4.0)
== END 2025-02-25 09:23 | disposition home or self-care (01) ==
LOC: HO.LAB 09:22
PROVIDERS: PCP Physician Assistant; Visit Provider Physician Assistant
DX: M10.9 Gout, unspecified (principal); E78.2 Mixed hyperlipidemia; Z12.5 Encounter for screening for malignant neoplasm of prostate; I10 Essential (primary) hypertension
CPT/HCPCS: 36415; 80053; 80061; 84153; 84550; 85027

== ENCOUNTER 2025-03-03 10:00 | Outpatient (AMB) | payer MEDICARE, MEDICAID, SELFPAY ==
[2025-03-03 10:02] VITALS: BP 124/76; PULSE 58; TEMP 36.2; O2SAT 96; BMI 32.0
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
--- OUTSIDE RECORDS SUMMARY | 2025-03-03 10:59 | XMS_ITS | Continuity of Care Document ---
Author Organization [facility] Address [address] [place] [address] Phone Care Team Providers Care Counter Tacker Name Role Phone Woodrow OD, Kiah Unavailable [...] Location Reason(s) For Visit Diagnoses Date Provider [facility] [place] , [address] [address], [place], [place], [address] , tel:[phone] [facility] No Information 3 Woodrow Kiah. [address], [place], [address], . tel:[phone] [facility] , [address] [place] [address] [address], [place], [place], [address] , [place] tel:[phone] [facility] Posterior subcapsular polar senile cataract 3 [facility]. [address], [place], [place], [address], [place]. tel:[phone] [facility] , [address], [place], [place], [address] , [place] tel:[phone] [facility] Posterior subcapsular polar senile cataract 3 Gwendolyn Rubin. [address], [address], [place], [address], [place]. tel:[phone] [facility] , [facility], [place], [place], [address] , [place] tel:[phone] [facility] Posterior subcapsular polar senile cataract 3 Sadaf Mccoy. [address] [place], [place], [address], [place]. tel:[phone] [facility] , [address], [place], [place], [address] , [place] tel:[phone] [facility] Posterior subcapsular polar senile cataract 3 Gwendolyn Rubin. [address], [address], [place], [address], . tel:[phone] [facility] , [address] [place], [place], [address] , [place] tel:[phone] [facility] cat eval (chief complaint) Posterior subcapsular polar senile cataractDermatochalasisDermato chalasisPosterior subcapsular polar senile cataractDermatochalasisHyperte nsive retinopathy 3 Claudio Holman. [address], [address], [place], [address], . tel:[phone] Family History Family Member Type Diagnosis Age At Onset No Information Payers Payer name Insurance type Covered alliance party ID Authoriza tibryan(s) [facility] [id number] Social History Type Description Quantity Date Captured Comments Sex Male Smoking Status No Information Chief Complaint And Reason For Visit No Information History Of Present Illness Encounter Date Complaint History Of Prese nt Illness No Information Instructions Date Instruction Additional Infor maryjane Retinopathy, hyperte nsive OU. Entering BP today [...]
== END 2025-03-03 10:51 | disposition home or self-care (01) ==
LOC: HO.HMCH 10:01
PROVIDERS: PCP Physician Assistant; Visit Provider Physician Assistant
DX: I10 Essential (primary) hypertension (principal); I48.0 Paroxysmal atrial fibrillation; E78.2 Mixed hyperlipidemia; F41.1 Generalized anxiety disorder; F10.10 Alcohol abuse, uncomplicated; G47.33 Obstructive sleep apnea (adult) (pediatric); N17.9 Acute kidney failure, unspecified

== ENCOUNTER → 2025-03-03 10:00 | Outpatient (BNVA) | payer MEDICARE, SELFPAY | PROVIDERS: PCP Physician Assistant; Visit Provider Physician Assistant | DX: I10 Essential (primary) hypertension (principal); E78.2 Mixed hyperlipidemia; F41.1 Generalized anxiety disorder; F10.10 Alcohol abuse, uncomplicated; I48.0 Paroxysmal atrial fibrillation; G47.33 Obstructive sleep apnea (adult) (pediatric); N17.9 Acute kidney failure, unspecified; Z79.899 Other long term (current) drug therapy; Z13.31 Encounter for screening for depression; Z13.30 Encounter for screening examination for mental health and behavioral disorders, unspecified | CPT/HCPCS: 96127; 99212 ==

== ENCOUNTER 2025-03-04 08:49 | Outpatient (AMB) | payer MEDICARE, SELFPAY ==
[2025-03-04 09:16] VITALS: BP 130/78; PULSE 50; BMI 31.9
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
--- OUTSIDE RECORDS SUMMARY | 2025-03-04 09:16 | XMS_ITS | Continuity of Care Document ---
Author Organization [facility] Address [address] [place] [address] Phone Care Team Providers Care It Architecture Analyst Name Role Phone Woodrow OD, Kiah Unavailable [...] Location Reason(s) For Visit Diagnoses Date Provider [facility] , [address] [address], [place], [place], [id number] , tel:[phone] [facility] No Information 3 Woodrow Kiah. [address], [place], [id number], . tel:[phone] [facility] , [address] [place] [address] [address], [place], [place], [id number] , [place] tel:[phone] [facility] Posterior subcapsular polar senile cataract 3 [facility]. [address], [place], [place], [id number], [place]. tel:[phone] [facility] , [address], [place], [place], [address] , [place] tel:[phone] [facility] Posterior subcapsular polar senile cataract 3 Gwendolyn Rubin. [address], [address], [place], [id number], [place]. tel:[phone] [facility] , [facility], [place], [place], [address] , [place] tel:[phone] [facility] Posterior subcapsular polar senile cataract 3 Sadaf Mccoy. [address] [place], [place], [address], [place]. tel:[phone] [facility] , [address], [place], [place], [address] , [place] tel:[phone] [facility] Posterior subcapsular polar senile cataract 3 Gwendolyn Rubin. [address], [address], [place], [address], . tel:[phone] [facility] , [address] [place], [place], [address] , [place] tel:[phone] [facility] cat eval (chief complaint) Posterior subcapsular polar senile cataractDermatochalasisDermato chalasisPosterior subcapsular polar senile cataractDermatochalasisHyperte nsive retinopathy 3 Claudio Holman. [address], [address], [place], [address], . tel:[phone] Family History Family Member Type Diagnosis Age At Onset No Information Payers Payer name Insurance type Covered green party ID Authoriza tibryan(s) [facility] [id number] Social History Type Description Quantity Date Captured [...]
== END 2025-03-04 09:44 | disposition home or self-care (01) ==
LOC: HO.HCS 08:49
PROVIDERS: PCP Physician Assistant; Visit Provider Internal Medicine
DX: I48.0 Paroxysmal atrial fibrillation (principal); I47.10 Supraventricular tachycardia, unspecified; I49.1 Atrial premature depolarization; I49.3 Ventricular premature depolarization; I10 Essential (primary) hypertension; I25.10 Atherosclerotic heart disease of native coronary artery without angina pectoris
CPT/HCPCS: 93010; 99214; G2211

== ENCOUNTER → 2025-03-04 08:49 | Outpatient (BNVA) | payer MEDICARE, SELFPAY | PROVIDERS: PCP Physician Assistant; Visit Provider Internal Medicine | DX: I48.0 Paroxysmal atrial fibrillation (principal); I47.10 Supraventricular tachycardia, unspecified; I49.1 Atrial premature depolarization; I49.3 Ventricular premature depolarization; I10 Essential (primary) hypertension; I25.10 Atherosclerotic heart disease of native coronary artery without angina pectoris | CPT/HCPCS: 93005; 99212 ==

== ENCOUNTER → 2025-03-10 08:29 | Outpatient (REF) | payer MEDICARE, SELFPAY ==
--- OUTSIDE RECORDS SUMMARY | 2025-03-10 08:53 | XMS_ITS | Continuity of Care Document ---
Author Organization [facility] Address [address] [place] [address] Phone Care Team Providers Care End Trimmer Name Role Phone Woodrow OD, Kiah Unavailable [...] Location Reason(s) For Visit Diagnoses Date Provider [facility] , [address], [place], [place], [id number] , tel:[phone] [facility] No Information 3 Woodrow Kiah. [address], [address], . tel:[phone] [facility] , [address] [place] [address] [address], [place], [place], [address] , [place] tel:[phone] [facility] Posterior subcapsular polar senile cataract 3 [facility]. [address], [place], [place], [address], [place]. tel:[phone] [facility] , [address], [place], [place], [address] , [place] tel:[phone] [facility] Posterior subcapsular polar senile cataract 3 Gwendolyn Rubin. [address], [address], [place], [address], [place]. tel:[phone] [facility] , [facility] [address], [place], [place], [address] , [place] tel:[phone] [facility] Posterior subcapsular polar senile cataract 3 Sadaf Mccoy. [address] [place], [place], [address], [place]. tel:[phone] [facility] , [address], [place], [place], [address] , [place] tel:[phone] [facility] Posterior subcapsular polar senile cataract 3 Gwendolyn Rubin. [address], [address], [place], [address], . tel:[phone] [facility] , [address], [place], [place], [address] , [place] tel:[phone] [facility] Posterior subcapsular polar senile cataractDermatochalasisDermato chalasisPosterior subcapsular polar senile cataractDermatochalasisHyperte nsive retinopathy 3 Claudio Holman. [address], [address], [place], [address], . tel:[phone] Family History Family Member Type Diagnosis Age At Onset No Information Payers Payer name Insurance type Covered democrat ID Cesar hinds(s) [facility] [id number] Social History Type Description Quantity Date Captured [...]
== END ==
LOC: HO.CARD 08:29
PROVIDERS: PCP Physician Assistant; Visit Provider Internal Medicine
DX: I48.0 Paroxysmal atrial fibrillation (principal)
CPT/HCPCS: 93242

== ENCOUNTER → 2025-03-10 08:32 | Outpatient (BNV) | payer MEDICARE, SELFPAY | PROVIDERS: PCP Physician Assistant; Visit Provider Internal Medicine | DX: I47.10 Supraventricular tachycardia, unspecified (principal); I49.3 Ventricular premature depolarization | CPT/HCPCS: 93244 ==

== ENCOUNTER 2025-08-25 08:31 | Outpatient (REF) | payer MEDICARE, SELFPAY ==
--- OUTSIDE RECORDS SUMMARY | 2025-08-25 08:53 | XMS_ITS ---
Author Name [facility] Organization Unknown Care Team Organization Name Specialty Phone Email Start Date End Da te [facility] Prasad Dwyer Primary Care 06/28/2023 024 [facility] NULL Primary Care 06/01/2023 05/13/2024
--- OUTSIDE RECORDS SUMMARY | 2025-08-25 08:53 | XMS_ITS | Clinical Summary ---
Author Organization [address] [place] [address] Address [address] [place] [address] Phone Care Team Providers Care Child Care Group Leader Name Role Phone Navarro Saucedo Primary Care Provider [phone] Allergies Active Allergy Reactions Criticality Noted Date Comments Venlafaxine 08/31/2023 Medications diclofenac (VOLTAREN) 1 % topical gel Apply 4 g topically 2 times daily. Active Social History Tobacco Use Types Packs/Day Years Used Date Smoking Tobacco: Never Assessed Sex and Gender Information Value Date Recorded Sex Assigned at Not on file Legal Sex Male 8:47 PM EST Gender Identity Not on file Sexual Orientation Not on file Last Filed Vital Signs Vital Sign Reading Time Taken Comments Blood Pressure - - Pulse - - Temperature - - Respiratory Rate - - Oxygen Saturation - - Inhaled Oxygen Concentration - - Weight 99.8 kg (220 lb) 11/21/2024 2:39 PM EST Height 177.8 cm (5' 10 ) 11/21/2024 2:39 PM EST Body Mass Index 31.57 11/21/2024 2:39 PM EST Plan of Treatment Health Maintenance Due Date Last Done Comments Colorectal Cancer Screening: Colonoscopy 1960 DTaP,Tdap,and Td Vaccines (1 - Tdap) 02/16/1979 Pneumococcal Vaccine: 50+ Ye ars (1 of 1 - PCV) 02/16/2010 Zoster Vaccines (1 of 2) 02/16/2010 Abdominal Aortic Aneurysm (A AA) Screen 10/20/2023 Cholesterol Screening (Lipid Panel) 10/20/2023 Hepatitis C Screening 10/20/2023 Medicare Annual Wellness Visit 10/20/2023 Social Influencers of Health Screening 10/20/2023 Depression Screening 09/25/2024 Falls Risk Assessment 02/16/2025 COVID-19 Vaccine (2024-2 6 season) 2025 Influenza Vaccine (#1) 2025 RSV Immunization Adult Patie nts (1 - 1-dose 75+ series) 02/16/2035 HIB [...] patient's age to complete this topic Meningococcal B Vaccine Aged Out No l onger eligible based on patient's age to complete this topic RSV Immunization Patients Un opal 20 months Aged Out No longer eligible b ased on patient's age to complete this topic Varicella Vaccines Aged Out No longer eligible based on patient's age to complete this topic Insurance [facility] MEDICARE MEDICAID - [place] HU[employer] MEDICARE ADVANTAGE on file Care Teams Child Care Group Leader Relationship Specialty Start Date End Date Navarro Saucedo PA PCP - General Physician [employer] 09/04/24
--- OUTSIDE RECORDS SUMMARY | 2025-08-25 08:53 | XMS_ITS | Clinical Summary ---
Author Organization [facility] Address [address] [facility] [address] [place], [place] [address] Phone Care Team Providers Care Brim Stitcher Name Role Phone Pcp, Unknown Primary Care Provider Unavailabl e Social History Tobacco Use Types Packs/Day Years Used Date Smoking Tobacco: Never Assessed Education Answer Date Recorded Are you interested in more education? Not on igor e 01/20/2023 Are you concerned about learning? Not on file 01/20/2023 No 01/20/2023 No 01/20/2023 Digital Access Answer Date Recorded No 02/21/2023 No 02/21/2023 No 02/21/2023 Reliable internet access at home? Not on file 02/21/2023 Device with a working camera? Not on file Sex and Gender Information Value Date Recorded Sex Assigned at Not on file Legal Sex Male 9:18 AM EST Gender Identity Not on file Sexual Orientation Not on file Plan of Treatment Not on file Medical Devices Not on file Insurance [address] [place], [place] [address] [address] [address] HMO POS HMO [place] [address] [place] [address] [place] [address] [place] [address] [facility]MO [facility] Care Teams Brim Stitcher Relationship Specialty Start Date End Date Pcp, Unknown PCP - General 06/02/23 Additional Source Comments The information contained in this document represents components of the legal health record. It is not the complete legal health record.[facility]
--- OUTSIDE RECORDS SUMMARY | 2025-08-25 08:53 | XMS_ITS | Encounter Summary ---
Author Organization [facility] Address [address] [facility] [address] [place] [address] Phone Care Team Providers Care Law Firm Consultant Name Role Phone Pcp, Unknown Primary Care Provider Unavailabl e Encounter Details Date Type Department Care Team (Late st Contact Info) Description 08/23/2018 Ancillary Orders [facility] [address] [place] [address] [place] [address] Brian Khan, DO [address] [place] [address] Palpitations Social History Tobacco Use Types Packs/Day Years Used Date Smoking Tobacco: Never Assessed Sex and Gender Information Value Date Recorded Sex Assigned at Not on file Legal Sex Male 9:18 AM EST Gender Identity Not on file Sexual Orientation Not on file documented as of this encounter Plan of Treatment Not on file documented as of this encounter Results * Holter Monitor 24 Hours (08/23/2018 11:22 AM EST) Anatomical Region Laterality Modality Heart Other Narrative 08/23/2018 2:53 PM EST Holter monitor report Indication palpitations Findings: The underlying rhythm is a normal sinus rhythm with an average heart rate of 60 bpm, minimum heart rate 47 bpm, maximum heart rate 111 bpm. There were very rare isolated PVCs. There were very rare isolated premature atrial contractions and only a few atrial couplets. No abnormal arrhythmias. Conclusion: Normal Holter monitor. Procedure Note Jake Nichols MD - 08/23/2018 Holter monitor report Indication palpitations Findings: The underlying rhythm is a normal sinus rhythm with an average heart rateof 60 bpm, minimum heart rate 47 bpm, maximum heart rate 111 bpm. There were very rare isolated PVCs. There were very rare isolated premature atrial contractions and only a fewatrial couplets. No abnormal arrhythmias. Conclusion: Normal Holter monitor. us Brian Khan DO [facility] ORDERABLE S Final Result documented in this encounter Visit Diagnoses Diagnosis Palpitations Palpitations documented in this encounter Care Teams Law Firm Consultant Relationship Specialty Start Date End Date Pcp, Unknown PCP - General 06/02/23 documented as of this encounter Additional Source Comments The information contained in this document represents components of the legal health record. It is not the complete legal health record.[facility]
[2025-08-25 09:10] LABS: Hematocrit 47.0 % (42.0-52.0); Hemoglobin 15.7 g/dl (14.0-18.0); Mean Corpuscular HGB Conc 33.4 g/dl (31.0-36.0); Mean Corpuscular Hemoglobin 31.9 pg (27.0-33.0); Mean Corpuscular Volume 95.5 fL (80.0-98.0); NRBC Abs Auto 0.000 X10*3/uL (0.0-0.012); NRBC Pct Auto 0.0 /100WBC (0.0-0.2); Platelet Count 223 X10*3/uL (160-400); Red Blood Count 4.92 X10*6/uL (4.60-5.80); White Blood Count 11.8 X10*3/uL (4.8-10.8)
[2025-08-25 09:38] LABS: Alanine Aminotransferase 39 U/L (0-40); Albumin Level 4.1 g/dL (3.5-5.0); Alkaline Phosphatase 74 U/L (39-117); Anion Gap 14 (12-20); Aspartate Amino Transferase 35 U/L (5-37); Blood Urea Nitrogen 34 mg/dL (9-16); Calcium 8.9 mg/dL (8.4-10.2); Carbon Dioxide 23 mmol/L (22-29); Chloride 105 mmol/L (96-108); Cholesterol 192 mg/dL (<200); Estimated Glomerular Filt Rate 57; HDL Cholesterol 34 mg/dL (>40); Potassium 3.7 mmol/L (3.3-5.1); Sodium 138 mmol/L (135-145); Total Protein 6.9 g/dL (6.5-8.0); Triglycerides 187 mg/dL (<150)
== END 2025-08-25 08:32 | disposition home or self-care (01) ==
LOC: HO.LAB 08:31
PROVIDERS: PCP Physician Assistant; Visit Provider Physician Assistant
DX: I10 Essential (primary) hypertension (principal); E78.2 Mixed hyperlipidemia
CPT/HCPCS: 36415; 80053; 80061; 82043; 82570; 85027

== ENCOUNTER 2025-09-03 09:43 | Outpatient (AMB) | payer MEDICARE, SELFPAY ==
[2025-09-03 10:06] VITALS: BP 112/64; PULSE 63; RESP 18; O2SAT 96; BMI 31.2
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
== END 2025-09-03 10:53 | disposition home or self-care (01) ==
PROVIDERS: PCP Physician Assistant; Visit Provider Physician Assistant
DX: I10 Essential (primary) hypertension (principal); E78.2 Mixed hyperlipidemia; F10.10 Alcohol abuse, uncomplicated; I48.0 Paroxysmal atrial fibrillation; M10.9 Gout, unspecified

== ENCOUNTER → 2025-09-03 09:43 | Outpatient (BNVA) | payer MEDICARE, SELFPAY | PROVIDERS: PCP Physician Assistant; Visit Provider Physician Assistant | DX: I10 Essential (primary) hypertension (principal); E78.2 Mixed hyperlipidemia; F10.10 Alcohol abuse, uncomplicated; I48.0 Paroxysmal atrial fibrillation; M10.9 Gout, unspecified | CPT/HCPCS: 99212 ==

== ENCOUNTER 2025-09-09 08:43 | Outpatient (AMB) | payer MEDICARE, SELFPAY ==
[2025-09-09 08:55] VITALS: BP 90/62; PULSE 65; BMI 31.3
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
--- OUTSIDE RECORDS SUMMARY | 2025-09-09 09:25 | XMS_ITS | Clinical Summary ---
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
--- OUTSIDE RECORDS SUMMARY | 2025-09-09 09:25 | XMS_ITS | Encounter Summary ---
Author Organization [facility] Address [address] [place] [id number] Phone Care Team Providers Care Retail Services Professional Name Role Phone Pcp, Unknown Primary Care Provider Unavailabl e Encounter Details Date Type Department Care Team (Late st Contact Info) Description 08/23/2018 Ancillary Orders [facility] [address] [place] [address] [place] [address] Brian Khan, DO [address] [place] [address] Palpitations Social History Tobacco Use Types Packs/Day [...] Palpitations documented in this encounter Care Teams Retail Services Professional Relationship Specialty Start Date End Date Pcp, Unknown PCP - General 06/02/23 documented as of this encounter Additional Source Comments The information contained in this document represents components of the legal health record. It is not the complete legal health record.[facility]
--- OUTSIDE RECORDS SUMMARY | 2025-09-09 09:25 | XMS_ITS | Clinical Summary ---
Author Organization [facility] Address [address] [place], [place] [id number] Phone Care Team Providers Care Customer Field Representative Name Role Phone Pcp, Unknown Primary Care [...] file Medical Devices Not on file Insurance [address] [place], [place] [id number] [place] [address] [address]MO [place] [address] [place] [address] [place] [id number] [address] [place] [address] [facility] Care Teams Customer Field Representative Relationship Specialty Start Date End Date Pcp, Unknown PCP - General 06/02/23 Additional Source Comments The information contained in this document represents components of the legal health record. It is not the complete legal health record.[facility]
== END 2025-09-09 09:22 | disposition home or self-care (01) ==
LOC: HO.HCS 08:44
PROVIDERS: PCP Physician Assistant; Visit Provider Nurse Practitioner Family
DX: I48.0 Paroxysmal atrial fibrillation (principal); I10 Essential (primary) hypertension; I25.10 Atherosclerotic heart disease of native coronary artery without angina pectoris
CPT/HCPCS: 93010; 99214; G2211

== ENCOUNTER → 2025-09-09 08:43 | Outpatient (BNVA) | payer MEDICARE, SELFPAY | PROVIDERS: PCP Physician Assistant; Visit Provider Nurse Practitioner Family | DX: I48.0 Paroxysmal atrial fibrillation (principal); I10 Essential (primary) hypertension; I25.10 Atherosclerotic heart disease of native coronary artery without angina pectoris; F17.210 Nicotine dependence, cigarettes, uncomplicated; R00.2 Palpitations | CPT/HCPCS: 93005; 99212 ==

== ENCOUNTER 2025-09-23 21:26 | Emergency (ER) | payer MEDICARE, SELFPAY ==
--- OUTSIDE RECORDS SUMMARY | 2013-08-21 07:03 | XMS_ITS | Continuity of Care Document ---
Author Organization [facility] Address [address] [place] [address] Phone Care Team Providers Care Cna Hha Name Role Phone Woodrow OD, Kiah Unavailable Unavailable Allergies, Adverse Reactions, Alerts Substance Reaction Status Criticality No Known allergies Medications Medication Instructions Dosage Effective Dates (start - stop) Status Comments CLONIDINE (unknown strength) Not Available - Active ALPRAZOLAM INTENSOL (unknown strength) Not Available - Active metoprolol tartrate (unknown strength) Not Available - Active MECLIZINE HCL (unknown strength) Not Available - Active Advance Directives Directive Yes / No Effective Date File Name No Information Encounters Encounter Description Practice Location Reason(s) For Visit Diagnoses Date Provider [facility] , [address] [address], [place], [place], [id number] , tel:[phone] [facility] No Information 3 Woodrow Kiah. [address], [place], [id number], . tel:[phone] [facility] , [address] [place] [address] [address], [place], [place], [id number] , [place] tel:[phone] [facility] Posterior subcapsular polar senile cataract 3 [facility]. [address], [place], [place], [id number], [place]. tel:[phone] [facility] , [address], [place], [place], [id number] , [place] tel:[phone] [facility] Posterior subcapsular polar senile cataract 3 Gwendolyn Rubin. [address], [address], [place], [id number], [place]. tel:[phone] [facility] , [facility] [place], [place], [id number] , [place] tel:[phone] [facility] Posterior subcapsular polar senile cataract 3 Sadaf Mccoy. [address] [place], [place], [id number], [place]. tel:[phone] [facility] , [address] [place], [place], [id number] , [place] tel:[phone] [facility] Posterior subcapsular polar senile cataract 3 Gwendolyn Rubin. [address], [address], [place], [id number], . tel:[phone] [facility] , [address] [place], [place], [id number] , [place] tel:[phone] [facility] Posterior subcapsular polar senile cataractDermatochalasisDermato chalasisPosterior subcapsular polar senile cataractDermatochalasisHyperte nsive retinopathy 3 Claudio Holman. [address], [address], [place], [id number], . tel:[phone] Family History Family Member Type Diagnosis Age At Onset No Information Payers Payer name Insurance type Covered alliance party ID Authorvidhyaa tibryan(s) [facility] CI [id number] Social History Type Description Quantity Date Captured Comments Sex Male Smoking Status No Information Chief Complaint And Reason For Visit No Information History Of Present Illness Encounter Date Complaint History Of Prese nt Illness No Information Instructions Date Instruction Additional Infor maryjane Dermatochalasis OU - Continue to monitor. 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 PE that there is a cataract OS, mild but meets criteria for cataract surgery. If patient is bothered by it after CE OD then will schedule CE OS. Reviewed risks, benefits, alternatives of surgery. Discussed need for Rx at D&N post-op, GASH, and refractive endpoint. Option of CE w/ IOL OD only at this time. Patient wishes to proceed w/surgery with standard IOL set for distance. Patient understands that he will need glasses for reading and best distance VA due to astigmatism. Related to Senile, (PSC) Jun- Retinopathy, hyperte nsive OU. Entering BP today was 167/108, pulse 73, though 20 mins. later dropped to 158/97. - Discussed surgery requirement that BP be under 200 systolic and 100 diastolic, otherwise surgery will be cancelled. Pt understands. Related to Retinopathy, hypertensive Assessments Type Assessment Date No Information
--- NOTE | 2025-09-23 | ECG_ITS ---
Test Reason : HBP Blood Pressure : */* mmHG Vent. Rate : 51 BPM Atrial Rate : 51 BPM P-R Int : 160 ms QRS Dur : 92 ms QT Int : 460 ms P-R-T Axes : 11 18 56 degrees QTcB Int : 423 ms Sinus bradycardia Nonspecific ST abnormality Borderline ECG When compared with ECG of 02-Dec-2023 08:41, No significant change was found Referred By: Generic ED Physician Electronically Signed By: ELMER CULVER
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
[2025-09-23 21:42] VITALS: BP 220/100; PULSE 78; RESP 18; TEMP 36.7; O2SAT 96; BMI 30.9
[2025-09-23 21:48] LABS: MANUAL DIFF FLAG NO
[2025-09-23 21:49] LABS: Hematocrit 43.8 % (42.0-52.0); Hemoglobin 14.8 g/dl (14.0-18.0); Imm Gran Abs Auto 0.06 X10*3/uL (0.00-0.03); Imm Gran Pct Auto 0.7 % (0.0-0.4); Lymphocytes Absolute Auto 3.6 X10*3/uL (1.2-4.9); Mean Corpuscular HGB Conc 33.8 g/dl (31.0-36.0); Mean Corpuscular Hemoglobin 31.7 pg (27.0-33.0); Mean Corpuscular Volume 93.8 fL (80.0-98.0); NRBC Abs Auto 0.000 X10*3/uL (0.0-0.012); NRBC Pct Auto 0.0 /100WBC (0.0-0.2); Platelet Count 239 X10*3/uL (160-400); Red Blood Count 4.67 X10*6/uL (4.60-5.80); White Blood Count 9.0 X10*3/uL (4.8-10.8)
[2025-09-23 21:50] VITALS: BP 211/106
[2025-09-23 22:05] LABS: Alanine Aminotransferase 31 U/L (0-40); Albumin Level 4.2 g/dL (3.5-5.0); Alkaline Phosphatase 69 U/L (39-117); Anion Gap 13 (12-20); Aspartate Amino Transferase 24 U/L (5-37); Blood Urea Nitrogen 22 mg/dL (9-16); Calcium 9.3 mg/dL (8.4-10.2); Carbon Dioxide 26 mmol/L (22-29); Chloride 104 mmol/L (96-108); Creatinine Clr Calc Pharmacy 75.6; Estimated Glomerular Filt Rate > 60; Lipase 23 U/L (8-78); Magnesium 1.9 mg/dL (1.6-2.6); Potassium 4.0 mmol/L (3.3-5.1); Sodium 139 mmol/L (135-145); Total Protein 7.4 g/dL (6.5-8.0)
[2025-09-23 22:12] LABS: Troponin-I High Sensitivity 4.5 ng/L (<3.5-35.0)
--- OUTSIDE RECORDS SUMMARY | 2025-09-24 01:37 | XMS_ITS | Clinical Summary ---
Author Organization [facility] Address [address] [place], [place] [id number] Phone Care Team Providers Care Church Warden Name Role Phone Pcp, Unknown Primary Care [...] file Medical Devices Not on file Insurance [address] [place], [place] [id number] [address] [address] H[place] POS [place] [address] [place] [address] [place] [id number] [address] [facility] Care Teams Church Warden Relationship Specialty Start Date End Date Pcp, Unknown PCP - General 06/02/23 Additional Source Comments The information contained in this document represents components of the legal health record. It is not the complete legal health record.[facility]
--- OUTSIDE RECORDS SUMMARY | 2025-09-24 01:37 | XMS_ITS | Encounter Summary ---
Author Organization [facility] Address [address] [facility] [address] [place] [phone] Phone Care Team Providers Care Coagulator Name Role Phone Pcp, Unknown Primary Care Provider Unavailabl e Encounter Details Date Type Department Care Team (Late st Contact Info) Description 08/23/2018 Ancillary Orders [facility] [address] [place] [address] [place] [address] Brian Khan, DO [address] [place] [address] Palpitations Social History Tobacco Use Types Packs/Day [...] Palpitations documented in this encounter Care Teams Coagulator Relationship Specialty Start Date End Date Pcp, Unknown PCP - General 06/02/23 documented as of this encounter Additional Source Comments The information contained in this document represents components of the legal health record. It is not the complete legal health record.[facility]
--- OUTSIDE RECORDS SUMMARY | 2025-09-24 01:37 | XMS_ITS | Clinical Summary ---
Author Organization [address] [place] [address] [address] [place] [address] Phone Care Team Providers Care Landing Gear Mechanic Name Role Phone Navarro Saucedo Primary Care [...] patient's age to complete this topic Insurance [facility] MEDICARE MEDICAID - [place] [employer] MEDICARE ADVANTAGE on file Care Teams Landing Gear Mechanic Relationship Specialty Start Date End Date Navarro Saucedo PA PCP - General Physician [employer] Turbine Room Operator 09/04/24
== END 2025-09-24 02:18 | disposition left against medical advice (07) ==
LOC: HO.ED 09-24 01:36
PROVIDERS: Emergency Provider Emergency Medicine; PCP Physician Assistant
DX: I10 Essential (primary) hypertension (principal); R00.1 Bradycardia, unspecified; Z72.0 Tobacco use; Z86.79 Personal history of other diseases of the circulatory system; Z79.899 Other long term (current) drug therapy; Z53.21 Procedure and treatment not carried out due to patient leaving prior to being seen by health care provider
CPT/HCPCS: 36415; 80053; 83690; 83735; 84484; 85025; 93005; 99282; 99283

== ENCOUNTER → 2025-09-23 21:35 | Outpatient (BNV) | payer MEDICARE, SELFPAY | PROVIDERS: Emergency Provider Emergency Medicine; PCP Physician Assistant; Visit Provider Internal Medicine | DX: R00.1 Bradycardia, unspecified (principal) | CPT/HCPCS: 93010 ==